=== PATIENT | female | born 1935 | race Caucasian/White ===

== ENCOUNTER 2017-09-16 19:59 | Emergency (ER) | payer MEDICARE, OTHER ==
[2015-10-06 09:55] VITALS: Ht 167.6 cm; Wt 55.8 kg
[~2017-09-16] VITALS: Ht 167.6 cm; Wt 55.8 kg
[~2017-09-16 19:59] MED LIST changes: -DILT-102 PO
--- NOTE | 2017-09-16 20:14 | ER Report ---
History and Physical Time Seen By MD: 20:13 Hx. of Stated Complaint: PT REPORTS PAIN UNDER HER LEFT BREAST WHEN SHE BREATHS. PT REPORTS THAT THE PAIN HAS BEEN THERE FOR A COUPLE OF DAYS. HPI/ROS CHIEF COMPLAINT: short of breath and chest pain HISTORY OF PRESENT ILLNESS: This is an 82 year old female. She has had some pain in the left chest for about 3 days now. Pain worsens with breathing. Has had a cough. No fevers. Daughter states that she was having some confusion at home. Has a history of atrial fibrillation and heart valve repair in the past. No history of HI. No history of PE. She is on a blood thinner, Dabigitran, for her atrial fibrillation. Found to be significantly hypoxic when vital were taken. REVIEW OF SYSTEMS: Constitutional: No fever or chills. ENT: No sore throat. No congestion. Cardiovascular: As above. Respiratory: As above. Gastrointestinal: No abdominal pain. No nausea or vomiting. Genitourinary: No dysuria or trouble urinating. Musculoskeletal: No musculoskeletal pain. Skin: No rashes. Neurological: General weakness, but no focal weakness. Allergies: Coded Allergies: Sulfa (Sulfonamide Antibiotics) (Verified Allergy, Severe, ANAPHYLAXIS, 09/16/17) edoxaban (Verified Allergy, Unknown, 09/16/17) Home Meds Active Scripts Dabigatran Etexilate Mesylate (PRADAXA) 75 Mg Capsule, 1 CAP PO BID, #180 CAPSULE 4 Refills Prov:SOHA ALBRECHT MD 07/22/17 Reported Medications Diltiazem Hcl (CARTIA XT) 120 Mg Cap.er.24h, 120 MG PO DAILY 09/16/17 Lisinopril (LISINOPRIL) 20 Mg Tablet, 20 MG PO QDAY, TAB 04/09/17 Hydrochlorothiazide (HYDROCHLOROTHIAZIDE) 12.5 Mg Capsule, 1 TAB PO QDAY, CAPSULE 04/09/17 Carvedilol (CARVEDILOL) 12.5 Mg Tablet, 6.25 MG PO BID, #10 TAB 04/09/17 Allopurinol (ZYLOPRIM) 300 Mg Tablet, 300 MG PO QDAY, TAB 04/09/17 Discontinued Reported Medications Calcium Carbonate (TUMS) Unknown Strength Tab.chew, PO, TAB.CHEW 04/09/17 Multivitamin (DAILY MULTIPLE VITAMIN) 1 Each Tablet, 1 TAB PO DAILY 04/09/17 Diltiazem Hcl (DILTIAZEM 24HR ER) 240 Mg Cap.er.24h, 120 MG PO QDAY 04/09/17 Fluticasone/Salmeterol (ADVAIR 100-50 DISKUS) 1 Each Disk.w.dev, 1 EACH IH QDAY 04/09/17 Past Medical/Surgical History Hypertension, arthritis, hiatal hernia, uterine prolapse, mitral valve repair in 1992, hernia surgery, tonsillectomy, cataracts Reviewed Nurses Notes: Yes Hx Smoking: Yes Smoking Status: Never Smoker, Former Smoker Hx Substance Use Disorder: No Hx Alcohol Use: Yes Constitutional Vital Sign - Last 24 Hours 09/16/17 09/16/17 09/16/17 09/16/17 20:03 20:05 20:07 20:10 Temp 97.7 Pulse 66 Resp 26 B/P (MAP) 55/44 (48) 87/60 87/60 (69) Pulse Ox 58 O2 Delivery Room Air O2 Flow Rate 10.0 09/16/17 09/16/17 09/16/17 09/16/17 20:14 20:15 20:30 20:30 Pulse 69 70 63 Resp 44 16 46 B/P (MAP) 69/59 (62) Pulse Ox 96 95 O2 Flow Rate 6.0 09/16/17 09/16/17 09/16/17 09/16/17 20:30 20:35 20:45 21:00 Pulse 75 63 70 Resp 16 44 43 B/P (MAP) 72/55 (61) Pulse Ox 96 94 91 O2 Delivery Oxy Mask O2 Flow Rate 10.0 09/16/17 09/16/17 09/16/17 09/16/17 21:30 21:45 21:53 21:55 Pulse 68 70 Resp 39 22 B/P (MAP) 83/63 (70) 86/60 (69) 97/63 (74) Pulse Ox 88 84 09/16/17 09/16/17 09/16/17 09/16/17 22:00 22:15 22:30 22:34 Pulse 70 74 Resp 29 24 41 B/P (MAP) 85/58 (67) 91/59 (70) 113/76 (88) Pulse Ox 78 89 88 09/16/17 09/16/17 09/16/17 22:45 22:50 23:00 Pulse 93 80 Resp 33 48 B/P (MAP) 48/22 (31) 81/58 (66) 100/59 (73) Pulse Ox 86 85 Intake and Output 09/16/17 09/16/17 09/17/17 15:00 23:00 07:00 Intake Total 1000 ml Balance 1000 ml Physical Exam General Appearance: The patient is alert. No acute distress. Eyes: Pupils are equal, round. No pallor, injection or icterus. ENT: Mucous membranes are moist. Normal oral mucosa. Posterior oropharynx is normal. Neck: Supple and non tender. Respiratory: Increased work of breathing. 58% on room air, needing 10 liters by oxymask to get sats into the 90s. Lungs are diminished throughout. There is accessory muscle use. Cardiovascular: Irregularly irregular rhythm, but normal rate. holosystolic murmur, distant sounding, gallops or rubs. Normal capillary refill. No edema. Gastrointestinal: Abdomen is soft and non tender. Nondistended. Neurological: Alert and oriented x3. No focal neurologic deficits. Skin: Warm and dry. No rashes. Musculoskeletal: No tenderness other than with palpation over anterior chest. DIFFERENTIAL DIAGNOSIS: After history and physical exam, differential diagnosis was considered for chest pain including but not limited to myocardial ischemia, pericarditis, pulmonary embolus, chest wall pain, pleural inflammation and pulmonary infectious causes. Medical Decision Making Data Points Result Diagram: 09/16/17200909/16/172009 Laboratory Hematology Test 09/16/17 20:10 09/16/17 21:18 09/16/17 22:30 Red Blood Count 4.87 M/uL (4.17-5.56) Mean Corpuscular Volume 94.3 fL (80.0-96.0) Mean Corpuscular Hemoglobin 30.7 pg (26.0-33.0) Mean Corpuscular Hemoglobin Concent 32.6 g/dL (32.0-36.0) Red Cell Distribution Width 15.7 % (11.5-14.5) Mean Platelet Volume 10.2 fL (7.2-11.1) Neutrophils (%) (Auto) 92.0 % (39.4-72.5) Lymphocytes (%) (Auto) 2.8 % (17.6-49.6) Monocytes (%) (Auto) 4.6 % (4.1-12.4) Eosinophils (%) (Auto) 0.1 % (0.4-6.7) Basophils (%) (Auto) 0.5 % (0.3-1.4) Nucleated RBC Relative Count (auto) 0.0 /100WBC Neutrophils # (Auto) 15.9 K/uL (2.0-7.4) Lymphocytes # (Auto) 0.5 K/uL (1.3-3.6) Monocytes # (Auto) 0.8 K/uL (0.3-1.0) Eosinophils # (Auto) 0.0 K/uL (0.0-0.5) Basophils # (Auto) 0.1 K/uL (0.0-0.1) Nucleated RBC Absolute Count (auto) 0.00 K/uL Peripheral Blood Smear No Y/N D-Dimer Quantitative (PE/DVT) 2.59 ug/ml (0-0.50) Sodium Level 135 mmol/L (137-145) Potassium Level 3.6 mmol/L (3.5-5.0) Chloride Level 93 mmol/L (98-107) Carbon Dioxide Level 29 mmol/L (22-31) Blood Urea Nitrogen 57 mg/dl (7-18) Creatinine 2.80 mg/dl (0.52-1.04) Glomerular Filtration Rate Calc 16.1 Random Glucose 146 mg/dl (75-110) Calcium Level 9.7 mg/dl (8.4-10.2) Total Bilirubin 0.9 mg/dl (0.2-1.3) Aspartate Amino Transf (AST/SGOT) 19 U/L (0-35) Alanine Aminotransferase (ALT/SGPT) 24 U/L (0-56) Alkaline Phosphatase 75 U/L (0-126) Troponin I 0.036 ng/ml B-Type Natriuretic Peptide 646 pg/ml (0-100) Total Protein 7.5 gm/dl (6.3-8.2) Albumin 3.9 g/dl (3.5-5.0) Urine Color [place] Urine Clarity Cloudy Urine pH 5.0 pH (4.8-9.5) Urine Specific [place] 1.018 Urine Protein 100 mg/dL (NEGATIVE) Urine Glucose (UA) Negative mg/dL (NEGATIVE) Urine Ketones Negative mg/dL (NEGATIVE) Urine Blood Negative (NEGATIVE) Urine Nitrite Negative (NEGATIVE) Urine Bilirubin Negative (NEGATIVE) Urine Urobilinogen Negative mg/dL (0.2-1.9) Urine Leukocyte Esterase Moderate (NEGATIVE) Urine RBC 12 /HPF (0-2/HPF) Urine WBC 75 /HPF (0-5/HPF) Urine Squamous Epithelial Cells Many /LPF (</=FEW) Urine Amorphous Crystals Few /HPF Urine Bacteria Negative /HPF (NONE-FEW) Urine Mucus Few /HPF (NONE-FEW) Lactate 1.7 mmol/L (0.7-2.1) Chemistry Test 09/16/17 20:10 09/16/17 21:18 09/16/17 22:30 White Blood Count 17.3 k/uL (4.5-11.0) Red Blood Count 4.87 M/uL (4.17-5.56) Hemoglobin 15.0 g/dL (12.0-16.0) Hematocrit 45.9 % (34.0-47.0) Mean Corpuscular Volume 94.3 fL (80.0-96.0) Mean Corpuscular Hemoglobin 30.7 pg (26.0-33.0) Mean Corpuscular Hemoglobin Concent 32.6 g/dL (32.0-36.0) Red Cell Distribution Width 15.7 % (11.5-14.5) Platelet Count 159 K/uL (150-450) Mean Platelet Volume 10.2 fL (7.2-11.1) Neutrophils (%) (Auto) 92.0 % (39.4-72.5) Lymphocytes (%) (Auto) 2.8 % (17.6-49.6) Monocytes (%) (Auto) 4.6 % (4.1-12.4) Eosinophils (%) (Auto) 0.1 % (0.4-6.7) Basophils (%) (Auto) 0.5 % (0.3-1.4) Nucleated RBC Relative Count (auto) 0.0 /100WBC Neutrophils # (Auto) 15.9 K/uL (2.0-7.4) Lymphocytes # (Auto) 0.5 K/uL (1.3-3.6) Monocytes # (Auto) 0.8 K/uL (0.3-1.0) Eosinophils # (Auto) 0.0 K/uL (0.0-0.5) Basophils # (Auto) 0.1 K/uL (0.0-0.1) Nucleated RBC Absolute Count (auto) 0.00 K/uL Peripheral Blood Smear No Y/N D-Dimer Quantitative (PE/DVT) 2.59 ug/ml (0-0.50) Glomerular Filtration Rate Calc 16.1 Calcium Level 9.7 mg/dl (8.4-10.2) Total Bilirubin 0.9 mg/dl (0.2-1.3) Aspartate Amino Transf (AST/SGOT) 19 U/L (0-35) Alanine Aminotransferase (ALT/SGPT) 24 U/L (0-56) Alkaline Phosphatase 75 U/L (0-126) Troponin I 0.036 ng/ml B-Type Natriuretic Peptide 646 pg/ml (0-100) Total Protein 7.5 gm/dl (6.3-8.2) Albumin 3.9 g/dl (3.5-5.0) Urine Color [place] Urine Clarity Cloudy Urine pH 5.0 pH (4.8-9.5) Urine Specific [place] 1.018 Urine Protein 100 mg/dL (NEGATIVE) Urine Glucose (UA) Negative mg/dL (NEGATIVE) Urine Ketones Negative mg/dL (NEGATIVE) Urine Blood Negative (NEGATIVE) Urine Nitrite Negative (NEGATIVE) Urine Bilirubin Negative (NEGATIVE) Urine Urobilinogen Negative mg/dL (0.2-1.9) Urine Leukocyte Esterase Moderate (NEGATIVE) Urine RBC 12 /HPF (0-2/HPF) Urine WBC 75 /HPF (0-5/HPF) Urine Squamous Epithelial Cells Many /LPF (</=FEW) Urine Amorphous Crystals Few /HPF Urine Bacteria Negative /HPF (NONE-FEW) Urine Mucus Few /HPF (NONE-FEW) Lactate 1.7 mmol/L (0.7-2.1) Coagulation Test 09/16/17 20:10 D-Dimer Quantitative (PE/DVT) 2.59 ug/ml Urinalysis Test 09/16/17 21:18 Urine Color [place] Urine Clarity Cloudy Urine pH 5.0 pH (4.8-9.5) Urine Specific [place] 1.018 Urine Protein 100 mg/dL (NEGATIVE) Urine Glucose (UA) Negative mg/dL (NEGATIVE) Urine Ketones Negative mg/dL (NEGATIVE) Urine Blood Negative (NEGATIVE) Urine Nitrite Negative (NEGATIVE) Urine Bilirubin Negative (NEGATIVE) Urine Urobilinogen Negative mg/dL (0.2-1.9) Urine Leukocyte Esterase Moderate (NEGATIVE) Urine RBC 12 /HPF (0-2/HPF) Urine WBC 75 /HPF (0-5/HPF) Urine Squamous Epithelial Cells Many /LPF (</=FEW) Urine Amorphous Crystals Few /HPF Urine Bacteria Negative /HPF (NONE-FEW) Urine Mucus Few /HPF (NONE-FEW) EKG/Imaging EKG Interpretation 12 lead EKG: Rhythm: Atrial fibrillation, rate 65 [place]: normal QRS: Low voltage ST segments: Nonspecific changes, artifact from her breathing is very significant Monitor Interpretation: Atrial Fibrillation Imaging EXAMINATION: Portable AP Chest HISTORY: Respiratory distress. COMPARISON: 10/03/2015. FINDINGS: Large hiatal hernia behind the heart. Adjacent bibasilar opacities may represent atelectasis or infiltrate. Increased interstitial markings bilaterally may represent a combination of chronic interstitial change and/or interstitial edema. No definite pleural effusion. No pneumothorax. Sternotomy with prior mitral valve surgery. Moderate cardiac enlargement, with central pulmonary vascular congestion. Aortic calcification. No acute osseous findings. IMPRESSION: 1. Large hiatal hernia. Adjacent bibasilar opacities may represent atelectasis and/or infiltrate. 2. Diffuse interstitial changes bilaterally may represent a combination of chronic interstitial change and/or interstitial edema. 3. Moderate cardiac enlargement. Sternotomy with prior mitral valve surgery. Report Dictated By: Arnulfo Hicks MD at 09/16/2017 8:37 PM ED Course/Re-evaluation Clinical Indication for ER IV: Hydration, IV Access ED Course We placed the patient on a nasal cannula at 6 liters per minute, but sats still in the 80s. Switched to an oxy-mask at 10 liters and she is less short of breath now and better mental status. Labs obtained and showed a leukocytosis with shift. She has chronic kidney disease with her creatinine usually about 1.4 , tonight it is 2.8 with a BUN of 57. Sodium mildly low at 135 and Chloride of 93. Troponin 0.036, BNP 646, d-dimer is 2.59. Chest x-ray as noted above, shows some bibasilar changes that radiology states could represent atelectasis or infiltrates. The patient is afebrile. She is on Dabigatran for atrial fibrillation. She does meet criteria for possible sepsis. Cannot rule out PE. Lactate pending. Blood cultures and urinalysis and urine culture ordered as well. NS 1000cc ordered as well and will provide more as needed. Will give Rocephin 1g IV and Azithromycin 500mg IV once the cultures are obtained. Also ordered Hydrocortisone 100mg IV as well for sepsis. She continues to improve. I have discussed the case with our hospitalist and we do not have a bed available for the patient. I spoke to the patient about this and they requested that I call down to [facility] for transfer at this time. Discussed the case with Dr. Darby, hospitalist at [facility]. I have ordered a second liter of fluid. Blood pressures are slightly improved, but still low, 90s over 60s now. Based on available transport options and patient condition, I elected to call for a helicopter for air transport. While awaiting the helicopter. The second liter of fluid was given. Her breathing remains stable on the oxygen and no further decline. Normal mental status. Lactate finally back at 1.7. Decision to Disposition Date: Sep 16, 2017 Decision to Disposition Time: 21:20 Depart Departure Latest Vital Signs Vital Signs Date Time Temp Pulse Resp B/P (MAP) Pulse Ox O2 Delivery O2 Flow Rate FiO2 09/16/17 23:00 80 48 100/59 (73) 85 09/16/17 20:30 Oxy Mask 10.0 09/16/17 20:05 97.7 Impression: Primary Impression: Pneumonia Additional Impressions: Sepsis Chest pain Hypoxia Condition: Condition Unchanged Disposition: XFER TO [facility] Referrals: SOHA ALBRECHT MD (PCP) Problem Qualifiers Primary Impression: Pneumonia Pneumonia type: due to unspecified organism Laterality: bilateral Lung location: lower lobe of lung Qualified Codes: J18.9 - Pneumonia, unspecified organism Additional Impressions: Sepsis Sepsis type: sepsis due to unspecified organism Qualified Codes: A41.9 - Sepsis, unspecified organism Chest pain Chest pain type: chest pain on breathing Qualified Codes: R07.1 - Chest pain on breathing DORIS RIOS MD Sep 16, 2017 20:14
[2017-09-16] MEDS ORDERED: ALBUTEROL/IPRATROPIUM 3 ML NEB ONE (20:17)
[2017-09-16] MEDS ORDERED: DILT-102 PO (20:18)
[2017-09-16] MEDS ORDERED: NS 0.9% 50 ML VIAL 50 ML ONE (20:31)
[2017-09-16] MEDS ORDERED: IOPAMIDOL 76% 75 ML INFUS BTL 0 ML ONE (20:31)
--- NOTE | 2017-09-16 20:32 | EKG ---
FACILITY: [facility] PATIENT NAME: KINGSLEY BRUNER : [id number] MR: [id number] V: [id number] EXAM DATE: ORDERING PHYSICIAN: DORIS RIOS TECHNOLOGIST: SHAY Diaz Reason : CARDIAC Blood Pressure : / mmHG Vent. Rate : 065 BPM Atrial Rate : 050 BPM P-R Int : 000 ms QRS Dur : 106 ms QT Int : 472 ms P-R-T Axes : 000 062 054 degrees QTc Int : 490 ms Atrial fibrillation Low voltage QRS ST and T wave abnormality, consider anterior ischemia or digitalis effect Prolonged QT Abnormal ECG When compared with ECG of 03-OCT-2015 11:00, Significant changes have occurred Confirmed by KAYA WELLINGTON ([id number]) on 09/17/2017 2:03:01 AM Referred By: Confirmed By:KAYA WELLINGTON
[2017-09-16 20:35] LABS: PLATELET COUNT, AUTOMATED 159 K/uL (150-450)
--- NOTE | 2017-09-16 20:48 | RADIOLOGY IMAGING REPORT ---
FACILITY: [facility] PATIENT NAME: Milagros Portillo : 1935 MR: [id number] V: [id number] EXAM DATE: ORDERING PHYSICIAN: DORIS RIOS TECHNOLOGIST: Location: [facility] [place] Patient: Milagros Portillo : 1935 Visit/Account:[id number] Date of Sevice: 09/16/2017 EXAMINATION: Portable AP Chest HISTORY: Respiratory distress. COMPARISON: 10/03/2015. FINDINGS: Large hiatal hernia behind the heart. Adjacent bibasilar opacities may represent atelectasis or infil trate. Increased interstitial markings bilaterally may represent a combination of chronic interstitia l change and/or interstitial edema. No definite pleural effusion. No pneumothorax. Sternotomy with prior mitral valve surgery. Moderate cardiac enlargement, with central pulmonary vasc ular congestion. Aortic calcification. No acute osseous findings. IMPRESSION: 1. Large hiatal hernia. Adjacent bibasilar opacities may represent atelectasis and/or infiltrate. 2. Diffuse interstitial changes bilaterally may represent a combination of chronic interstitial finley e and/or interstitial edema. 3. Moderate cardiac enlargement. Sternotomy with prior mitral valve surgery. Report Dictated By: Arnulfo Hicks MD at 09/16/2017 8:37 PM Report E-Signed By: Arnulfo Hicks MD at 09/16/2017 8:45 PM WSN:[id number]
[2017-09-16] MEDS ORDERED: ONDANSETRON 4 MG/2 ML VIAL IVP ONE (21:45)
[2017-09-16] MEDS ORDERED: MORPHINE 4 MG/ML SYR IVP ONE (21:45)
[2017-09-16] MEDS ORDERED: cefTRIAXone(*) 1 GM VIAL 1 GM in NS(*) 0.9% 100 ML ADDVANT BAG 100 ML IVPB ONE (21:55)
[2017-09-16] MEDS ORDERED: NS(*) 0.9% 1000 ML BAG 1,000 ML IV ONE ×2 (21:55→22:00)
[2017-09-16] MEDS ORDERED: AZITHROMYCIN(*) 500 MG 500 MG in NS(*) 0.9% 250 ML BAG 250 ML IVPB ONE (21:55)
[2017-09-16] MEDS ORDERED: HYDROCORTISONE 100 MG/2 ML IVP ONE (22:00)
[2017-09-16] MEDS ORDERED: HEPARIN (PORC) 5000 UN/ML VIAL IVP ONE (22:00)
[2017-09-16 23:45] VITALS: BP 82/51
== END 2017-09-16 23:55 | disposition short-term general hospital (02) ==
LOC: ER 20:35
DX: J18.9 Pneumonia, unspecified organism (principal); A41.9 Sepsis, unspecified organism
CPT/HCPCS: 36415; 71045; 81001; 83605; 83880; 84484; 85025; 85379; 87040; 87088; 93005; 94640; 96365; 96366; 96375; 99285; J0456; J0696; J1644; J1720; J2270; J2405; J7030; J7050; J7620; 82040; 82247; 82310; 82374; 82435; 82565; 82947; 84075; 84132; 84155; 84295; 84450; 84460; 84520; 87502; Q9967

== ENCOUNTER → 2017-09-16 | Outpatient (REF) ==
[2015-10-06 09:55] VITALS: BMI 26.0
[~2017-09-16] MED LIST: ACE3 PO; ALEN70TA44 PO; ALL300 PO; ALLO-119 PO; AMLO-101 PO; ASPI-1441 PO; ASPI81TA94 PO; BENA1TAB59 PO; CALC-515 PO; CALC-521 PO; CALC-852 PO; CARV12.578 PO; DABI75CA4 PO; DILT-102 PO; DILT180C81 PO; DILT240C PO; DILT240C76 PO; DOCU-416 PO; EDOX30TA PO; FLUT1DIS27 IH; HYDR12.556 PO; LISI-553 PO; LISI1TAB61 PO; LISI20TA29 PO; MULT-865 PO; MULT-885 PO; OXYC-373 PO
== END ==
LOC: AMB 23:28
PROVIDERS: ATTEND Nurse Practitioner
DX: Z02.9 Encounter for administrative examinations, unspecified (principal)

== ENCOUNTER → 2017-10-08 | Outpatient (REF) | payer MEDICARE, OTHER ==
[2015-10-06 09:55] VITALS: BMI 26.0
[~2017-10-08] MED LIST changes: +DILT-102 PO
== END ==
LOC: ZZLCC 13:05
PROVIDERS: ATTEND Family Medicine
DX: R63.4 Abnormal weight loss (principal)
CPT/HCPCS: 82310; 82374; 82435; 82565; 82947; 84132; 84295; 84443; 84520; 85027

== ENCOUNTER → 2017-11-07 | Outpatient (CLI) | payer MEDICARE, OTHER ==
[2015-10-06 09:55] VITALS: BMI 26.0
[~2017-11-07] MED LIST changes: +CAR6.25 PO
[2017-11-07 17:45] LABS: PLATELET COUNT, AUTOMATED 160 K/uL (150-450)
== END ==
LOC: LAB 17:22
PROVIDERS: ATTEND Family Medicine
DX: I10 Essential (primary) hypertension (principal); I48.91 Unspecified atrial fibrillation; M10.9 Gout, unspecified
CPT/HCPCS: 36415; 82040; 82247; 82310; 82374; 82435; 82565; 82947; 84075; 84132; 84155; 84295; 84450; 84460; 84520; 84550; 85025

== ENCOUNTER 2017-12-13 11:49 | Emergency (ER) | payer MEDICARE, OTHER ==
[2015-10-06 09:55] VITALS: Wt 52.2 kg
[~2017-12-13 11:49] MED LIST changes: +FLUT16SP19 NS; +RIVA15TA PO
--- NOTE | 2017-12-13 11:56 | ER Report ---
History and Physical Time Seen By MD: 11:56 HPI/ROS CHIEF COMPLAINT: Fall HISTORY OF PRESENT ILLNESS: This is an 82-year-old female who presents to the emergency department with her daughter status post fall. According to the daughter the patient fell this past Friday, mechanical in nature, hit her head on the oxygen concentrator unsure if she had a positive LOC. Patient was doing okay Friday but since then she has had increased neck pain and decreased cognitive function, the daughter does state that she normally has decreased cognitive function a baseline but seems to be worse over the last couple of days. No bleeding from the nose, ears, mouth. Patient is on Xarelto. Patient denies chest pain, short of breath, aches, fevers, nausea, vomiting, diarrhea, dysuria or headaches. REVIEW OF SYSTEMS: Constitutional: No fever, no chills. Eyes: No discharge. ENT: No sore throat. Cardiovascular: No chest pain, no palpitations. Respiratory: No cough, no shortness of breath. Gastrointestinal: No abdominal pain, no vomiting. Genitourinary: No hematuria. Musculoskeletal: As above. Skin: No rashes. Neurological: As above. Allergies: Coded Allergies: Sulfa (Sulfonamide Antibiotics) (Verified Allergy, Severe, ANAPHYLAXIS, 09/16/17) edoxaban (Verified Allergy, Unknown, 09/16/17) Home Meds Active Scripts Fluticasone Prop 50 Mcg Ns (FLONASE 50 MCG NS) 16 G[address] [place].susp, 2 SPRAYS NS QDAY for 30 Days, #1 BOT 4 Refills Prov:AYAH HINKLE MD 12/01/17 Rivaroxaban 15 Mg (XARELTO 15 MG) 15 Mg Tablet, 15 MG PO QAM for 30 Days, #30 TAB 4 Refills Prov:AYAH HINKLE MD 12/01/17 Diltiazem Hcl (CARTIA XT) 120 Mg Cap.er.24h, 120 MG PO DAILY for 90 Days, #90 CAP Prov:AYAH HINKLE MD 10/19/17 Lisinopril (LISINOPRIL) 20 Mg Tablet, 20 MG PO QDAY for 90 Days, #90 TAB Prov:AYAH HINKLE MD 10/19/17 Carvedilol (CARVEDILOL) 6.25 Mg Tab, 6.25 MG PO BID for 90 Days, #180 TAB Prov:AYAH HINKLE MD 10/19/17 Past Medical/Surgical History Patient has a past medical history of dizziness, hypertension, GERD, hiatal hernia, uterine prolapse with repair, arthritis, wears glasses, has cataracts, osteoporosis, osteopenia, mitral valve repair, tonsillectomy, A. fib. Reviewed Nurses Notes: Yes Hx Smoking: Yes Smoking Status: Never Smoker, Former Smoker Hx Substance Use Disorder: No Hx Alcohol Use: Yes Constitutional Vital Sign - Last 24 Hours 12/13/17 12/13/17 12/13/17 12/13/17 11:55 11:56 12:00 12:19 Temp 98.0 Pulse 95 76 Resp 20 B/P (MAP) 131/103 (112) 131/103 116/87 (97) Pulse Ox 91 89 O2 Delivery Room Air 12/13/17 12/13/17 12/13/17 12/13/17 12:30 12:55 13:00 13:19 Pulse 99 B/P (MAP) 101/75 (84) 109/74 (86) Pulse Ox 92 O2 Flow Rate 2.0 12/13/17 13:30 B/P (MAP) 109/80 (90) Physical Exam General Appearance: The patient is alert, has no immediate need for airway protection and no signs of toxicity, is ambulatory but requires more assistance than normal. Eyes: Pupils equal and round no pallor or injection. Sluggish pupils but responsive. ENT, Mouth: Mucous membranes are dry. No hemotympanum. Respiratory: There are no retractions, lungs are clear to auscultation. Cardiovascular: Irregular rate and rhythm, no murmurs, clicks or rubs. Gastrointestinal: Abdomen is soft and non tender, no masses, bowel sounds normal. Neurological: Alert and oriented to self, daughter and long-term memory however according to daughter she is at baseline for short-term memory. Following all commands. No focal neuro deficits. Moving all extremities. Skin: Warm and dry, no rashes. No abrasions, contusions or Jason sign. Musculoskeletal: Neck is supple, tenderness to the cervical spine around the C6 area. No step-offs, crepitus or bruising. No thoracic discomfort. Extremities are nontender, nonswollen and have full range of motion. DIFFERENTIAL DIAGNOSIS: After history and physical exam differential diagnosis was considered for head injury including but not limited to concussion, skull fracture, intraparenchymal contusion, subarachnoid, subdural and epidural hematoma. Medical Decision Making EKG/Imaging Imaging Location: [facility] Patient: Milagros Portillo : 1935 Visit/Account:[id number] Date of Sevice: 12/13/2017 HEAD W/O CONTRAST HISTORY: Fall COMPARISON STUDIES: Head CT 11/29/2016 TECHNIQUE: Contiguous axial images were obtained from the skull base to the vertex. One of the following dose optimization techniques was utilized in the performance of this exam: automated exposure control; adjustment of the mA and/ or kv according to patient size; or use of iterative reconstruction technique. Specific details can be referenced in the facility's radiology CT exam operational policy. FINDINGS: Hemorrhage: Negative Ventricles / sulci / fissures: Mild prominence of the ventricles and sulci consistent with atrophy, unchanged. Masses / midline shift: Negative White matter: Extensive periventricular/deep cerebral white matter low- attenuation consistent with small vessel disease. Rush-white differentiation: Negative Vessels: Negative Extra-axial spaces: Negative Bones/skull base: Negative Visualized mastoid air cells / paranasal sinuses: Negative Scalp and soft tissues: Negative. Other findings: None significant IMPRESSION: 1. Negative for acute intracranial blood or skull fracture. 2. Stable atrophy and small vessel disease. Report Dictated By: Renato Samuel MD at 12/13/2017 1:19 PM Report E-Signed By: Renato Samuel MD at 12/13/2017 1:21 PM WSN:[id number] Location: [facility] Patient: Milagros Portillo : 1935 Visit/Account:[id number] Date of Sevice: 12/13/2017 C-SPINE W/O CONTRAST HISTORY: Fall COMPARISON STUDIES: none TECHNIQUE: Axial images were obtained from the skull base through the upper thoracic spine without intravenous contrast. Coronal and sagittal reformatted images were obtained from the axial source data. One of the following dose optimization techniques was utilized in the performance of this exam: automated exposure control; adjustment of the mA and/or kv according to patient size; or use of iterative reconstruction technique. Specific details can be referenced in the facility's radiology CT exam operational policy. FINDINGS: Pre-vertebral soft tissues: Negative Fracture/alignment: 3 mm of anterolisthesis at C7-T1. Lucency through the lateral aspect of the C2 lateral mass extending into the vertebral foramen likely is chronic. Otherwise no evidence of acute fracture. Vertebral bodies: Negative Posterior elements: Multilevel advanced facet degeneration. Disc Spaces: Multilevel advanced degenerative disc disease with uncovertebral joint hypertrophy. Visualized soft tissues anterior neck: Negative Visualized lung / mediastinum: Negative Other findings: None significant IMPRESSION: 1. There is 3 mm of anterolisthesis at C7-T1 in a background of extensive degenerative change. 2. Lucency through the tip of the lateral mass of C2 extending into the vertebral foramen is likely chronic. Report Dictated By: Renato Samuel MD at 12/13/2017 1:21 PM Report E-Signed By: Renato Samuel MD at 12/13/2017 1:44 PM WSN:[id number] ED Course/Re-evaluation ED Course The patient was admitted to room. A history of physical obtained. Differential diagnoses were considered. A CT the head and neck were negative for any acute findings. Patient does have chronic degenerative changes in the cervical spine. I did review these results with the patient and the family. I did explain to them this is likely just a muscular type of injury, she can alternate ice and heat. I told them if she continues to have some mental status changes or the next week to 2 weeks to reconsider coming back into the ER or following up with Dr. Hinkle. The patient and family were in agreement with this plan of care and discharged home. Decision to Disposition Date: Dec 13, 2017 Decision to Disposition Time: 13:44 Depart Departure Latest Vital Signs Vital Signs Date Time Temp Pulse Resp B/P (MAP) Pulse Ox O2 Delivery O2 Flow Rate FiO2 12/13/17 13:30 109/80 (90) 12/13/17 13:19 99 92 12/13/17 12:55 2.0 12/13/17 11:56 98.0 20 Room Air Impression: Primary Impression: Fall Additional Impression: Neck pain, musculoskeletal Condition: Improved Disposition: HOME OR SELF-CARE Referrals: AYAH HINKLE MD (PCP) Patient Instructions: Acute Neck Pain (ED), Fall Prevention for Older Adults ( ED) Additional Instructions: Drink plenty of water. Get plenty of rest. Take Tylenol as needed for the neck discomfort. Be sure to remove objects on the floor that can cause a mechanical trip and fall. Follow up with Dr. Hinkle as scheduled. Return to the ED for any other concerns or worsening symptoms. Problem Qualifiers Primary Impression: Fall Encounter type: initial encounter Qualified Codes: W19.XXXA - Unspecified fall, initial encounter LIBRADO RAMAN [employer]GR[employer] DIRECTOR-BC Dec 13, 2017 11:56
--- NOTE | 2017-12-13 13:27 | RADIOLOGY IMAGING REPORT ---
FACILITY: [facility] PATIENT NAME: Milagros Portillo : 1935 MR: [id number] V: [id number] EXAM DATE: ORDERING PHYSICIAN: LIBRADO RAMAN TECHNOLOGIST: Location: [facility] Patient: Milagros Portillo : 1935 Visit/Account:[id number] Date of Sevice: 12/13/2017 HEAD W/O CONTRAST HISTORY: Fall COMPARISON STUDIES: Head CT 11/29/2016 TECHNIQUE: Contiguous axial images were obtained from the skull base to the vertex. One of the 1stdibs dose optimization techniques was utilized in the performance of this exam: automated exposure co ntrol; adjustment of the mA and/or kv according to patient size; or use of iterative reconstruction t echnique. Specific details can be referenced in the facility's radiology CT exam operational policy. FINDINGS: Hemorrhage: Negative Ventricles / sulci / fissures: Mild prominence of the ventricles and sulci consistent with atrophy, u nchanged. Masses / midline shift: Negative White matter: Extensive periventricular/deep cerebral white matter low-attenuation consistent with sm all vessel disease. Rush-white differentiation: Negative Vessels: Negative Extra-axial spaces: Negative Bones/skull base: Negative Visualized mastoid air cells / paranasal sinuses: Negative Scalp and soft tissues: Negative. Other findings: None significant IMPRESSION: 1. Negative for acute intracranial blood or skull fracture. 2. Stable atrophy and small vessel disease. Report Dictated By: Renato Samuel MD at 12/13/2017 1:19 PM Report E-Signed By: Renato Samuel MD at 12/13/2017 1:21 PM WSN:[id number]
[2017-12-13 13:30] VITALS: BP 109/80
--- NOTE | 2017-12-13 13:50 | RADIOLOGY IMAGING REPORT ---
[place] [facility] [place] NAME: Milagros Portillo : 1935 MR: [id number] V: [id number] EXAM DATE: ORDERING PHYSICIAN: LIBRADO RAMAN TECHNOLOGIST: Location: [facility] Patient: Milagros Portillo : 1935 Visit/Account:[id number] Date of Sevice: 12/13/2017 C-SPINE W/O CONTRAST HISTORY: Fall COMPARISON STUDIES: none TECHNIQUE: Axial images were obtained from the skull base through the upper thoracic spine without i ntravenous contrast. Coronal and sagittal reformatted images were obtained from the axial source data . One of the following dose optimization techniques was utilized in the performance of this exam: aut omated exposure control; adjustment of the mA and/or kv according to patient size; or use of iterativ e reconstruction technique. Specific details can be referenced in the facility's radiology CT exam op erational policy. FINDINGS: Pre-vertebral soft tissues: Negative Fracture/alignment: 3 mm of anterolisthesis at C7-T1. Lucency through the lateral aspect of the C2 la teral mass extending into the vertebral foramen likely is chronic. Otherwise no evidence of acute fra cture. Vertebral bodies: Negative Posterior elements: Multilevel advanced facet degeneration. Disc Spaces: Multilevel advanced degenerative disc disease with uncovertebral joint hypertrophy. Visualized soft tissues anterior neck: Negative Visualized lung / mediastinum: Negative Other findings: None significant IMPRESSION: 1. There is 3 mm of anterolisthesis at C7-T1 in a background of extensive degenerative change. 2. Lucency through the tip of the lateral mass of C2 extending into the vertebral foramen is likely c hronic. Report Dictated By: Renato Samuel MD at 12/13/2017 1:21 PM Report E-Signed By: Renato Samuel MD at 12/13/2017 1:44 PM WSN:[id number]
== END 2017-12-13 13:58 | disposition home or self-care (01) ==
LOC: ER 11:55
DX: M54.2 Cervicalgia (principal); W18.30XA Fall on same level, unspecified, initial encounter; M50.33 Other cervical disc degeneration, cervicothoracic region
CPT/HCPCS: 70450; 72125; 99283

== ENCOUNTER → 2018-01-07 | Outpatient (CLI) | payer MEDICARE, OTHER ==
[2015-10-06 09:55] VITALS: BMI 26.0
[2018-01-07 10:56] LABS: PLATELET COUNT, AUTOMATED 165 K/uL (150-450)
== END ==
LOC: LAB 10:17
PROVIDERS: ATTEND Family Medicine
DX: I48.91 Unspecified atrial fibrillation (principal); I10 Essential (primary) hypertension
CPT/HCPCS: 36415; 82310; 82374; 82435; 82565; 82947; 84132; 84295; 84520; 85025

== ENCOUNTER → 2018-06-23 | Outpatient (CLI) | payer MEDICARE, OTHER ==
[2015-10-06 09:55] VITALS: BMI 26.0
[~2018-06-23] MED LIST changes: +FLU180SY11 IM; +PNEU0.5D3 IM
[2018-06-23 14:24] LABS: PLATELET COUNT, AUTOMATED 187 K/uL (150-450)
== END ==
LOC: LAB 13:37
PROVIDERS: ATTEND Family Medicine
DX: I10 Essential (primary) hypertension (principal)
CPT/HCPCS: 36415; 82040; 82247; 82310; 82374; 82435; 82565; 82947; 84075; 84132; 84155; 84295; 84450; 84460; 84520; 85025

== ENCOUNTER 2018-10-30 05:25 | Inpatient (IN) | payer MEDICARE, OTHER ==
[~2018-10-30] VITALS: Ht 162.6 cm; Wt 50.8 kg
--- NOTE | 2018-10-30 05:02 | ER Report ---
History and Physical Time Seen By MD: 05:28 (RIKKI BURKS MD) HPI/ROS CHIEF COMPLAINT: Cough, confusion HISTORY OF PRESENT ILLNESS: Patient is an 83-year-old female from [place] presents to the emergency department by ambulance for approximately one week of cough congestion but increased confusion over the last 24 hours per EMS report. Patient herself is not a reliable historian although she is able to provide a somewhat of a useful history. The electronic medical record was also reviewed to obtain additional past medical history. Patient herself denies fevers or chills. She does report an upper respiratory infection including a cough for the last week. She denies any chest pain or chest pressure. Denies abdominal pain or nausea, vomiting or diarrhea. Per EMS upon arrival patient was found to be dyspneic with an O2 sat of 70%. She was initially placed on 15 L of oxygen with improvement of saturations into the upper 90 percentile range. During transport EMS was able to wean oxygen to 6 L nasal cannula keeping her saturations in the mid 90% range. There is no history of recent trauma. REVIEW OF SYSTEMS: Constitutional: No fever, no chills. Eyes: Clear ENT: No sore throat. No ear pain Cardiovascular: No chest pain, no palpitations. Respiratory: Dry cough with shortness of breath Gastrointestinal: No abdominal pain, no vomiting. Genitourinary: No hematuria. Musculoskeletal: No back pain. Skin: No rashes. Neurological: No headache. (RIKKI BURKS MD) Allergies: Coded Allergies: Sulfa (Sulfonamide Antibiotics) (Verified Allergy, Severe, ANAPHYLAXIS, 09/16/17) edoxaban (Verified Allergy, Unknown, 09/16/17) Home Meds Active Scripts Diltiazem Hcl (CARTIA XT) 120 Mg Cap.er.24h, 1 TAB PO DAILY for 90 Days, #90 CAP 4 Refills Prov:AYAH HINKLE MD 06/10/18 Carvedilol (CARVEDILOL) 6.25 Mg Tab, 6.25 MG PO daily for 90 Days, #180 TAB 4 Refills Prov:AYAH HINKLE MD 04/08/18 Lisinopril (LISINOPRIL) 20 Mg Tablet, 20 MG PO QDAY for 90 Days, #90 TAB 4 Refills Prov:AYAH HINKLE MD 7/25/18 Rivaroxaban 15 Mg (XARELTO 15 MG) 15 Mg Tablet, 1 TAB PO QAM for 90 Days, #90 TAB 4 Refills Prov:AYAH HINKLE MD 04/01/18 Reported Medications Calcium Carbonate (TUMS) 200 Mg Tab.chew, 200 MG PO, TAB.CHEW 10/30/18 Discontinued Scripts Fluticasone Prop 50 Mcg Ns (FLONASE 50 MCG NS) 16 Gm [place].susp, 2 SPRAYS NS QDAY for 30 Days, #1 BOT 4 Refills Prov:AYAH HINKLE MD 12/01/17 Past Medical/Surgical History Past medical history for stroke, atrial fibrillation, hypertension, pulmonary hypertension, gastroesophageal reflux disease, gout, osteoporosis, mitral valve repair in 1992, hysterectomy, hernia repair. Patient is DNR/DNI, (RIKKI BURKS MD) Hx Smoking: Yes Smoking Status: Never Smoker, Former Smoker Hx Substance Use Disorder: No Hx Alcohol Use: Yes (RIKKI BURKS MD) Constitutional Vital Sign - Last 24 Hours 10/30/18 10/30/18 10/30/18 10/30/18 05:04 05:06 05:25 05:40 Temp 100.2 Pulse 100 ? Resp 28 B/P (MAP) 141/120 Pulse Ox 91 O2 Delivery Nasal Cannula O2 Flow Rate 6.0 10/30/18 10/30/18 10/30/18 10/30/18 05:55 06:55 07:03 07:10 Pulse ? 94 Resp 35 34 B/P (MAP) 114/82 (93) Pulse Ox 81 92 10/30/18 07:20 B/P (MAP) 102/75 (84) Intake and Output0 10/29/18 10/29/18 10/30/18 15:00 23:00 07:00 Output Total 100 ml Balance -100 ml (RIKKI MENDIOLA MD) Physical Exam General/Constitutional: Patient is awake, alert, nontoxic and in no acute respiratory distress. Head: Normocephalic and atraumatic. Eyes: Conjunctival clear, Pupils are equal and reactive to light. Extraocular muscles are intact and symmetrical. Sclera are clear and anicteric. Ears:External canals are clear. Tympanic membranes are clear with normal landmarks and light reflex. Nares: No rhinorrhea or bleeding. Turbinates are pink and moist. Oropharyngeal: Mucous membranes are moist. There is no pharyngeal erythema or exudate. There are no palatal petechiae. Uvula is midline and symmetrical. Neck: Supple, no adenopathy. Positive JVD Cardiovascular: Heart is regular rate and rhythm without audible murmurs, rubs or gallops. Pulmonary: Lungs are poor scattered rhonchi throughout, also increased respiratory rate. Abdomen: Soft, nontender, no guarding or peritoneal signs. Extremities: No gross deformities, No peripheral cyanosis. Neuro: Alert, pleasantly confused Skin: No rashes, skin is warm dry and well perfused. (RIKKI BURKS MD) Medical Decision Making Data Points Result Diagram: 10/30/18 04510/30/18 045 Laboratory Hematology Test 10/30/18 04:50 10/30/18 05:30 10/30/18 05:38 10/30/18 08:02 Red Blood Count 4.12 M/uL (4.17-5.56) Mean Corpuscular Volume 89.6 fL (80.0-96.0) Mean Corpuscular Hemoglobin 29.5 pg (26.0-33.0) Mean Corpuscular Hemoglobin Concent 33.0 g/dL (32.0-36.0) Red Cell Distribution Width 15.0 % (11.5-14.5) Mean Platelet Volume 9.2 fL (7.2-11.1) Neutrophils (%) (Auto) 82.4 % (39.4-72.5) Lymphocytes (%) (Auto) 4.8 % (17.6-49.6) Monocytes (%) (Auto) 12.5 % (4.1-12.4) Eosinophils (%) (Auto) 0.1 % (0.4-6.7) Basophils (%) (Auto) 0.2 % (0.3-1.4) Nucleated RBC Relative Count (auto) 0.1 /100WBC Neutrophils # (Auto) 8.8 K/uL (2.0-7.4) Lymphocytes # (Auto) 0.5 K/uL (1.3-3.6) Monocytes # (Auto) 1.3 K/uL (0.3-1.0) Eosinophils # (Auto) 0.0 K/uL (0.0-0.5) Basophils # (Auto) 0.0 K/uL (0.0-0.1) Nucleated RBC Absolute Count (auto) 0.02 K/uL Prothrombin Time 19.4 seconds (12.0-14.4) Prothromb Time International Ratio 1.62 Activated Partial Thromboplast Time 36 seconds (23-35) Sodium Level 139 mmol/L (137-145) Potassium Level 4.5 mmol/L (3.5-5.0) Chloride Level 100 mmol/L (98-107) Carbon Dioxide Level 30 mmol/L (22-31) Blood Urea Nitrogen 52 mg/dl (7-18) Creatinine 1.70 mg/dl (0.52-1.04) Glomerular Filtration Rate Calc 28.6 Random Glucose 159 mg/dl (75-110) Calcium Level 9.5 mg/dl (8.4-10.2) Magnesium Level 1.9 mg/dl (1.7-2.2) Total Bilirubin 0.9 mg/dl (0.2-1.3) Aspartate Amino Transf (AST/SGOT) 46 U/L (0-35) Alanine Aminotransferase (ALT/SGPT) 40 U/L (0-56) Alkaline Phosphatase 154 U/L (0-126) B-Type Natriuretic Peptide 1500 pg/ml (0-100) Total Protein 6.9 g/dl (6.3-8.2) Albumin 3.8 g/dl (3.5-5.0) Human Chorionic Gonadotropin, Qual Negative (NEGATIVE) Influenza Virus Type A (PCR) Negative (NEGATIVE) Influenza Virus Type B (PCR) Negative (NEGATIVE) Urine Color [place] Urine Clarity Cloudy Urine pH 5.0 pH (4.8-9.5) Urine Specific [place] 1.020 Urine Protein 100 mg/dL (NEGATIVE) Urine Glucose (UA) Negative mg/dL (NEGATIVE) Urine Ketones Trace mg/dL (NEGATIVE) Urine Blood Large (NEGATIVE) Urine Nitrite Negative (NEGATIVE) Urine Bilirubin Negative (NEGATIVE) Urine Urobilinogen 4.0 mg/dL (0.2-1.9) Urine Leukocyte Esterase Negative (NEGATIVE) Urine RBC 273 /HPF (0-2/HPF) Urine WBC 145 /HPF (0-5/HPF) Urine Squamous Epithelial Cells Many /LPF (NONE-FEW) Urine Amorphous Crystals Moderate /HPF Urine Bacteria Few /HPF (NONE-FEW) Urine Hyaline Casts Many /LPF (NONE-FEW) Urine Mucus Few /HPF (NONE-FEW) Troponin I 0.053 ng/ml Chemistry Test 10/30/18 04:50 10/30/18 05:30 10/30/18 05:38 10/30/18 08:02 White Blood Count 10.7 k/uL (4.5-11.0) Red Blood Count 4.12 M/uL (4.17-5.56) Hemoglobin 12.2 g/dL (12.0-16.0) Hematocrit 36.9 % (34.0-47.0) Mean Corpuscular Volume 89.6 fL (80.0-96.0) Mean Corpuscular Hemoglobin 29.5 pg (26.0-33.0) Mean Corpuscular Hemoglobin Concent 33.0 g/dL (32.0-36.0) Red Cell Distribution Width 15.0 % (11.5-14.5) Platelet Count 153 K/uL (150-450) Mean Platelet Volume 9.2 fL (7.2-11.1) Neutrophils (%) (Auto) 82.4 % (39.4-72.5) Lymphocytes (%) (Auto) 4.8 % (17.6-49.6) Monocytes (%) (Auto) 12.5 % (4.1-12.4) Eosinophils (%) (Auto) 0.1 % (0.4-6.7) Basophils (%) (Auto) 0.2 % (0.3-1.4) Nucleated RBC Relative Count (auto) 0.1 /100WBC Neutrophils # (Auto) 8.8 K/uL (2.0-7.4) Lymphocytes # (Auto) 0.5 K/uL (1.3-3.6) Monocytes # (Auto) 1.3 K/uL (0.3-1.0) Eosinophils # (Auto) 0.0 K/uL (0.0-0.5) Basophils # (Auto) 0.0 K/uL (0.0-0.1) Nucleated RBC Absolute Count (auto) 0.02 K/uL Prothrombin Time 19.4 seconds (12.0-14.4) Prothromb Time International Ratio 1.62 Activated Partial Thromboplast Time 36 seconds (23-35) Glomerular Filtration Rate Calc 28.6 Calcium Level 9.5 mg/dl (8.4-10.2) Magnesium Level 1.9 mg/dl (1.7-2.2) Total Bilirubin 0.9 mg/dl (0.2-1.3) Aspartate Amino Transf (AST/SGOT) 46 U/L (0-35) Alanine Aminotransferase (ALT/SGPT) 40 U/L (0-56) Alkaline Phosphatase 154 U/L (0-126) B-Type Natriuretic Peptide 1500 pg/ml (0-100) Total Protein 6.9 g/dl (6.3-8.2) Albumin 3.8 g/dl (3.5-5.0) Human Chorionic Gonadotropin, Qual Negative (NEGATIVE) Influenza Virus Type A (PCR) Negative (NEGATIVE) Influenza Virus Type B (PCR) Negative (NEGATIVE) Urine Color [place] Urine Clarity Cloudy Urine pH 5.0 pH (4.8-9.5) Urine Specific [place] 1.020 Urine Protein 100 mg/dL (NEGATIVE) Urine Glucose (UA) Negative mg/dL (NEGATIVE) Urine Ketones Trace mg/dL (NEGATIVE) Urine Blood Large (NEGATIVE) Urine Nitrite Negative (NEGATIVE) Urine Bilirubin Negative (NEGATIVE) Urine Urobilinogen 4.0 mg/dL (0.2-1.9) Urine Leukocyte Esterase Negative (NEGATIVE) Urine RBC 273 /HPF (0-2/HPF) Urine WBC 145 /HPF (0-5/HPF) Urine Squamous Epithelial Cells Many /LPF (NONE-FEW) Urine Amorphous Crystals Moderate /HPF Urine Bacteria Few /HPF (NONE-FEW) Urine Hyaline Casts Many /LPF (NONE-FEW) Urine Mucus Few /HPF (NONE-FEW) Troponin I 0.053 ng/ml Coagulation Test 10/30/18 04:50 Prothrombin Time 19.4 seconds Prothromb Time International Ratio 1.62 Activated Partial Thromboplast Time 36 seconds Urinalysis Test 10/30/18 05:38 Urine Color [place] Urine Clarity Cloudy Urine pH 5.0 pH (4.8-9.5) Urine Specific [place] 1.020 Urine Protein 100 mg/dL (NEGATIVE) Urine Glucose (UA) Negative mg/dL (NEGATIVE) Urine Ketones Trace mg/dL (NEGATIVE) Urine Blood Large (NEGATIVE) Urine Nitrite Negative (NEGATIVE) Urine Bilirubin Negative (NEGATIVE) Urine Urobilinogen 4.0 mg/dL (0.2-1.9) Urine Leukocyte Esterase Negative (NEGATIVE) Urine RBC 273 /HPF (0-2/HPF) Urine WBC 145 /HPF (0-5/HPF) Urine Squamous Epithelial Cells Many /LPF (NONE-FEW) Urine Amorphous Crystals Moderate /HPF Urine Bacteria Few /HPF (NONE-FEW) Urine Hyaline Casts Many /LPF (NONE-FEW) Urine Mucus Few /HPF (NONE-FEW) (RIKKI MENDIOLA MD) EKG/Imaging EKG Interpretation EKG shows A. fib with a ventricular rate of 99 bpm with occasional PVCs. Imaging FACILITY: [facility] PATIENT NAME: Milagros Portillo : 1935 MR: [id number] V: [id number] EXAM DATE: [id number] ORDERING PHYSICIAN: RIKKI BURKS TECHNOLOGIST: Location: [facility] Patient: Milagros Portillo : 1935 Visit/Account:[id number] Date of Sevice: 10/30/2018 CHEST PA LAT HISTORY: Respiratory distress. COMPARISON: 09/16/2017 and studies dating to 10/27/2008. TECHNIQUE: PA and lateral views of the chest. FINDINGS: Tubes/lines/hardware: There are sternal closure wires. There is a cardiac valve prosthesis. Pulmonary/pleura: There are bilateral ill-defined opacities that are new. Several of them are somewhat rounded. There is curvilinear scarring or atelectasis at the left mid lung field, unchanged. There is no pneumothorax or pleural effusion. Cardiomediastinal: The cardiac silhouette is enlarged, stable. The mediastinal s ilhouette is within normal limits. There is mild aortic calcification. Bones/soft tissues: No acute osseous abnormality. There is mild to moderate degenerative change of the spine. There is stable mild wedging of T12 and L1. There is diffuse bony demineralization. The visible abdomen is normal. IMPRESSION: 1. New somewhat rounded but ill-defined opacities within the lungs. Findings may be due to pneumonia, but follow-up chest x-ray is recommended to ensure clearing. 2. Stable enlarged cardiac silhouette. 3. Diffuse bony demineralization. Report Dictated By: Kiara Clark at 10/30/2018 6:17 AM Report E-Signed By: Kiara Clark at 10/30/2018 6:23 AM WSN:[id number] (RIKKI BURKS MD) ED Course/Re-evaluation Clinical Indication for ER IV: IV Access ED Course 10/30/2018 5:32:16 am plan at this time will be an infectious workup including influenza, blood cultures, urine culture. We'll also check cardiac labs. 10/30/2018 6:37:42 am x-ray shows nodular opacities which is felt to be related to pneumonia. Patient also with rales on exam along with JVD and elevated BNP to 1500 last BNP was in the 600 range. We will give a small dose of Bumex this patient has sulfa allergy. Also dosed with Rocephin and Zithromax. Initial troponin was in the indeterminate range to repeat a troponin at 4 hour window. (RIKKI BURKS MD) ED Course Pt t/o to me awaiting rpt trop; ED visit for hypoxia, ams, uri symtpoms; found to have likely pna, chf. Trop and rpt 3 hrs later are in indiscriminate zone without st elevations; likely secondary demand; will admit for continued abx; consider broad spectrum given recent admission for pna 6 wks ago; cultures pending. Pt remains DNR/DNi. Decision to Disposition Date: Oct 30, 2018 Decision to Disposition Time: 09:02 (RIKKI MENDIOLA MD) Depart Departure Latest Vital Signs Vital Signs Date Time Temp Pulse Resp B/P (MAP) Pulse Ox O2 Delivery O2 Flow Rate FiO2 10/30/18 07:20 102/75 (84) 10/30/18 07:10 94 34 92 10/30/18 05:06 6.0 10/30/18 05:04 100.2 Nasal Cannula (RIKKI MENDIOLA MD) Impression: Primary Impression: Congestive heart failure Additional Impression: Pneumonia Condition: Improved Disposition: Admitted from ER Referrals: AYAH HINKLE MD (PCP) Problem Qualifiers Primary Impression: Congestive heart failure Heart failure type: unspecified Heart failure chronicity: acute Qualified Codes: I50.9 - Heart failure, unspecified Additional Impression: Pneumonia Pneumonia type: due to unspecified organism Laterality: bilateral Lung location: unspecified part of lung Qualified Codes: J18.9 - Pneumonia, unspecified organism RIKKI BURKS MD Oct 30, 2018 05:02 RIKKI MENDIOLA MD Oct 30, 2018 09:02
[~2018-10-30 05:25] MED LIST changes: +EMS NS 0.9%(*) 1000 ML BAG 1,000 ML IV ONE
[2018-10-30] MEDS ORDERED: CALC-515 PO (05:26)
[2018-10-30 05:52] LABS: INR 1.62
[2018-10-30 06:04] LABS: PLATELET COUNT, AUTOMATED 153 K/uL (150-450)
[2018-10-30] MEDS ORDERED: BUMETANIDE 1 MG/4 ML SDV IV ONE (06:15)
--- NOTE | 2018-10-30 06:28 | RADIOLOGY IMAGING REPORT ---
FACILITY: [facility] - [place] PATIENT NAME: Milagros Portillo : 1935 MR: [id number] V: [id number] EXAM DATE: ORDERING PHYSICIAN: RIKKI BURKS TECHNOLOGIST: Location: [facility] Patient: Milagros Portillo : 1935 Visit/Account:[id number] Date of Sevice: 10/30/2018 CHEST PA LAT HISTORY: Respiratory distress. COMPARISON: 09/16/2017 and studies dating to 10/27/2008. TECHNIQUE: PA and lateral views of the chest. FINDINGS: Tubes/lines/hardware: There are sternal closure wires. There is a cardiac valve prosthesis. Pulmonary/pleura: There are bilateral ill-defined opacities that are new. Several of them are somewha t rounded. There is curvilinear scarring or atelectasis at the left mid lung field, unchanged. There is no pneumothorax or pleural effusion. Cardiomediastinal: The cardiac silhouette is enlarged, stable. The mediastinal silhouette is within n ormal limits. There is mild aortic calcification. Bones/soft tissues: No acute osseous abnormality. There is mild to moderate degenerative change of th e spine. There is stable mild wedging of T12 and L1. There is diffuse bony demineralization. The visi ble abdomen is normal. IMPRESSION: 1. New somewhat rounded but ill-defined opacities within the lungs. Findings may be due to pneumonia, but follow-up chest x-ray is recommended to ensure clearing. 2. Stable enlarged cardiac silhouette. 3. Diffuse bony demineralization. Report Dictated By: Kiara Clark at 10/30/2018 6:17 AM Report E-Signed By: Kiara Clark at 10/30/2018 6:23 AM WSN:[id number]
--- NOTE | 2018-10-30 06:31 | EKG ---
FACILITY: [facility] - [place], [place] PATIENT NAME: KINGSLEY BRUNER : [id number] MR: [id number] V: [id number] EXAM DATE: ORDERING PHYSICIAN: RIKKI BURKS TECHNOLOGIST: ANGELITO Diaz Reason : Blood Pressure : / mmHG Vent. Rate : 099 BPM Atrial Rate : 084 BPM P-R Int : 000 ms QRS Dur : 096 ms QT Int : 332 ms P-R-T Axes : 000 076 256 degrees QTc Int : 426 ms Atrial fibrillation with premature ventricular or aberrantly conducted complexes ST and T wave abnormality, consider inferior ischemia or digitalis effect Abnormal ECG When compared with ECG of 16-SEP-2017 20:24, T wave inversion now evident in Inferior leads Nonspecific T wave abnormality has replaced inverted T waves in Anterior leads QT has shortened Confirmed by Dinesh Eduardo ([id number]) on 10/30/2018 6:37:51 AM Referred By: Confirmed By:Dinesh Stewart
[2018-10-30] MEDS ORDERED: AZITHROMYCIN(*) 500 MG 500 MG in NS(*) 0.9% 250 ML BAG 250 ML IVPB ONE (06:35)
[2018-10-30] MEDS ORDERED: cefTRIAXone 1 GM VIAL IVP ONE (06:35)
[2018-10-30 10:57] VITALS: BP 142/72
[2018-10-30] MEDS ORDERED: FLUSH 10 ML SYR IVP PRN (11:40)
--- NOTE | 2018-10-30 11:50 | Antimicrobial Stewardship ---
Antimicrobial Stewardship Empiricly appropriate: Yes (Ceftriaxone + Azithromycin) Significant PMH: Yes (Stroke, atrial fibrillation, HTN, pulmonary HTN, GERD, Gout, mitral valve repair) Support empiric regimen: Yes (CAP with acute CHF ) Approriate Cultures done: Yes (Blood Cx pending, UA contaminated) Renal/Hepatic dosing: Yes (Scr 1.7, CrCl ~20ml/min) Appropriate dose for site: Yes (antibiotics do require adjustment for renal function) IV to PO Opportunity: No Determine cumulative duration: Day 1 Determine standard duration: Total of 5-7days Comment 83 yo F with a PMH of Stroke, atrial fibrillation, HTN, pulmonary HTN, GERD, Gout, mitral valve repair, who presented with confusion and cough. She was dyspneic with an O2 sat of 70% initially, now on 4 L oxygen. WBC wnl Tmax 100.2 HR O2 on arrival 70% on RA, now on 4L with sats in 90s Scr 1.7, CrCl ~20ml/min BNP 1500 Influenza (-) Blood Cx x 2 -NGTD Chest xray - pneumonia Troponin in the indeterminate range Plan continue azithromycin and ceftriaxone for CAP, urine contaminated but p atient has a positive history of UTI in the past, if concerned, repeat UA. Total duration of therapy 5-7 days. Will monitor closely. Ignacia Schuster, PharmD, BCOP IGNACIA SCHUSTER Oct 30, 2018 11:50
--- NOTE | 2018-10-30 12:22 | History & Physical ---
History of Present Illness Chief Complaint Short of breath History of Present Illness 83yo female with extensive PMHx including CHF, atrial fibrillation, dementia. She is cared for by her daughter in their home in [place], [place]. Her daughter has noted some slow decline in her mother's functional status over the past several months, but showed dramatic change in her usual abilities over the past 2-3 days. Her daughter also noted apparent dyspnea with increased respiratory rate. She has also been coughing with some thick sputum. They have not appreciated any fevers. She has been incontinent of urine, but not stool. She has had diminished oral intake over the past several days. She was evaluated in the [facility] ER and found to have bilateral opacities consistent with possible infectious etiology (vs. malignancy). She was requiring increased oxygen to maintain saturations. She was recommended for admission. History Problems: (1) Hypertension Status: Chronic (2) Age related osteoporosis Status: Chronic (3) Atrial fibrillation Status: Chronic (4) Bowel obstruction Status: Resolved (5) Dementia Status: Chronic (6) History of mitral valve repair Status: Resolved (7) Pulmonary hypertension Onset Date: ~ 2014 Status: Chronic (8) Heart failure with reduced ejection fraction Status: Chronic Home Meds Active Scripts Diltiazem Hcl (CARTIA XT) 120 Mg Cap.er.24h, 1 TAB PO DAILY for 90 Days, #90 CAP 4 Refills Prov:AYAH HINKLE MD 06/10/18 Carvedilol (CARVEDILOL) 6.25 Mg Tab, 6.25 MG PO daily for 90 Days, #180 TAB 4 Refills Prov:AYAH HINKLE MD 04/08/18 Lisinopril (LISINOPRIL) 20 Mg Tablet, 20 MG PO QDAY for 90 Days, #90 TAB 4 Refills Prov:AYAH HINKLE MD 04/08/18 Rivaroxaban 15 Mg (XARELTO 15 MG) 15 Mg Tablet, 1 TAB PO QAM for 90 Days, #90 TAB 4 Refills Prov:AYAH HINKLE MD 04/01/18 Reported Medications Calcium Carbonate (TUMS) 200 Mg Tab.chew, 200 MG PO, TAB.CHEW 10/30/18 Discontinued Scripts Fluticasone Prop 50 Mcg Ns (FLONASE 50 MCG NS) 16 Gm Florien.susp, 2 SPRAYS NS QDAY for 30 Days, #1 BOT 4 Refills Prov:AYAH HINKLE MD 12/01/17 Allergies: Coded Allergies: Sulfa (Sulfonamide Antibiotics) (Verified Allergy, Severe, ANAPHYLAXIS, 09/16/17) edoxaban (Verified Allergy, Unknown, 09/16/17) Patient History: Cardiomegaly MOTHER, FH: cancer CHILD FH: diabetes mellitus BROTHER OR SISTER CHILD FH: hepatitis CHILD FH: prostate cancer FATHER, Gout BROTHER OR SISTER Hx Smoking: Yes Smoking Status: Never Smoker, Former Smoker Caffeine Intake: Coffee Caffeine/Cups Per Day: 4 Hx Alcohol Use: No Hx Substance Use Disorder: No Social Drug Use: Never Review of Systems Constitutional: No Fever Neurological: Weakness Respiratory: Shortness of Breath, Cough Genitourinary: Urinary Incontinence Musculoskeletal: Impaired Mobility Psychiatric: Other (dementia/increased confusion) Exam Vital Signs Vital Signs Date Time Temp Pulse Resp B/P (MAP) Pulse Ox O2 Delivery O2 Flow Rate FiO2 10/30/18 11:12 90 Nasal Cannula 4.0 10/30/18 10:57 97.9 111 24 142/72 (95) General Appearance: Alert, Awake Neuro: Other (generalized weakness) ENT: Oropharynx Clear, Other (edentulous) Cardiovascular: Other (Irregular with soft systolic murmur) Respiratory: Other (bibasilar rales with scattered rhonchi and soft expiratory wheezes) Chest: No Tenderness, Other (healed sternotomy scar) GI: Abd Soft and Non-Tender (BS present) Extremities: Warm, Perfused Integumentary: Generalized Fragile Skin Psych: Other (oriented to person and place, but not time) Medical Decision Making Data Points Result Diagram: 10/30/1844910/30/18449 Item Value Date Time B-Type Natriuretic Peptide 1500 pg/ml H 10/30/18 045 Troponin I 0.053 ng/ml 10/30/18 0802 Albumin 3.8 g/dl 10/30/18 045 Total Protein 6.9 g/dl 10/30/18 045 Troponin I 0.043 ng/ml 10/30/18 045 Alkaline Phosphatase 154 U/L H 10/30/18 0450 Alanine Aminotransferase (ALT/SGPT) 40 U/L 10/30/18 0450 Aspartate Amino Transf (AST/SGOT) 46 U/L H 10/30/18 0450 Total Bilirubin 0.9 mg/dl 10/30/18449 Calcium Level 9.5 mg/dl 10/30/18449 Magnesium Level 1.9 mg/dl 10/30/18449 Urine Color [place] 10/30/18537 Urine Clarity Cloudy 10/30/18 05 Urine pH 5.0 pH 10/30/18 05 Urine Specific [place] 1.020 10/30/18537 Urine Protein 100 mg/dL 10/30/18537 Urine Glucose (UA) Negative mg/dL 10/30/18537 Urine Ketones Trace mg/dL 10/30/18537 Urine Blood Large 10/30/18537 Urine Nitrite Negative 10/30/18537 Urine Bilirubin Negative 10/30/18537 Urine Urobilinogen 4.0 mg/dL H 10/30/18 05 Urine Leukocyte Esterase Negative 10/30/18 05 Urine RBC 273 /HPF 10/30/18 05 Urine WBC 145 /HPF 10/30/18 05 Urine Squamous Epithelial Cells Many /LPF H 10/30/18 05 Urine Amorphous Crystals Moderate /HPF 10/30/18 05 Urine Bacteria Few /HPF 10/30/18 05 Urine Mucus Few /HPF 10/30/18 05 Urine Hyaline Casts Many /LPF H 10/30/18 05 Influenza Virus Type A (PCR) Negative 10/30/18529 Influenza Virus Type B (PCR) Negative 10/30/18529 EKG / Imaging EKG Interpretation PATIENT NAME: KINGSLEY BRUNER : [id number] MR: [id number] V: [id number] EXAM DATE: ORDERING PHYSICIAN: RIKKI BURKS TECHNOLOGIST: ANGELITO Test Reason : Blood Pressure : / mmHG Vent. Rate : 099 BPM Atrial Rate : 084 BPM P-R Int : 000 ms QRS Dur : 096 ms QT Int : 332 ms P-R-T Axes : 000 076 256 degrees QTc Int : 426 ms Atrial fibrillation with premature ventricular or aberrantly conducted complexes ST and T wave abnormality, consider inferior ischemia or digitalis effect Abnormal ECG When compared with ECG of 16-SEP-2017 20:24, T wave inversion now evident in Inferior leads Nonspecific T wave abnormality has replaced inverted T waves in Anterior leads QT has shortened Confirmed by Dinesh Eduardo ([id number]) on 10/30/2018 6:37:51 AM Referred By: Confirmed By:Dinesh [facility] PATIENT NAME: Kingsley Bruner : 1935 MR: [id number] V: [id number] EXAM DATE: ORDERING PHYSICIAN: RIKKI BURKS TECHNOLOGIST: Location: [facility] Patient: Kingsley Bruner : 1935 Visit/Account:[id number] Date of Sevice: 10/30/2018 CHEST PA LAT HISTORY: Respiratory distress. COMPARISON: 09/16/2017 and studies dating to 10/27/2008. TECHNIQUE: PA and lateral views of the chest. FINDINGS: Tubes/lines/hardware: There are sternal closure wires. There is a cardiac valve prosthesis. Pulmonary/pleura: There are bilateral ill-defined opacities that are new. Several of them are somewhat rounded. There is curvilinear scarring or atelectasis at the left mid lung field, unchanged. There is no pneumothorax or pleural effusion. Cardiomediastinal: The cardiac silhouette is enlarged, stable. The mediastinal silhouette is within normal limits. There is mild aortic calcification. Bones/soft tissues: No acute osseous abnormality. There is mild to moderate degenerative change of the spine. There is stable mild wedging of T12 and L1. There is diffuse bony demineralization. The visible abdomen is normal. IMPRESSION: 1. New somewhat rounded but ill-defined opacities within the lungs. Findings may be due to pneumonia, but follow-up chest x-ray is recommended to ensure clearing. 2. Stable enlarged cardiac silhouette. 3. Diffuse bony demineralization. Report Dictated By: Kiara Clark at 10/30/2018 6:17 AM Report E-Signed By: Kiara Clark at 10/30/2018 6:23 AM [id number] Assessment and Plan Problems: (1) Pneumonia Status: Acute Assessment & Plan: It appears she may have an acute, bilateral, patchy pneumonia. The infiltrates are unusual in appearance and are concerning for the potential of malignancy. Will place on IV antibiotics, supplemental oxygen, and respiratory treatments (if needed). Will also plan on checking CT scan in next few days to evaluate. Her family is interested in evaluating for the potential of malignancy with noninvasive measures, but do not want to have aggressive interventions or treatment. They feel if she had a malignancy she would not want to treat. (2) Atrial fibrillation Status: Chronic Assessment & Plan: She has been managed with carvedilol, diltiazem, and Xarelto. Will stop her diltiazem (due to decreased EF) and increase her carvedilol dose to 6.25mg BID. Watch closely. (3) Dementia Status: Chronic Assessment & Plan: She has significant underlying dementia and appears she may have some acute delirium in addition. Will treat her acute infectious process and try to limit medications which could exacerbate the problem. Watch closely. (4) Heart failure with reduced ejection fraction Status: Chronic Assessment & Plan: Will need to watch volume status closely. She did receive a dose of IV Bumex in the ER. Will stop the diltiazem she has used for her a-fib and increase her carvedilol as noted above. Copies to: AYAH HINKLE MD ; Venous Thromboembolism Antithrombotics Is Pt On Any Antithrombotics?: Yes Exam Sepsis Risk: Severe Sepsis Risk Problem Qualifiers (1) Pneumonia: Pneumonia type: due to unspecified organism Laterality: bilateral Lung location: unspecified part of lung Qualified Codes: J18.9 - Pneumonia, unspecified organism MEAGHAN AKERS MD Oct 30, 2018 12:22
[2018-10-30] MEDS: NS(*) 0.9% 1000 ML BAG 1,000 ML IV PRN (12:24)
[2018-10-30 15:08] VITALS: BP 118/88
[2018-10-30 19:09] VITALS: BP 105/53
[2018-10-30] MEDS: MELATONIN 3 MG TAB PO SCH (20:57)
[2018-10-30] MEDS: CARVEDILOL 6.25 MG TAB PO SCH (20:58)
[2018-10-31 00:45] VITALS: BP 124/99
[2018-10-31] MEDS: AZITHROMYCIN(*) 500 MG 500 MG in NS(*) 0.9% 250 ML BAG 250 ML IVPB SCH (05:32)
[2018-10-31] MEDS: NS(*) 0.9% 1000 ML BAG 1,000 ML IV PRN (05:33)
[2018-10-31 05:54] VITALS: BP 105/77
[2018-10-31 06:28] LABS: PLATELET COUNT, AUTOMATED 155 K/uL (150-450)
[2018-10-31] MEDS: cefTRIAXone(*) 1 GM VIAL 1 GM in NS(*) 0.9% 100 ML ADDVANT BAG 100 ML IVPB SCH (07:20)
[2018-10-31] MEDS ORDERED: CARVEDILOL 6.25 MG TAB PO SCH (09:00)
[2018-10-31] MEDS ORDERED: DILTIAZEM CD 120 MG CAPCR PO SCH (09:00)
[2018-10-31 11:05] VITALS: Ht 162.6 cm; Wt 50.8 kg
[2018-10-31 11:08] VITALS: BP 119/82
[2018-10-31] MEDS: RIVAROXABAN 10 MG TAB PO SCH (11:33)
[2018-10-31] MEDS: CARVEDILOL 6.25 MG TAB PO SCH ×2 (11:33→20:49)
--- NOTE | 2018-10-31 11:44 | Hospitalist Progress Note ---
Subjective Progress Notes Subjective This patient was admitted for pneumonia. She had no acute events overnight. Patient Complains of: Cardiovascular: No: Chest Pain Respiratory: No: Shortness of Breath Physical Exam Vital Signs Date Time Temp Pulse Resp B/P (MAP) Pulse Ox O2 Delivery O2 Flow Rate FiO2 10/31/18 11:16 96 High-Flow Nasal Cannula 7.0 10/31/18 11:08 97.7 95 25 119/82 (94) Intake and Output 10/31/18 07:00 Intake Total 3390 ml Output Total 675 ml Balance 2715 ml Intake Oral 490 ml IV Total 2900 ml Output Urine Total 675 ml # Voids 1 Cardiovascular: Regular Rate and Rhythm Respiratory: Clear to Auscultation Result Diagram: 10/31/18 0538 10/31/18 0538 Assessment and Plan Problems: (1) Pneumonia Status: Acute Assessment & Plan: She did present with shortness of breath. A chest x-ray shows diffuse infiltrates, but are atypical in appearance. She did have a low grade temperature, but her WBC was normal at admission. She is on empiric tr eatment with ceftriaxone and azithromycin. Blood cultures are pending. A CT scan has been ordered to better evaluate the infiltrates. (2) Atrial fibrillation Status: Chronic Assessment & Plan: She has been managed with carvedilol, diltiazem, and Xarelto. An echocardiogram from 2017 showed an ejection fraction of 44%. Her diltiazem has been discontinued and her carvedilol dose has been increased to twice daily. (3) Dementia Status: Chronic Assessment & Plan: She has significant underlying dementia and appears she may have some acute delirium in addition. Will treat her acute infectious process and try to limit medications which could exacerbate the problem. (4) Heart failure with reduced ejection fraction Status: Chronic Assessment & Plan: She does not currently have any symptoms of acute failure. Daily weights are stable. Exam Sepsis Risk: No Definite Risk Problem Qualifiers (1) Pneumonia: Pneumonia type: due to unspecified organism Laterality: bilateral Lung location: unspecified part of lung Qualified Codes: J18.9 - Pneumonia, unspecified organism CAL GRANADOS DO Oct 31, 2018 11:44
[2018-10-31] MEDS ORDERED: IOPAMIDOL 61% 75 ML INFUS BTL 75 ML ONE (15:34)
[2018-10-31 16:01] VITALS: BP 102/71
[2018-10-31 19:30] VITALS: BP 119/90
[2018-10-31] MEDS: MELATONIN 3 MG TAB PO SCH (20:49)
[2018-10-31 22:52] VITALS: BP 102/75
--- NOTE | 2018-10-31 23:53 | RADIOLOGY IMAGING REPORT ---
FACILITY: [facility] PATIENT NAME: Milagros Portillo : 1935 MR: [id number] V: [id number] EXAM DATE: ORDERING PHYSICIAN: CAL GRANADOS TECHNOLOGIST: Location: [facility] Patient: Milagros Portillo : 1935 Visit/Account:[id number] Date of Sevice: 10/31/2018 CT of the chest, before and after contrast: Indication: Evaluation of pneumonia Technique: Helical CT was performed through the chest, before and after contrast enhancement with 75 cc of Isovue-370. Multiplanar reconstructions are reviewed. One of the following dose optimization techniques was utilized in the performance of this exam: Autom ated exposure control; adjustment of the mA and/or kV according to the patient's size; or use of an i terative reconstruction technique. Specific details can be referenced in the facility's radiology CT exam operational policy. Comparison: Chest radiograph dated 10/30/2018. Lung wright: There are multiple small, ill-defined opacities in both lungs, compatible with acute pne umonia. Some of the opacities appear nodular in morphology. There is a focal area of consolidation an d volume loss in the right upper lobe. Small areas of consolidation are present in both lower lobes. Pleural spaces: There is minimal fluid in the pleural spaces. No loculated pleural fluid collections are clearly identified. There is no evidence of pleural mass or calcification. Mediastinum: Multiple small lymph nodes are present, which is a nonspecific finding. There are no sig ns of soft tissue mass or fluid collection. A large hiatal hernia is present. Heart and vascular structures: There is moderate cardiomegaly. Left atrium is dilated. A mitral valve prosthesis is present. There are no signs of pericardial effusion. There is atherosclerotic calcification around the aortic valve. There is moderate atherosclerotic calcification in the aortic wall. Skeletal structures: There are diffuse degenerative changes in the spine. There is evidence of prior median sternotomy. The sutures appear intact. No acute skeletal deformity is clearly identified. Upper abdomen: Unremarkable, as visualized. IMPRESSION: There are multifocal small, ill-defined parenchymal opacities, compatible with acute pneu monia. A focal area of consolidation and volume loss is present in the right upper lobe. No significant pleural abnormalities are identified. Report Dictated By: Justin Hopper MD at 10/31/2018 11:32 PM Report E-Signed By: Justin Hopper MD at 10/31/2018 11:50 PM [id number]
[2018-11-01] MEDS: NS(*) 0.9% 1000 ML BAG 1,000 ML IV PRN (02:08)
[2018-11-01] MEDS: AZITHROMYCIN(*) 500 MG 500 MG in NS(*) 0.9% 250 ML BAG 250 ML IVPB SCH (05:33)
[2018-11-01 05:36] VITALS: BP 113/90
[2018-11-01 05:53] LABS: PLATELET COUNT, AUTOMATED 147 K/uL (150-450)
[2018-11-01] MEDS: cefTRIAXone(*) 1 GM VIAL 1 GM in NS(*) 0.9% 100 ML ADDVANT BAG 100 ML IVPB SCH (06:56)
[2018-11-01 08:04] VITALS: BP 102/72
[2018-11-01] MEDS ORDERED: ALBUTEROL 2.5 MG/3 ML NEB NEB PRN (09:40)
[2018-11-01] MEDS: CARVEDILOL 6.25 MG TAB PO SCH ×2 (09:49→21:29)
[2018-11-01] MEDS: RIVAROXABAN 10 MG TAB PO SCH (09:49)
--- NOTE | 2018-11-01 10:18 | NUR ---
Physical Therapy Impression PT eval completed with pt requiring Max assist by PT to pivot to BSC. Will attempt EZ lift tomorrow during co-treat with OT. Pt demos R) lean while seated at EOB and requires Mod assist to maintain upright balance at times. O2 sats monitored throughout session and pt maintained >90% on current supplemental O2 level wihtout increase needed. Physical Therapy Goals 1. Pt to be Min assist for stand/pivot transfer to/from variety of surfaces 2. Pt to be Min/CGA for supine to/from sit transfers and bed mobility 3. Pt to maintain spO2 in safe range with increased activity. Patient's Goals
--- NOTE | 2018-11-01 10:46 | Medical Nutrition Therapy ---
Nutrition Anthropometrics Height (Inches): 64.00 Height (Calculated Centimeters: 162.077235 Weight (Pounds): 113 Weight (Calculated Kilograms): 51.259 Leopoldo Nutrition Score: Probably Inadequate Leopoldo Nutrition Risk Score: 17 Dietary Referral Nutrition Risk Factors: Nutrition Risk Comment: PT HAS BEEN ILL X 1 WEEK AND WAS ADMITTED FOR REPAIR OF FEMORAL HERNIA Physical Findings Physical Appearance: Skin Appearance Skin Appearance: Edema Edema Location Modifier: Edema Location: Type of Edema: Degree of Edema: Gastrointestinal Symptoms GI Symtoms: Appetite Changes Tube Present: Bowel Sounds: Recent Bowel Pattern: Stool Characteristics: Nutritional Diagnosis Nutritional Risk Acuity 2: CHF w/Complication, Dysphagia, Swallowing Problem Nutritional Risk Acuity 3: Alzheimer's Nutritional Risk Acuity 4: Good Appetite, Age Related Past Medical History: HT, hiatal hernia, uternine prolapse, gout, primary hyperparathyroidism, bowel obstruction, mitral valve repair, pulmonary hypertension, heartfailure, HTN, a-fib, dementia, osteoporosis. Nutritional Acuity: 2-Moderate Nutrition Diagnosis: Swallowing Difficulties Nutrition Etiology: Mechanical/Motor Issues Nutrition Problem/Etiology/Sym: Swallowing difficulties as realted to mechanical/motor issues as evidenced by dysphagia 2 diet. Energy Requirement: 1247 (m st jeor X 1.1 X 1.2) Protein Requirement: 40 (0.8 g protein/kg) Fluid Requirement: 1247 (1mL/kcal) Diet Type: Dysphagia Stage 2 Nutrition Intervention: Cont diet as ordered, Encourage intake Diet Comment To RSA: Dysphagia 2 diet Nutrition Monitoring & Eval Nutrition Goals: Eat 50-100% Meal, Drink > 1500 cc/day Nutrition Follow-Up: Good Intake Nutrition Monitoring: Pt consuming 25-100% of meals RD Patient Assessment Time: [address] Assessment Type: RD Assessment Patient Nutrition Acuity: 2-Moderate Follow Up Date: Nov 04, 2018 Nutritional Comment: Pt admitted with SOB. Dx with pneumonia. Hx of HT, hiatal hernia, uternine prolapse, gout, primary hyperparathyroidism,bowel obstruction, mitral valve repair, pulmonary hypertension, heartfailure, HTN, a-fib, dementia, osteoporosis. Pt on dysphagia 2 diet with 100% intakes. Pt WBC are high at 11.1, RBC are low at 3.75, and hgb of 11.0 is also decreased. Pt BUN of 60 is elevated and creatinie of 1.40 is elevated. Albumin of 2.8 is low as is total protein of 4.9. Monitor for adequate intakes. -[facility] 11/01 Pt continues on the dysphagia 2 diet with 25-100% intakes. Pt taking rivaroxaban. Random glucose of 119 is slightly elevated. RBC of 3.71, Hgb of 10.9, and Hct of 33.8 are decreased. BUN of 67 is elevated as is creatinine of 1.40. Monitor for adeuqte intakes. -[facility] TINY MOURA Nov 01, 2018 10:46
[2018-11-01 11:41] VITALS: BP 105/90
--- NOTE | 2018-11-01 11:49 | Hospitalist Progress Note ---
Subjective Progress Notes Subjective The patient is without complaints. Staff has noted wheezing and the patient is requiring a bit more O2. Physical Exam Vital Signs Date Time Temp Pulse Resp B/P (MAP) Pulse Ox O2 Delivery O2 Flow Rate FiO2 11/01/18 10:28 98 14 11/01/18 10:22 94 Nasal Cannula 5.0 11/01/18 08:04 97.5 102/72 (82) Intake and Output 11/01/18 07:00 Intake Total 1936 ml Balance 1936 ml Intake Oral 436 ml IV Total 1500 ml # Voids 4 General Appearance: Alert, Awake, Other (mild to mod wob) Neck: Other (JVD to angle of jaw when at 30 degrees from horizontal) Respiratory: Other (Diffuse exp wheezing) Extremities: No Edema Result Diagram: 11/01/1851711/01/18517 Assessment and Plan Problems: (1) Pneumonia Status: Acute Assessment & Plan: She did present with shortness of breath. A chest x-ray shows diffuse infiltrates, but are atypical in appearance. A CT scan on 10/31 showed multifocal ill-defined parenchymal opacities and a focal consolidation in the RUL. She did have a low grade temperature, but her WBC was normal at admission. She is on empiric treatment with ceftriaxone and azithromycin. Blood cultures are pending. She is having some wheezing, so will try scheduled DuoNeb and prn albuterol. She might have COPD secondary to previous smoking history. (2) Atrial fibrillation Status: Chronic Assessment & Plan: She has been managed with carvedilol, diltiazem, and Xarelto. An echocardiogram from 2017 showed an ejection fraction of 44%. Her diltiazem has been discontinued and her carvedilol dose has been increased to twice daily. (3) Heart failure with reduced ejection fraction Status: Chronic Assessment & Plan: She does not currently have any symptoms of acute failure. Will check daily wts. Saline lock. She has received about 4.5 liters of IVF since admission, so will follow closely for exacerbation. (4) Pyuria Status: Acute Assessment & Plan: She also had microscopic hematuria on UA, but many SCE. It is growing a pansensitive E. Coli, so will be covered by Ceftriaxone. (5) Dementia Status: Chronic Assessment & Plan: She has significant underlying dementia and appears she may have some acute delirium in addition. Will treat her acute infectious process and try to limit medications which could exacerbate the problem. (6) CKD (chronic kidney disease) stage 3, GFR 30-59 ml/min Status: Chronic Assessment & Plan: Baseline creatinine is 1.1-1.4 Exam Sepsis Risk: Severe Sepsis Risk Problem Qualifiers (1) Pneumonia: Pneumonia type: due to unspecified organism Laterality: bilateral Lung location: unspecified part of lung Qualified Codes: J18.9 - Pneumonia, unspecified organism KAYA WELLINGTON MD Nov 01, 2018 11:49
[2018-11-01] MEDS: ALBUTEROL/IPRATROPIUM 3 ML NEB NEB SCH ×2 (12:41→17:38)
[2018-11-01 15:38] VITALS: BP 107/86
[2018-11-01 19:08] VITALS: BP 119/93
[2018-11-01] MEDS: MELATONIN 3 MG TAB PO SCH (21:29)
[2018-11-02 01:25] VITALS: BP 116/81
[2018-11-02] MEDS: ALBUTEROL/IPRATROPIUM 3 ML NEB NEB SCH ×3 (05:39→17:06)
[2018-11-02] MEDS: AZITHROMYCIN(*) 500 MG 500 MG in NS(*) 0.9% 250 ML BAG 250 ML IVPB SCH (06:33)
[2018-11-02] MEDS: cefTRIAXone(*) 1 GM VIAL 1 GM in NS(*) 0.9% 100 ML ADDVANT BAG 100 ML IVPB SCH (07:40)
[2018-11-02 07:41] VITALS: BP 121/87
[2018-11-02] MEDS ORDERED: FUROSEMIDE 20 MG/2 ML VIAL IVP ONE (09:05)
--- NOTE | 2018-11-02 09:35 | Hospitalist Progress Note ---
Subjective Progress Notes Subjective The patient is awake and answers questions. She denies pain. Physical Exam Vital Signs Date Time Temp Pulse Resp B/P (MAP) Pulse Ox O2 Delivery O2 Flow Rate FiO2 11/02/18 07:41 97.8 94 18 121/87 (98) 97 Nasal Cannula 4.0 Intake and Output 11/02/18 07:00 Intake Total 521 ml Balance 521 ml Intake Oral 276 ml IV Total 245 ml # Voids 5 General Appearance: Alert, Awake, Other (Moderate increased work of breathing noted.) Neuro: Other (Confused.) Eyes: PERRLA ENT: Other (Mouth breather. Lips dry.) Neck: Other (JVD to 1-2 cm below the angle of the jaw.) Cardiovascular: Other (Irregularly irregular.) Respiratory: Other GI: Soft and Non-Tender Extremities: Warm, Perfused Psych: Appropriate Mood & Affect Result Diagram: 11/01/1851711/01/18517 Assessment and Plan Problems: (1) Pneumonia Status: Acute Assessment & Plan: She did present with shortness of breath. A chest x-ray shows diffuse infiltrates, but are atypical in appearance. A CT scan on 10/31 showed multifocal ill-defined parenchymal opacities and a focal consolidation in the RUL. She did have a low grade temperature, but her WBC was normal at ad mission. She was placed on empiric treatment with ceftriaxone and azithromycin. Blood cultures are negative. She is having some wheezing, so will try scheduled DuoNeb and prn albuterol. She might have COPD secondary to previous smoking history. (2) Atrial fibrillation Status: Chronic Assessment & Plan: She has been managed with carvedilol, diltiazem, and Xarelto. An echocardiogram from 2017 showed an ejection fraction of 44%. Her diltiazem has been discontinued and her carvedilol dose has been increased to twice daily. (3) Heart failure with reduced ejection fraction Status: Chronic Assessment & Plan: She now has JVD almost to the angle of her jaw. Her weight is up 2.5 Kg. Her BNP was elevated on admission at 1500. She was initially hydrated and then saline locked. She received about 4.5 liters of IVF before she was saline locked. Will gently diurese today with Lasix 10mg IV. She apparently had a Prince on admission but pulled it out. Will follow weights. (4) Pyuria Status: Acute Assessment & Plan: She also had microscopic hematuria on UA, but many SCE. It is growing a pansensitive E. Coli, so will be covered by Ceftriaxone. (5) Dementia Status: Chronic Assessment & Plan: She has significant underlying dementia and appears she may have some acute delirium in addition. Will treat her acute infectious process and try to limit medications which could exacerbate the problem. (6) CKD (chronic kidney disease) stage 3, GFR 30-59 ml/min Status: Chronic Assessment & Plan: Baseline creatinine is 1.1-1.4 (7) Dysarthria Status: Acute Assessment & Plan: The patient's family notices a definite change in her speech. PT notices the patient is favoring her R side. Will order CT of head to further evaluate. Time Spent on Plan of Care: < 30 min Exam Sepsis Risk: Severe Sepsis Risk Problem Qualifiers (1) Pneumonia: Pneumonia type: due to unspecified organism Laterality: bilateral Lung location: unspecified part of lung Qualified Codes: J18.9 - Pneumonia, unspecified organism REG AKERS MD Nov 02, 2018 09:35
[2018-11-02] MEDS: RIVAROXABAN 10 MG TAB PO SCH (09:44)
[2018-11-02] MEDS: CARVEDILOL 6.25 MG TAB PO SCH ×2 (09:44→20:38)
[2018-11-02] MEDS ORDERED: BUMETANIDE 1 MG/4 ML SDV IV ONE (10:45)
[2018-11-02 12:25] VITALS: BP 116/96
--- NOTE | 2018-11-02 13:01 | RADIOLOGY IMAGING REPORT ---
FACILITY: [facility] PATIENT NAME: Milagros Portillo : 1935 MR: [id number] V: [id number] EXAM DATE: ORDERING PHYSICIAN: REG AKERS TECHNOLOGIST: Location: [facility] Patient: Milagros Portillo : 1935 Visit/Account:[id number] Date of Sevice: 11/02/[address] scan without contrast HISTORY: Change in mental status COMPARISONS: December 13, 2017 TECHNIQUE: Non-contrast head CT was performed with sagittal and coronal reformations. One of the following dose optimization techniques was utilized in the performance of this exam: autom ated exposure control; adjustment of the mA and/or kV according to patient size; or use of iterative reconstruction technique. Specific details can be referenced in the facility's radiology CT exam ope rational policy. FINDINGS: There is no intracranial hemorrhage, hydrocephalus or midline shift. The basal cisterns, shrestha-white differentiation, and convexity sulci are maintained. Cataract postsurgical change noted. 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 Mild unchanged atrophy. Unchanged patchy white matter hypoat tenuation. Clear mastoid air cells, mild left frontoethmoidal recess mucosal thickening. No osseous abnormality . IMPRESSION: No acute intracranial abnormality. Unchanged moderate to severe chronic small vessel ischemic change and unchanged small chronic left ce rebellar infarct. Report Dictated By: Charles Garcia MD at 11/02/2018 12:53 PM Report E-Signed By: Charles Garcia MD at 11/02/2018 12:56 PM WSN:[id number]
--- NOTE | 2018-11-02 14:48 | NUR ---
Occupational Therapy Impression Mod A bed mobility. Max Ax1 seated EOB. Significant forward lean and right lateral lean. Mod Ax2 sit<>special services coordinator EZ lift and assist to maintain upright posture in EZ lift. Recommend further rehab. Long or short term pending PLOF and assist provided at home. Occupational Therapy Goals 1) Pt will be Min A UB/LB dressing. 2) Pt will be Min A grooming/hygiene. 3) Pt will be Min A toilet task. Patient's Goal
--- NOTE | 2018-11-02 14:58 | NUR ---
Physical Therapy Impression Pt requires Mod A for supine<>sit, Max A to maintaining sitting at EOB, and Mod A x2 to stand into EZ lift. Pt will require additional rehab prior to returning home. Physical Therapy Goals 1. Pt to be Min assist for stand/pivot transfer to/from variety of surfaces 2. Pt to be Min/CGA for supine to/from sit transfers and bed mobility 3. Pt to maintain spO2 in safe range with increased activity. Patient's Goals
[2018-11-02 16:12] VITALS: BP 124/92
[2018-11-02 18:50] VITALS: BP 123/86
[2018-11-02] MEDS: MELATONIN 3 MG TAB PO SCH (20:38)
[2018-11-03] MEDS: ALBUTEROL/IPRATROPIUM 3 ML NEB NEB SCH ×3 (05:21→17:12)
[2018-11-03] MEDS: AZITHROMYCIN(*) 500 MG 500 MG in NS(*) 0.9% 250 ML BAG 250 ML IVPB SCH (05:38)
[2018-11-03 06:23] LABS: PLATELET COUNT, AUTOMATED 169 K/uL (150-450)
[2018-11-03] MEDS ORDERED: cefTRIAXone(*) 1 GM VIAL 1 GM in NS(*) 0.9% 100 ML ADDVANT BAG 100 ML IVPB SCH (08:00)
[2018-11-03 09:14] VITALS: BP 125/97
[2018-11-03] MEDS: CARVEDILOL 6.25 MG TAB PO SCH ×2 (09:20→20:59)
[2018-11-03] MEDS: RIVAROXABAN 10 MG TAB PO SCH (09:22)
--- NOTE | 2018-11-03 09:31 | NUR ---
Physical Therapy Impression Pt with improved initiation of bed mobility, supine to sit with Javed and sit to supine with min-modA x2. ModA to sit at EOB today. Pt demonstrating improved ability to rise to standing position in STS lift, but with difficulty achieving full hip extension. ModA and verbal cues to prevent pt from hitting/resting forehead on EZ lift. Rec LT sub acute rehab. Physical Therapy Goals 1. Pt to be Min assist for stand/pivot transfer to/from variety of surfaces 2. Pt to be Min/CGA for supine to/from sit transfers and bed mobility 3. Pt to maintain spO2 in safe range with increased activity. Patient's Goals
--- NOTE | 2018-11-03 10:08 | NUR ---
Occupational Therapy Impression Min Ax1 supine to sit. Mod Ax1 to maintain upright posture seated EOB. Pt frequently leaning forward, occasionally able to reposition with v/c's. 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 Assist x1 to maintain upright posture standing in EZ lift. Min A sit<>supine. Pt fatigues quickly, SpO2 >88% on 4L. Pt will require further rehab prior to discharge to daughter's home. Occupational Therapy Goals 1) Pt will be Min A UB/LB dressing. 2) Pt will be Min A grooming/hygiene. 3) Pt will be Min A toilet task. Patient's Goal
--- NOTE | 2018-11-03 10:38 | Hospitalist Progress Note ---
Subjective Progress Notes Subjective This patient was admitted for pneumonia. She had no acute events overnight. Patient Complains of: Cardiovascular: No: Chest Pain Respiratory: No: Shortness of Breath Physical Exam Vital Signs Date Time Temp Pulse Resp B/P (MAP) Pulse Ox O2 Delivery O2 Flow Rate FiO2 11/03/18 09:14 98.3 95 22 125/97 (106) 92 Nasal Cannula 2.5 Intake and Output 11/03/18 07:00 Intake Total 910 ml Balance 910 ml Intake Oral 560 ml IV Total 350 ml # Voids 4 Cardiovascular: Regular Rate and Rhythm Respiratory: Clear to Auscultation Extremities: Edema Result Diagram: 11/03/1844 11/03/18543 Assessment and Plan Problems: (1) Pneumonia Status: Acute Assessment & Plan: She did present with shortness of breath. A chest x-ray s hows diffuse infiltrates, but are atypical in appearance. A CT scan on 10/31 showed multifocal ill-defined parenchymal opacities and a focal consolidation in the RUL. She did have a low grade temperature, but her WBC was normal at admission. She was placed on empiric treatment with ceftriaxone and azithromycin. Blood cultures are negative. She has been converted to oral cefdinir and azithromycin. (2) Atrial fibrillation Status: Chronic Assessment & Plan: She has been managed with carvedilol, diltiazem, and Xarelto. An echocardiogram from 2017 showed an ejection fraction of 44%. Her diltiazem has been discontinued and her carvedilol dose has been increased to twice daily. (3) Heart failure with reduced ejection fraction Status: Chronic Assessment & Plan: Her BNP has been consistently elevated, but she had been asymptomatic. She is on chronic treatment with carvedilol, but is not on chronic diuretics. Her weight has increased over the past days. She received a small dose of Bumex yesterday. We placed her on scheduled Bumex today. (4) Pyuria Status: Acute Assessment & Plan: Her urine was contaminated, but the culture did grow E. coli. It is sensitive to the ceftriaxone. (5) Dementia Status: Chronic Assessment & Plan: She will likely require alf care at discharge. (6) CKD (chronic kidney disease) stage 3, GFR 30-59 ml/min Status: Chronic Assessment & Plan: Baseline creatinine is 1.1-1.4 (7) Dysarthria Status: Acute Assessment & Plan: The patient's family notices a definite change in her speech. Therapy has also noted that she was favoring the right. A CT scan arlen wed chronic ischemic changes and an old infarct. Exam Sepsis Risk: Sepsis Risk Problem Qualifiers (1) Pneumonia: Pneumonia type: due to unspecified organism Laterality: bilateral Lung location: unspecified part of lung Qualified Codes: J18.9 - Pneumonia, unspecified organism (2) Heart failure with reduced ejection fraction: Heart failure chronicity: acute on chronic Qualified Codes: I50.23 - Acute on chronic systolic (congestive) heart failure CAL GRANADOS DO Nov 03, 2018 10:38
[2018-11-03 11:21] VITALS: BP 129/92
[2018-11-03] MEDS: BUMETANIDE 2 MG TAB PO SCH (11:37)
--- NOTE | 2018-11-03 15:37 | NUR ---
ECF Referral - Met with patient, daughter not in room. Certainly appropriate for skilled rehab services to increase strength prior to returning home with her daughter who provides care. PASRR negative; once medically stable can be admitted to ECF.
[2018-11-03 16:23] VITALS: BP 145/100
[2018-11-03 19:25] VITALS: BP 159/106
[2018-11-03] MEDS: CEFDINIR 300 MG CAP PO SCH (20:59)
[2018-11-03] MEDS: MELATONIN 3 MG TAB PO SCH (20:59)
[2018-11-04 04:22] VITALS: BP 150/107
[2018-11-04] MEDS: ALBUTEROL/IPRATROPIUM 3 ML NEB NEB SCH ×2 (05:01→11:15)
[2018-11-04 07:49] VITALS: BP 148/105
[2018-11-04] MEDS ORDERED: AZITHROMYCIN 250 MG TAB PO SCH (09:00)
[2018-11-04] MEDS: CARVEDILOL 6.25 MG TAB PO SCH (09:06)
[2018-11-04] MEDS: CEFDINIR 300 MG CAP PO SCH (09:07)
[2018-11-04] MEDS: RIVAROXABAN 10 MG TAB PO SCH (09:07)
[2018-11-04] MEDS: BUMETANIDE 2 MG TAB PO SCH (09:08)
[2018-11-04 10:12] LABS: PLATELET COUNT, AUTOMATED 173 K/uL (150-450)
--- NOTE | 2018-11-04 10:50 | Medical Nutrition Therapy ---
Nutrition Anthropometrics Height (Inches): 64.00 Height (Calculated Centimeters: 162.955435 Weight (Pounds): 112 Weight (Calculated Kilograms): 50.802 BMI: 19.2 Leopoldo Nutrition Score: Probably Inadequate Leopoldo Nutrition Risk Score: 14 Dietary Referral Nutrition Risk Factors: Nutrition Risk Comment: PT HAS BEEN ILL X 1 WEEK AND WAS ADMITTED FOR REPAIR OF FEMORAL HERNIA Nutritional Diagnosis Nutritional Risk Acuity 2: CHF w/Complication, Dysphagia, Swallowing Problem Nutritional Risk Acuity 3: Alzheimer's (DEMENTIA DX) Nutritional Risk Acuity 4: Good Appetite, Age Related Past Medical History: HT, hiatal hernia, uternine prolapse, gout, primary hyperparathyroidism, bowel obstruction, mitral valve repair, pulmonary hypertension, heartfailure, HTN, a-fib, dementia, osteoporosis. Nutritional Acuity: 2-Moderate Nutrition Diagnosis: Swallowing Difficulties Nutrition Etiology: Mechanical/Motor Issues Nutrition Problem/Etiology/Sym: Swallowing difficulties as realted to mechanical/motor issues as evidenced by dysphagia 2 diet. Energy Requirement: 1247 (m st jeor X 1.1 X 1.2) Protein Requirement: 40 (0.8 g protein/kg) Fluid Requirement: 1247 (1mL/kcal) Diet Type: Dysphagia Stage 2, Thickened Liquid Nutrition Intervention: Cont diet as ordered, Encourage intake, Between meal supplement Diet Comment To RSA: OFFER NECTAR THICKEN NUTR SUPPLMENT Nutrition Monitoring & Eval Nutrition Goals: Eat 75-100% Meal Nutrition Follow-Up: Fair Intake RD Patient Assessment Time: [address] Assessment Type: RD Re-Assessment Patient Nutrition Acuity: 2-Moderate Follow Up Date: Nov 09, 2018 Nutritional Comment: Pt admitted with SOB. Dx with pneumonia. Hx of HT, hiatal hernia, uternine prolapse, gout, primary hyperparathyroidism,bowel obstruction, mitral valve repair, pulmonary hypertension, heartfailure, HTN, a-fib, dementia, osteoporosis. Pt on dysphagia 2 diet with 100% intakes. Pt WBC are high at 11.1, RBC are low at 3.75, and hgb of 11.0 is also decreased. Pt BUN of 60 is elevated and creatinie of 1.40 is elevated. Albumin of 2.8 is low as is total protein of 4.9. Monitor for adequate intakes. -AKG 11/01 Pt continues on the dysphagia 2 diet with 25-100% intakes. Pt taking rivaroxaban. Random glucose of 119 is slightly elevated. RBC of 3.71, Hgb of 10.9, and Hct of 33.8 are decreased. BUN of 67 is elevated as is creatinine of 1.40. Monitor for adeuqte intakes. -AKG 11/04 Pt cont on dysphagia diet with thicken liquids. Intake averge 49% of small to regular diet. Alb declined to 2.7. BUN cont elevated at 55, creatine elevated at 1.1 but has declined. Will offer nutr supplment to ensure pt is recieving adequate protein. CELIA MILAN Nov 04, 2018 10:50
--- NOTE | 2018-11-04 14:18 | Hospitalist Depart ---
Discharge Summary Reason for Hosp/Final Diag: (1) Weakness Status: Acute Hospital Course & Plan: Secondary to deconditioning and recent illness. She is working with therapy. Going to [facility] for continued therapy. (2) Pneumonia Status: Acute Hospital Course & Plan: She presented with one week of cough congestion but increased confusion over the 24 hours prior to admission. A chest x-ray shows diffuse infiltrates, but were atypical in appearance. A CT scan on 10/31 showed multifocal ill-defined parenchymal opacities and a focal consolidation in the R UL. She did have a low grade temperature, but her WBC was normal at admission. She was placed on empiric treatment with ceftriaxone and azithromycin. Blood cultures are negative. She was converted to oral cefdinir and azithromycin. Azithromycin is done, but she will continue on 5 more days of cefdinir to make a 10 day course. (3) Atrial fibrillation Status: Chronic Hospital Course & Plan: She has been managed with carvedilol, diltiazem, and Xarelto. An echocardiogram from 2017 showed an ejection fraction of 44%. Her diltiazem has been discontinued and her carvedilol dose has been increased to twice daily. (4) Heart failure with reduced ejection fraction Status: Chronic Hospital Course & Plan: Her BNP has been consistently elevated, but she had been asymptomatic. She is on chronic treatment with carvedilol, but is not on chronic diuretics. Her weight had increased over the past days. She was started on Bumex 2mg daily, but her creatinine was increasing. That has been decreased to 1mg a day. BMP tomorrow. (5) Pyuria Status: Acute Hospital Course & Plan: Her urine was contaminated, but the culture did grow E. coli. It is sensitive to the ceftriaxone. (6) Dementia Status: Chronic Hospital Course & Plan: She will likely require usp care at discharge. (7) CKD (chronic kidney disease) stage 3, GFR 30-59 ml/min Status: Chronic Hospital Course & Plan: Baseline creatinine is 1.1-1.4 (8) Dysarthria Status: Acute Hospital Course & Plan: The patient's family notices a definite change in her speech. Therapy has also noted that she was favoring the right. A CT scan show ed chronic ischemic changes and an old infarct. Departure Weight (Pounds): 112 Weight (Ounces): 8.0 Result Diagram: 11/04/18 1006 11/04/18 1006 Item Value Date Time Blood Urea Nitrogen 52 mg/dl H 10/30/18 0450 Creatinine 1.70 mg/dl H 10/30/18 0450 Total Bilirubin 0.9 mg/dl 10/30/18 0450 Aspartate Amino Transf (AST/SGOT) 46 U/L H 10/30/18 0450 Alanine Aminotransferase (ALT/SGPT) 40 U/L 10/30/18 0450 Alkaline Phosphatase 154 U/L H 10/30/18 0450 Troponin I 0.043 ng/ml 10/30/18 0450 B-Type Natriuretic Peptide 1500 pg/ml H 10/30/18 0450 Human Chorionic Gonadotropin, Qual Negative 10/30/18 045 Troponin I 0.053 ng/ml 10/30/18 0802 Magnesium Level 1.9 mg/dl 10/30/18 0450 Blood Urea Nitrogen 60 mg/dl H 10/31/18 0538 Creatinine 1.40 mg/dl H 10/31/18 0538 Blood Urea Nitrogen 67 mg/dl H 11/01/18 0518 Creatinine 1.40 mg/dl H 11/01/18 0518 Blood Urea Nitrogen 55 mg/dl H 11/03/18 0544 Creatinine 1.10 mg/dl H 11/03/18 0544 Blood Urea Nitrogen 47 mg/dl H 11/04/18 1006 Creatinine 1.20 mg/dl H 11/04/18 1006 Random Glucose 110 mg/dl 10/31/18 0538 Random Glucose 126 mg/dl H 11/03/18 0544 Random Glucose 164 mg/dl H 11/04/18 1006 Random Glucose 119 mg/dl H 11/01/18 0518 Total Bilirubin 0.4 mg/dl 10/31/18 0538 Aspartate Amino Transf (AST/SGOT) 42 U/L H 10/31/18 0538 Alanine Aminotransferase (ALT/SGPT) 53 U/L 10/31/18 0538 Alkaline Phosphatase 217 U/L H 10/31/18 0538 Total Bilirubin 0.4 mg/dl 11/03/18 0544 Aspartate Amino Transf (AST/SGOT) 78 U/L H 11/03/18 0544 Alanine Aminotransferase (ALT/SGPT) 109 U/L H 11/03/18 0544 Alkaline Phosphatase 253 U/L H 11/03/18 0544 B-Type Natriuretic Peptide 2350 pg/ml H 11/03/18 0544 Influenza Virus Type A (PCR) Negative 10/30/18 05 Influenza Virus Type B (PCR) Negative 10/30/18 0530 Urine RBC 273 /HPF 10/30/18 0538 Urine WBC 145 /HPF 10/30/18 0538 Urine Squamous Epithelial Cells Many /LPF H 10/30/18 0538 Urine Amorphous Crystals Moderate /HPF 10/30/18 0538 Urine Bacteria Few /HPF 10/30/18 0538 Urine Hyaline Casts Many /LPF H 10/30/18 0538 Urine Urobilinogen 4.0 mg/dL H 10/30/18 0538 White Blood Count 10.7 k/uL 10/30/18 0450 White Blood Count 11.1 k/uL H 10/31/18 0538 White Blood Count 10.2 k/uL 11/01/18 0518 White Blood Count 11.4 k/uL H 11/03/18 0544 White Blood Count 12.0 k/uL H 11/04/18 1006 Hemoglobin 11.7 g/dL L 11/04/18 1006 Hemoglobin 11.7 g/dL L 11/03/18 0544 Hemoglobin 10.9 g/dL L 11/01/18 0518 Hemoglobin 11.0 g/dL L 10/31/18 0538 Hemoglobin 12.2 g/dL 10/30/18 0450 Platelet Count 153 K/uL 10/30/18 0450 Platelet Count 155 K/uL 10/31/18 0538 Platelet Count 147 K/uL L 11/01/18 0518 Platelet Count 169 K/uL 11/03/18 0544 Platelet Count 173 K/uL 11/04/18 1006 Neutrophils % (Manual) 84 % H 11/04/18 1006 Band Neutrophils % 4 % 11/04/18 1006 Lymphocytes % (Manual) 8 % L 11/04/18 1006 Neutrophils % (Manual) 65 % 11/03/18 0544 Band Neutrophils % 10 % 11/03/18 0544 Lymphocytes % (Manual) 14 % L 11/03/18 0544 Band Neutrophils % 33 % 11/01/18 0518 Neutrophils % (Manual) 44 % 11/01/18 0518 Lymphocytes % (Manual) 13 % L 2/17/19 0518 Prothromb Time International Ratio 1.62 10/30/18 0450 Blood Cultures without growth x2 SPEC #: [id number] JENNIE: 10/30/18 STATUS: COMP REQ #: [id number] RECD: 10/30/[address]: RIKKI BURKS MD SOURCE: [facility]IE ENTR: 10/30/[address] [facility] DR: AYAH HINKLE MD SPDESC: ORDERED: CULT URINE ---- -------- Procedure Result Verified URINE CULTURE Final 11/03/18 Organism 1 ESCHERICHIA COLI >100,000 COL/ML Organism 2 AEROCOCCUS URINAE >100,000 COL/ML UNABLE TO PERFORM SENSITIVIES WITH OUR METHODOLOGY ESC COLI M.I.C. RX --------- --- AMPICILLIN 8 S AMPICILLIN/SULBACTAM 4 S CEFAZOLIN <=4 S CEFTAZIDIME <=1 S CEFTRIAXONE <=1 S CEFEPIME <=1 S CEFOXITIN <=4 S ERTAPENEM <=0.5 S CIPROFLOXACIN <=0.25 S GENTAMICIN <=1 S IMIPENEM <=0.25 S LEVOFLOXACIN <=0.12 S NITROFURANTOIN <=16 S PIPERACILLIN/TAZOBACTAM <=4 S TOBRAMYCIN <=1 S TRIMETHOPRIM/SULFAMETHOXAZOLE <=20 S Imaging 11/02/[address] - No acute intracranial abnormality. Unchanged moderate to severe chronic small vessel ischemic change and unchanged small chronic left cerebellar infarct. 10/31/[address] - There are multifocal small, ill-defined parenchymal opacities, compatible with acute pneumonia. A focal area of consolidation and v olume loss is present in the right upper lobe. No significant pleural abnormalities are identified. 10/30/18 CXR - 1. New somewhat rounded but ill-defined opacities within the nancy ngs. Findings may be due to pneumonia, but follow-up chest x-ray is recommended to ensure clearing. 2. Stable enlarged cardiac silhouette. 3. Diffuse bony demineralization. EKG Vent. Rate : 099 BPM Atrial Rate : 084 BPM P-R Int : 000 ms QRS Dur : 096 ms QT Int : 332 ms P-R-T Axes : 000 076 256 degrees QTc Int : 426 ms Atrial fibrillation with premature ventricular or aberrantly conducted complexes ST and T wave abnormality, consider inferior ischemia or digitalis effect Abnormal ECG When compared with ECG of 16-SEP-2017 20:24, T wave inversion now evident in Inferior leads Nonspecific T wave abnormality has replaced inverted T waves in Anterior leads QT has shortened Confirmed by Dinesh Eduardo ([id number]) on 10/30/2018 6:37:51 AM Condition: Improved Discharge: [facility] Discharge Instructions Home Meds Active Scripts Diltiazem Hcl (CARTIA XT) 120 Mg Cap.er.24h, 1 TAB PO DAILY for 90 Days, #90 CAP 4 Refills Prov:AYAH HINKLE MD 06/10/18 Carvedilol (CARVEDILOL) 6.25 Mg Tab, 6.25 MG PO daily for 90 Days, #180 TAB 4 Refills Prov:AYAH HINKLE MD 04/08/18 Lisinopril (LISINOPRIL) 20 Mg Tablet, 20 MG PO QDAY for 90 Days, #90 TAB 4 Refills Prov:AYAH HINKLE MD 04/08/18 Rivaroxaban 15 Mg (XARELTO 15 MG) 15 Mg Tablet, 1 TAB PO QAM for 90 Days, #90 TAB 4 Refills Prov:AYAH HINKLE MD 04/01/18 Reported Medications Calcium Carbonate (TUMS) 200 Mg Tab.chew, 200 MG PO, TAB.CHEW 10/30/18 Discontinued Scripts Fluticasone Prop 50 Mcg Ns (FLONASE 50 MCG NS) 16 Gm [place].susp, 2 SPRAYS NS QDAY for 30 Days, #1 BOT 4 Refills Prov:AYAH HINKLE MD 12/01/17 Activity: As Tolerated Special Instructions: Dysphagia 2 with [place] thick liquids; Medication given in applesauce; unknown last BM Copies to: AYAH HINKLE MD ; Venous Thromboembolism Antithrombotics Is Pt On Any Antithrombotics?: Yes Problem Qualifiers (1) Pneumonia: Pneumonia type: due to unspecified organism Laterality: bilateral Lung location: unspecified part of lung Qualified Codes: J18.9 - Pneumonia, unspecified organism (2) Heart failure with reduced ejection fraction: Heart failure chronicity: acute on chronic Qualified Codes: I50.23 - Acute on chronic systolic (congestive) heart failure KAYA WELLINGTON MD Nov 04, 2018 14:18
== END 2018-11-04 12:50 | DRG 193 ==
LOC: ER 05:30 → MED 10:29
PROVIDERS: ADMIT Internal Medicine; ATTEND Internal Medicine
DX: J18.9 Pneumonia, unspecified organism (principal); I50.23 Acute on chronic systolic (congestive) heart failure; I13.0 Hypertensive heart and chronic kidney disease with heart failure and stage 1 through stage 4 chronic kidney disease, or unspecified chronic kidney disease; J44.0 Chronic obstructive pulmonary disease with (acute) lower respiratory infection; N39.0 Urinary tract infection, site not specified; I48.2 Chronic atrial fibrillation; F03.90 Unspecified dementia, unspecified severity, without behavioral disturbance, psychotic disturbance, mood disturbance, and anxiety; Z88.2 Allergy status to sulfonamides; Z88.8 Allergy status to other drugs, medicaments and biological substances; Z87.891 Personal history of nicotine dependence; I27.20 Pulmonary hypertension, unspecified; K21.9 Gastro-esophageal reflux disease without esophagitis; M1A.9XX0 Chronic gout, unspecified, without tophus (tophi); M81.0 Age-related osteoporosis without current pathological fracture; Z90.710 Acquired absence of both cervix and uterus; Z66 Do not resuscitate; Z86.73 Personal history of transient ischemic attack (TIA), and cerebral infarction without residual deficits; N18.3 Chronic kidney disease, stage 3 (moderate); Z79.01 Long term (current) use of anticoagulants; R47.1 Dysarthria and anarthria; B96.20 Unspecified Escherichia coli [E. coli] as the cause of diseases classified elsewhere
CPT/HCPCS: 36415; 70450; 71046; 71270; 81001; 82040; 82247; 82310; 82374; 82435; 82565; 82947; 83735; 83880; 84075; 84132; 84155; 84295; 84450; 84460; 84484; 84520; 84703; 85025; 85610; 85730; 87040; 87077; 87088; 87186; 87502; 93005; 94640; 96365; 96375; 97161; 97166; 99285; C1758; J0456; J0696; J3490; J7030; J7050; J7613; Q9967

== ENCOUNTER → 2018-10-30 | Outpatient (CLI) | payer MEDICARE, OTHER ==
[2018-10-31 11:05] VITALS: BMI 19.4
== END ==
LOC: AMB 04:19
PROVIDERS: ATTEND Nurse Practitioner
DX: R44.3 Hallucinations, unspecified (principal); R09.02 Hypoxemia; F03.90 Unspecified dementia, unspecified severity, without behavioral disturbance, psychotic disturbance, mood disturbance, and anxiety
CPT/HCPCS: A0425; A0427

== ENCOUNTER 2018-11-04 12:50 | Inpatient (IN) | payer MEDICARE, OTHER ==
[2018-10-31 11:05] VITALS: Ht 165.1 cm; Wt 49.4 kg
[~2018-11-04] VITALS: Ht 165.1 cm; Wt 49.4 kg
[~2018-11-04 12:50] MED LIST changes: -EMS NS 0.9%(*) 1000 ML BAG 1,000 ML IV ONE
[2018-11-04 13:09] VITALS: BP 105/62
[2018-11-04] MEDS ORDERED: CEFDINIR 300 MG CAP PO SCH (13:44)
[2018-11-04] MEDS ORDERED: ALBUTEROL 2.5 MG/3 ML NEB NEB PRN (13:44)
[2018-11-04] MEDS ORDERED: FLUSH 10 ML SYR IVP PRN (13:44)
[2018-11-04] MEDS ORDERED: MAGNESIUM HYDROXIDE* 30ML UDCP PO PRN (13:50)
--- NOTE | 2018-11-04 14:12 | Consultant Pharmacy Review ---
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 MELISSA FORBES Nov 04, 2018 14:12
--- NOTE | 2018-11-04 14:22 | ECF H&P BLANK ---
ECF H&P UPDATE The patient is going to [facility] to continue working with therapy for weakness. See the discharge summary for details and updates. History of Present Illness Chief Complaint Short of breath History of Present Illness 83yo female with extensive PMHx including CHF, atrial fibrillation, dementia. She is cared for by her daughter in their home in [place], [place]. Her daughter has noted some slow decline in her mother's functional status over the past several months, but showed dramatic change in her usual abilities over the past 2-3 days. Her daughter also noted apparent dyspnea with increased respiratory rate. She has also been coughing with some thick sputum. They have not appreciated any fevers. She has been incontinent of urine, but not stool. She has had diminished oral intake over the past several days. She was evaluated in the [facility] ER and found to have bilateral opacities consistent with possible i nfectious etiology (vs. malignancy). She was requiring increased oxygen to maintain saturations. She was recommended for admission. History Problems: (1) Hypertension Status: Chronic (2) Age related osteoporosis Status: Chronic (3) Atrial fibrillation Status: Chronic (4) Bowel obstruction Status: Resolved (5) Dementia Status: Chronic (6) History of mitral valve repair Status: Resolved (7) Pulmonary hypertension Onset Date: ~ 2014 Status: Chronic (8) Heart failure with reduced ejection fraction Status: Chronic Home Meds Active Scripts Diltiazem Hcl (CARTIA XT) 120 Mg Cap.er.24h, 1 TAB PO DAILY for 90 Days, #90 CAP 4 Refills Prov:AYAH HINKLE MD 06/10/18 Carvedilol (CARVEDILOL) 6.25 Mg Tab, 6.25 MG PO daily for 90 Days, #180 TAB 4 Refills Prov:AYAH HINKLE MD 04/08/18 Lisinopril (LISINOPRIL) 20 Mg Tablet, 20 MG PO QDAY for 90 Days, #90 TAB 4 Refills Prov:AYAH HINKLE MD 04/08/18 Rivaroxaban 15 Mg (XARELTO 15 MG) 15 Mg Tablet, 1 TAB PO QAM for 90 Days, #90 TAB 4 Refills Prov:AYAH HINKLE MD 04/01/18 Reported Medications Calcium Carbonate (TUMS) 200 Mg Tab.chew, 200 MG PO, TAB.CHEW 10/30/18 Discontinued Scripts Fluticasone Prop 50 Mcg Ns (FLONASE 50 MCG NS) 16 Gm [employer].susp, 2 SPRAYS NS QDAY for 30 Days, #1 BOT 4 Refills Prov:AYAH HINKLE MD 12/01/17 Allergies: Coded Allergies: Sulfa (Sulfonamide Antibiotics) (Verified Allergy, Severe, ANAPHYLAXIS, 09/16/17) edoxaban (Verified Allergy, Unknown, 09/16/17) Patient History: Cardiomegaly MOTHER, FH: cancer CHILD FH: diabetes mellitus BROTHER OR SISTER CHILD FH: hepatitis CHILD FH: prostate cancer FATHER, Gout BROTHER OR SISTER Hx Smoking: Yes Smoking Status: Never Smoker, Former Smoker Caffeine Intake: Coffee Caffeine/Cups Per Day: 4 Hx Alcohol Use: No Hx Substance Use Disorder: No Social Drug Use: Never Review of Systems Constitutional: No Fever Neurological: Weakness Respiratory: Shortness of Breath, Cough Genitourinary: Urinary Incontinence Musculoskeletal: Impaired Mobility Psychiatric: Other (dementia/increased confusion) Exam Vital Signs Vital Signs Date Time Temp Pulse Resp B/P (MAP) Pulse Ox O2 Delivery O2 Flow Rate FiO2 10/30/18 11:12 90 Nasal Cannula 4.0 10/30/18 10:57 97.9 111 24 142/72 (95) General Appearance: Alert, Awake Neuro: Other (generalized weakness) ENT: Oropharynx Clear, Other (edentulous) Cardiovascular: Other (Irregular with soft systolic murmur) Respiratory: Other (bibasilar rales with scattered rhonchi and soft expiratory wheezes) Chest: No Tenderness, Other (healed sternotomy scar) GI: Abd Soft and Non-Tender (BS present) Extremities: Warm, Perfused Integumentary: Generalized Fragile Skin Psych: Other (oriented to person and place, but not time) Medical Decision Making Data Points Result Diagram: 10/30/18 04510/30/18 045 Item Value Date Time B-Type Natriuretic Peptide 1500 pg/ml H 10/30/18 0450 Troponin I 0.053 ng/ml 10/30/18 0802 Albumin 3.8 g/dl 10/30/18 045 Total Protein 6.9 g/dl 10/30/18 045 Troponin I 0.043 ng/ml 10/30/18 045 Alkaline Phosphatase 154 U/L H 10/30/18 0450 Alanine Aminotransferase (ALT/SGPT) 40 U/L 10/30/18449 Aspartate Amino Transf (AST/SGOT) 46 U/L H 10/30/18449 Total Bilirubin 0.9 mg/dl 10/30/18449 Calcium Level 9.5 mg/dl 10/30/18449 Magnesium Level 1.9 mg/dl 10/30/18449 Urine Color Rozina 10/30/18537 Urine Clarity Cloudy 10/30/18537 Urine pH 5.0 pH 10/30/18537 Urine Specific [place] 1.020 10/30/18537 Urine Protein 100 mg/dL 10/30/18537 Urine Glucose (UA) Negative mg/dL 10/30/18537 Urine Ketones Trace mg/dL 10/30/18537 Urine Blood Large 10/30/18537 Urine Nitrite Negative 10/30/18537 Urine Bilirubin Negative 10/30/18537 Urine Urobilinogen 4.0 mg/dL H 10/30/18537 Urine Leukocyte Esterase Negative 10/30/18537 Urine RBC 273 /HPF 10/30/18537 Urine WBC 145 /HPF 10/30/18 05 Urine Squamous Epithelial Cells Many /LPF H 10/30/18 0538 Urine Amorphous Crystals Moderate /HPF 10/30/18 05 Urine Bacteria Few /HPF 10/30/18537 Urine Mucus Few /HPF 10/30/18 05 Urine Hyaline Casts Many /LPF H 10/30/18 05 Influenza Virus Type A (PCR) Negative 10/30/18529 Influenza Virus Type B (PCR) Negative 10/30/18529 EKG / Imaging EKG Interpretation PATIENT NAME: KINGSLEY BRUNER : [id number] MR: [id number] V: [id number] EXAM DATE: ORDERING PHYSICIAN: RIKKI BURKS TECHNOLOGIST: ANGELITO Test Reason : Blood Pressure : / mmHG Vent. Rate : 099 BPM Atrial Rate : 084 BPM P-R Int : 000 ms QRS Dur : 096 ms QT Int : 332 ms P-R-T Axes : 000 076 256 degrees QTc Int : 426 ms Atrial fibrillation with premature ventricular or aberrantly conducted complexes ST and T wave abnormality, consider inferior ischemia or digitalis effect Abnormal ECG When compared with ECG of 16-SEP-2017 20:24, T wave inversion now evident in Inferior leads Nonspecific T wave abnormality has replaced inverted T waves in Anterior leads QT has shortened Confirmed by Dinesh Eduardo ([id number]) on 10/30/2018 6:37:51 AM Referred By: Confirmed By:Dinesh [facility] PATIENT NAME: Kingsley Bruner : 1935 MR: [id number] V: [id number] EXAM DATE: ORDERING PHYSICIAN: RIKKI BURKS TECHNOLOGIST: [facility] Patient: Kingsley Bruner : 1935 Visit/Account:[id number] Date of Sevice: 10/30/2018 CHEST PA LAT HISTORY: Respiratory distress. COMPARISON: 09/16/2017 and studies dating to 10/27/2008. TECHNIQUE: PA and lateral views of the chest. FINDINGS: Tubes/lines/hardware: There are sternal closure wires. There is a cardiac valve prosthesis. Pulmonary/pleura: There are bilateral ill-defined opacities that are new. Several of them are somewhat rounded. There is curvilinear scarring or atelectasis at the left mid lung field, unchanged. There is no pneumothorax or pleural effusion. Cardiomediastinal: The cardiac silhouette is enlarged, stable. The mediastinal silhouette is within normal limits. There is mild aortic calcification. Bones/soft tissues: No acute osseous abnormality. There is mild to moderate degenerative change of the spine. There is stable mild wedging of T12 and L1. There is diffuse bony demineralization. The visible abdomen is normal. IMPRESSION: 1. New somewhat rounded but ill-defined opacities within the lungs. Findings may be due to pneumonia, but follow-up chest x-ray is recommended to ensure yeny aring. 2. Stable enlarged cardiac silhouette. 3. Diffuse bony demineralization. Report Dictated By: Kiara Clark at 10/30/2018 6:17 AM Report E-Signed By: Kiara Clark at 10/30/2018 6:23 AM [id number] Assessment and Plan Problems: (1) Pneumonia Status: Acute Assessment & Plan: It appears she may have an acute, bilateral, patchy pneumonia. The infiltrates are unusual in appearance and are concerning for the potential of malignancy. Will place on IV antibiotics, supplemental oxygen, and respiratory treatments (if needed). Will also plan on checking CT scan in next few days to evaluate. Her family is interested in evaluating for the potential of malignancy with noninvasive measures, but do not want to have aggressive interventions or treatment. They feel if she had a malignancy she would not want to treat. (2) Atrial fibrillation Status: Chronic Assessment & Plan: She has been managed with carvedilol, diltiazem, and Xarelto. Will stop her diltiazem (due to decreased EF) and increase her carvedilol dose to 6.25mg BID. Watch closely. (3) Dementia Status: Chronic Assessment & Plan: She has significant underlying dementia and appears she may have some acute delirium in addition. Will treat her acute infectious process and try to limit medications which could exacerbate the problem. Watch closely. (4) Heart failure with reduced ejection fraction Status: Chronic Assessment & Plan: Will need to watch volume status closely. She did receive a dose of IV Bumex in the ER. Will stop the diltiazem she has used for her a-fib and increase her carvedilol as noted above. Copies to: AYAH HINKLE MD ; Venous Thromboembolism Antithrombotics Is Pt On Any Antithrombotics?: Yes Exam Sepsis Risk: Severe Sepsis Risk Problem Qualifiers (1) Pneumonia: Pneumonia type: due to unspecified organism Laterality: bilateral Lung location: unspecified part of lung Qualified Codes: J18.9 - Pneumonia, unspecified organism MEAGHAN AKERS MD Oct 30, 2018 12:22 <Electronically signed by MEAGHAN AKERS MD> D/ 1227 21 21 [facility]/ CC: AYAH HINKLE MD, LARS MD Nov 04, 2018 14:22
--- NOTE | 2018-11-04 16:10 | NUR ---
Occupational Therapy Impression OT evaluation completed. Recommend EZ lift with assist x2 for nursing staff and constant supervision when OOB or out of reclined chair. Seated EOB and on BSC, pt with significant forward lean and right lean that daughter reports was at baseline. Pt unsafe to leave unattended when seated EOB, on toilet etc. When in chair, pt must be reclined to prevent forward lean. Occupational Therapy Goals 1) Pt will be Min A UB/LB dressing. 2) Pt will be SBA toilet task. 3) Pt will Min A grooming/hygiene seated. 4) Pt Sparkle Index of ADLs will improve by two points. Patient's Goal
--- NOTE | 2018-11-04 16:24 | OT ECF NOTE ---
Type of Note: Initial Note Primary Medical Diagnosis: Generalized weakness s/p hospital admission for pneumonia Occupational Therapy Evaluation Date: 11/04/18 SUBJECTIVE: Prior Hospitalization: H 10/30/18 thru 11/04/18 Prior Level of Function: Pt resides with daughter in [place], [place]. Pt was independent with dressing, toileting, and feeding. Pt received assist for bathing and all IADLs. She ambulated household distances with a RW. Daughter reports 07/04 supervision for pt provided by family. At baseline, pt had right lateral lean seated and ambulating as well was forward lean when seated. Prior Living Status: Single level house Living with family Assist by family Community Services: Support adequate-07/04 supervision provided by family members No known needs Home Accessibility: Stairs with rails All needs on one level Walk-in shower Equipment Owned: Front wheeled walker Tub/shower chair Medical Complications/Past Medical History: Dementia, CHF, AFib Psychosocial Support: Supportive family. Daughter "CJ" Son "Froylan" Pain Scale (0-10): No paint reported at time of evaluation. Pt reporting significant fatigue. OBJECTIVE: Strength: MMT: Right Left Shoulder Flexion WFL WFL Elbow Flexion WFL WFL Wrist Extension WFL WFL Bar Host/Hostess WFL WFL (5= normal, 4= good, 3= fair, 2= poor, 1= trace) ROM: Both upper extremities, WFL Daughter reports pt had a significant right lateral lean and forward lean at baseline. Needs to be supervised when OOB and not in reclined chair due to high risk of falling. Sensation: Intact, no concerns Functional Transfer: Assistive Device: Gait belt Transfer Ability: 1-person assist, Maximum assistance, Total assistance Unable to tolerate rolling walker at this time. Recommend 2 person assist with EZ lift. ADL: Upper body dressing: Assistive device: Upper body dressing ability: Maximum assistance Lower body dressing: Assistive device: Lower body dressing ability: Maximum assistance Toileting: Assistive device: Bedside Commode Toileting ability: Maximum assistance Grooming/hygiene: Assistive device: Grooming ability: N/T Bathing: Assistive device: Bathing ability: N/T Standardized Assessment: Sparkle Index of Activities of Daily Livin/20 upon initial evaluation (11/04/18). ASSESSMENT: Milagros [facility] to [facility] decreased activity tolerance and independence with ADLs. At [facility], she was independent with toileting/dressing and ambulating household distances with a RW. Currently, she requires 2 person EZ lift and Max- Total A for ADLs. She will benefit from skilled OT services to improve endurance and optimize (I) for ADLs. Problem List/Current Limitations: Decreased activity tolerance Decreased strength Decreased ROM Decreased balance Generalized weakness Poor safety awareness Memory deficits Short Term Goals: 1) Pt will be Min A UB/LB dressing. 2) Pt will be SBA toilet task. 3) Pt will Min A grooming/hygiene seated. 4) Pt Sparkle Index of ADLs will improve by two points. Prison Goals: Return home with continued 24/ assist from family and HH services Patient Goals: Return home Rehabilitation Prognosis: Fair Barriers to Discharge: Cognition, Decreased independence at baseline PLAN: The patient will benefit from skilled occupational therapy services 5 times per week for 2 weeks including: Ther ex ADL training Safety training Ther act IADL training Transfer training Adaptive equip training Bed mobility Energy conservation Thank you for this referral. If you have any questions, concerns, or comments about this report or plan, please contact me at . Meli Oliver MS, OTR/L Occupational Therapist TIP
--- NOTE | 2018-11-04 17:06 | NUR ---
ST Encounter Bedside swallow assessment complete. Recommend dysphagia II diet and thin liquids. Constant supervision with meals due to cognitive dysphagia and difficulty with self-feeding. Pt with single cough response following consumption of thin liquids via cup rim. Cough successfully eliminated with use of small bore straw. All other trials tolerated with no overt signs of aspiration. Brief course of ST is indicated to monitor diet tolerance and provide pt/family/caregiver instruction in compensatory swallow strategies. Deficits appear largely secondary to cognitive impairments, respiratory compromise, and lack of dentition. 1. Diet: dysphagia II (mechanically altered), thin liquids 2. Medications: whole, immersed in puree, one at a time 3. Supervision: constant supervision at meals 4. Compensations: provide small bore straws with liquids, cue to consume small bites and sips, one at a time, encourage mastication cycles, cue to initiate swallow, check for pocketing/residue after meals, ensure upright positioning (up to chair if possible) during all PO intake.
[2018-11-04] MEDS: ALBUTEROL/IPRATROPIUM 3 ML NEB NEB SCH (17:21)
[2018-11-04 19:40] VITALS: BP 117/76
[2018-11-04] MEDS: DOCUSATE SODIUM 100 MG CAP PO SCH (20:31)
[2018-11-04] MEDS: CEFDINIR 300 MG CAP PO SCH (20:31)
[2018-11-04] MEDS: CARVEDILOL 6.25 MG TAB PO SCH (20:31)
[2018-11-04] MEDS: MELATONIN 3 MG TAB PO SCH (20:32)
--- NOTE | 2018-11-04 22:05 | NUR ---
Patient with dementia and has been sundowning tonight. It was reported that patient has fallen out of bed frequently. Bed alarm will be set to prevent falls.
[2018-11-05] MEDS: ALBUTEROL/IPRATROPIUM 3 ML NEB NEB SCH ×3 (05:35→17:21)
[2018-11-05 06:31] LABS: PLATELET COUNT, AUTOMATED 180 K/uL (150-450)
[2018-11-05 08:30] VITALS: BP 115/78
[2018-11-05] MEDS: DOCUSATE SODIUM 100 MG CAP PO SCH ×2 (08:50→20:28)
[2018-11-05] MEDS: POLYETHYLENE GLYCOL 17 GM PKT PO SCH (08:50)
[2018-11-05] MEDS: CARVEDILOL 6.25 MG TAB PO SCH ×2 (08:50→20:28)
[2018-11-05] MEDS: BUMETANIDE 2 MG TAB PO SCH (08:50)
[2018-11-05] MEDS: RIVAROXABAN 10 MG TAB PO SCH (08:50)
[2018-11-05] MEDS: CEFDINIR 300 MG CAP PO SCH ×2 (08:50→20:28)
--- NOTE | 2018-11-05 10:18 | NUR ---
Tabs in place Pt up to chair, tabs alarm on Pt related to recent falls and confusion. Hourly rounds completed, call light with patient.
--- NOTE | 2018-11-05 10:18 | NUR ---
Occupational Therapy Impression Max Ax2 pivot bed<>BSC with RW. Max Ax2 sit<>stand and ambulation x6ft with RW. V/c's and physical assist to manage RW. Mod A UB dressing. Max Ax2 toileting. Pt with improved postural control this date. Recommend EZ lift with assist x1-2 for nursing as pt (I) varies with fatigue and time of day. Discussed with nursing having pt sit upright in w/c or dining room chair for all supervised meals. Occupational Therapy Goals 1) Pt will be Min A UB/LB dressing. 2) Pt will be SBA toilet task. 3) Pt will Min A grooming/hygiene seated. 4) Pt Sparkle Index of ADLs will improve by two points. Patient's Goal
--- NOTE | 2018-11-05 13:06 | Medical Nutrition Therapy ---
Nutrition Anthropometrics Height (Inches): 65.00 Height (Calculated Centimeters: 165.552193 Weight (Pounds): 112 Weight (Calculated Kilograms): 51.029 BMI: 18.7 Leopoldo Nutrition Score: Probably Inadequate Leopoldo Nutrition Risk Score: 13 Dietary Referral Nutrition Risk Factors: Nutrition Risk Comment: PT HAS BEEN ILL X 1 WEEK AND WAS ADMITTED FOR REPAIR OF FEMORAL HERNIA Physical Findings Physical Appearance: Underweight BMI<19 Skin Appearance Skin Appearance: Edema Edema Location Modifier: Edema Location: Type of Edema: Degree of Edema: Gastrointestinal Symptoms GI Symtoms: Appetite Changes Tube Present: Bowel Sounds: Recent Bowel Pattern: Stool Characteristics: Nutritional Diagnosis Nutritional Risk Acuity 2: Dysphagia, Swallowing Problem Nutritional Risk Acuity 3: Alzheimer's (dementia) Past Medical History: HT, hiatal hernia, uternine prolapse, gout, primary hyperparathyroidism, bowel obstruction, mitral valve repair, pulmonary hypertension, heartfailure, HTN, a-fib, dementia, osteoporosis, dementia Nutrition Diagnosis: Swallowing Difficulties Nutrition Etiology: Physiological Causes Nutrition Problem/Etiology/Sym: Swallowing difficulties as realted to mechanical/motor issues as evidenced by dysphagia 2 diet. Energy Requirement: 1250 (MSJ x 1.1x1.2) Protein Requirement: 41 (.8GM/KG) Fluid Requirement: 1250 (1ML/KCAL) Diet Type: Dysphagia Stage 2 Nutrition Intervention: Cont diet as ordered, Encourage intake, HS snack, Be tween meal supplement Additional Diet Restrictions: OFFER NECTAR THICKEN NUTR SUPPLMENTS Diet Comment To [facility]: GROUND MEATS (SOFT FISH OK WHOLE), MASHED VEGGIES- NO WHOLE PIECES Nutrition Monitoring & Eval Nutrition Goals: Eat 75-100% Meal RD Patient Assessment Time: [address] Assessment Type: RD Assessment Patient Nutrition Acuity: 2-Moderate Follow Up Date: Nov 10, 2018 Nutritional Comment: 11/05 Pt admitted s/p pneumonia. Pt on dysphgia 2 diet with thicken liquids. Pt was eating 31% of meals on med FiPathloor. alb low at 2.4, BUN elevated at 43, creatinine elevated at 1.1. Goal is to provide adequate but not excessive protein. Will offer thicken nutr supplment to ensure adequate protein intake. Will cont to monitor and encourage intake. CELIA MILAN Nov 05, 2018 13:06
--- NOTE | 2018-11-05 14:26 | NUR ---
Physical Therapy Impression Pt tolerated ther ex in recliner and sitting upright with back support x 10 reps each. Physical Therapy Goals Patient's Goals
[2018-11-05 16:15] VITALS: BP 110/83
--- NOTE | 2018-11-05 18:48 | Antimicrobial Stewardship ---
Antimicrobial Stewardship Empiricly appropriate: Yes Comment Started on Ceftriaxone and Azithromycin for pneumonia and now currently on Cefdinir 300 mg po bid. Approriate Cultures done: Yes (No growth on Blood cultures) Reviewed for Drug Interaction: Yes Monitored for Toxicities: Yes Determine cumulative duration: 10 days MELISSA FORBES Nov 05, 2018 18:48
--- NOTE | 2018-11-05 19:08 | NUR ---
patient in bed with alarm on. Increased confusion noted. Encouraged to use call light. Will monitor patient closely. All needs met at this time.
[2018-11-05] MEDS: MELATONIN 3 MG TAB PO SCH (20:28)
[2018-11-06] MEDS: ALBUTEROL/IPRATROPIUM 3 ML NEB NEB SCH ×3 (05:44→18:03)
[2018-11-06 08:00] VITALS: BP 118/79
[2018-11-06] MEDS: DOCUSATE SODIUM 100 MG CAP PO SCH ×2 (08:35→20:35)
[2018-11-06] MEDS: POLYETHYLENE GLYCOL 17 GM PKT PO SCH (08:35)
[2018-11-06] MEDS: BUMETANIDE 2 MG TAB PO SCH (08:36)
[2018-11-06] MEDS: CEFDINIR 300 MG CAP PO SCH ×2 (08:36→20:35)
[2018-11-06] MEDS: CARVEDILOL 6.25 MG TAB PO SCH ×2 (08:36→20:35)
[2018-11-06] MEDS: RIVAROXABAN 10 MG TAB PO SCH (08:36)
--- NOTE | 2018-11-06 08:36 | NUR ---
Occupational Therapy Impression Max Ax1 pivot bed<>BSC with RW. Min Ax1 sit<>stand and Mod Ax2 ambulation x10ft with RW. V/c's and physical assist to manage RW. Assistx2 toileting and LB clothing management. Pt very unpredictable with ambulation, as is baseline at home, per daughter. Recommend EZ lift for nursing at this time. Occupational Therapy Goals 1) Pt will be Min A UB/LB dressing. 2) Pt will be SBA toilet task. 3) Pt will Min A grooming/hygiene seated. 4) Pt Sparkle Index of ADLs will improve by two points. Patient's Goal
--- NOTE | 2018-11-06 09:50 | SLP BEDSIDE SWALLOW EVALUATION ---
SPEECH THERAPY ASSESSMENT Bedside dysphagia evaluation Physician: Hospitalist Clinician: Sondra Oliver MS, CCC-SOAP PRESS FEEDER Type of Assessment: Bedside Dysphagia Evaluation Patient: Milagros Portillo : 33, 83yo Evaluation Date: 11/05/2018 Documentation Entry: 11/06/18 BACKGROUND The patient is an 83 year old female admitted to [facility] with pneumonia from 10/30- 11/04/18. She now presents to the [facility] for further rehabilitation due to generalized weakness. An ST consult was requested due to concern for potential swallow dysfunction with lacking dentition and intermittent coughing with thin liquids. Primary Medical Diagnosis: generalized weakness s/p hospital admission for pneumonia PMHx: dementia, CHF, afib Pain Scale (0-10): 0 LOC / Participation: Alert and cooperative Follows instructions: single-level Orientation: oriented to self, caregivers/family members Functional Communication Deficits impact swallow function/safety, or response to therapy: Yes. Pt with moderate to severe cognitive linguistic deficits with baseline dementia diagnosis. Recommend constant supervision during meals to support self-feeding, implementation of compensatory swallow strategies, adherence to diet modification recommendations, and to monitor diet tolerance. DYSPHAGIA Sialorrhea: No Xerostomia: No Hygiene: WFL Supplemental Oxygen Use: Yes. 3 LPM via NC. COPD Dx: No. Pain with Swallow: Denies. Pt seen at the bedside for clinical swallowing assessment. The pt was alert and participatory, oriented to self and caregivers. Son was present for initial portion of evaluation procedures to supplement case history and provide information re: baseline diet. His perception is that the pt consumes softer foods and thin liquids at home. Oromotor exam was unremarkable apart from edentulism. Pt does not wear dentures. Administered PO trials of nectar thick liquids, thin liquids via tsp, cup sip, and straw, pureed solids, and mechanically altered solids. Unable to observe with medication administration due to timing of assessment. Overall, the pt presents with mild oropharyngeal dysphagia characterized by lacking dentition with prolonged mastication and incomplete bolus formation, oral holding of liquids and solids, suspected delay in pharyngeal swallow onset, and suspected premature posterior loss of bolus. Pt also with cognitive dysphagia characterized by decreased task recognition, delayed oral phase initiation, and decreased initiation/persistence for self-feeding. Pt required verbal cues to initiate mastication cycle and to initiate pharyngeal swallow. In the absence of direct instruction, the pt would often swallow whole pieces of mechanically altered solids or hold liquids in oral cavity for 3-4 seconds. Pt exhibited single cough response with thin liquids administered via cup sip due to poor oral control and suspected premature posterior loss of bolus paired with swallow delay. With small bore straw, oral control of bolus appeared to improve. All signs of aspiration were subsequently eliminated. ST ASSESSMENT SUMMARY Aspiration Risk: Mild. Negative prognostic indicators include oral dysphagia, edentulism, cognitive deficits, respiratory compromise, and observed cough response with large sip of thin liquids via cup. PERCY: Level 3, mild dysphagia. Recommend constant supervision with PO intake. Speech Therapy Need ST will continue to analyze swallow status and evolve diet recommendations, compensatory strategies, and aspiration precautions as appropriate. ST will also continue to provide patient and staff education re: aspiration precautions and safe swallow strategies to minimize risk for further respiratory compromise. RECOMMENDATIONS 1.Diet: mechanically altered, thin liquids. 2. Medications: Whole, one at a time, immersed in puree to improve cohesion of multiple textures due to pts reduced oral bolus control. 3. Compensatory Techniques: regular oral hygiene, upright positioning during PO intake (up to chair if possible), cues to consume small bites/sips, one bite/sip at a time, provide small bore straws with liquids, encourage mastication cycle, cue to initiate swallow, check for pocketing/residue after meals 4. Supervision with meals/snacks: constant. POC 1. Caregivers will support patient execution of compensatory swallow and aspiration precautions without need for SOAP PRESS FEEDER assistance during participation in mealtime activities. 2. The patient will safely and efficiently tolerate a mechanically altered diet and thin liquids with max assist for implementation of safe swallow strategies and no s/s of aspiration. Prognosis: good, no previously reported history of aspiration pneumonia, supportive family Thank you for this referral. Sondra Oliver M.S., [facility]-SOAP PRESS FEEDER Speech Therapist [*] TIP
--- NOTE | 2018-11-06 09:53 | NUR ---
ST Encounter Pt seen for dysphagia interventions at morning meal. Analyzed tolerance of mechanically altered diet and thin liquids with max cues for use of aspiration precautions and safe swallow strategies. Pt cont with tendency to hold bolus in oral cavity in the absence of direct cues to initiate swallow. With mechanically altered solids, pt often attempts to swallow whole pieces unless verbally instructed to masticate. All solid trials were tolerated with no overt signs of aspiration. Single cough response noted with thin liquids. Eliminated with reminder to consume small sips, one a time. Continue to rec constant supervision during meals and frequent verbal/tactile cues for adherence to compensations secondary to cognitive dysphagia. 1. Diet: dysphagia II (mechanically altered), thin liquids 2. Medications: whole, immersed in puree, one at a time 3. Supervision: constant supervision at meals 4. Compensations: provide small bore straws with liquids, cue to consume small bites and sips, one at a time, encourage mastication cycles, cue to initiate swallow, check for pocketing/residue after meals, ensure upright positioning (up to chair if possible) during all PO intake.
--- NOTE | 2018-11-06 12:10 | NUR ---
Physical Therapy Impression Pt stood from chair and commode with Mod A initially and Max A by end of treatment. This PT had to maintain Pt in a standing position off commode with nursing pulling gene chair in behind patient by end of short PT session. Pt tolerated ambulation x 15' with RW and Min-Mod A to maintain standing and with constant verbal cueing for standing with improved hip and knee extension. With cueing, Pt is able to improve posture. Pt also performed static sitting without back and UE support for 3 bouts of approximately 1.5 minutes. Pt required constant cueing to maintain posture. Physical Therapy Goals Patient's Goals
--- NOTE | 2018-11-06 14:55 | NUR ---
Pt assisted to bed via sit to stand, bed alarm on r/t recent falls and confusion. 4 rails up per family request and safety. Will monitor.
[2018-11-06 15:17] VITALS: BP 107/73
[2018-11-06] MEDS: MELATONIN 3 MG TAB PO SCH (20:35)
[2018-11-07] MEDS: ALBUTEROL/IPRATROPIUM 3 ML NEB NEB SCH ×2 (05:44→11:22)
[2018-11-07 07:32] VITALS: BP 140/81
[2018-11-07] MEDS: CARVEDILOL 6.25 MG TAB PO SCH ×2 (09:17→21:30)
[2018-11-07] MEDS: RIVAROXABAN 10 MG TAB PO SCH (09:17)
[2018-11-07] MEDS: DOCUSATE SODIUM 100 MG CAP PO SCH ×2 (09:17→21:30)
[2018-11-07] MEDS: BUMETANIDE 2 MG TAB PO SCH (09:18)
[2018-11-07] MEDS: POLYETHYLENE GLYCOL 17 GM PKT PO SCH (09:18)
[2018-11-07] MEDS: CEFDINIR 300 MG CAP PO SCH ×2 (09:18→21:29)
--- NOTE | 2018-11-07 11:28 | NUR ---
to ensure patient's safety, the bed alarm is in place in addition to the tabs unit when OOB r/t to recent fall history and pt's confusion. in addition, bed side rails up x4 per pt family request. hourly rounding taking place to assess and accommodate pt's needs.
--- NOTE | 2018-11-07 14:27 | NUR ---
Restraints 4 side-rails up per family request. Bed alarm and tabs applied due to resident having a history of falling and only being oriented to self. We are rounding hourly.
[2018-11-07 16:05] VITALS: BP 136/83
[2018-11-07] MEDS: MELATONIN 3 MG TAB PO SCH (21:30)
[2018-11-08 07:17] VITALS: BP 117/62
[2018-11-08 07:20] VITALS: BP 131/88
[2018-11-08] MEDS: DOCUSATE SODIUM 100 MG CAP PO SCH ×2 (08:59→21:32)
[2018-11-08] MEDS: CEFDINIR 300 MG CAP PO SCH ×2 (09:00→21:32)
[2018-11-08] MEDS: BUMETANIDE 2 MG TAB PO SCH (09:00)
[2018-11-08] MEDS: CARVEDILOL 6.25 MG TAB PO SCH ×2 (09:00→21:32)
[2018-11-08] MEDS: RIVAROXABAN 10 MG TAB PO SCH (09:00)
[2018-11-08] MEDS: POLYETHYLENE GLYCOL 17 GM PKT PO SCH (09:05)
--- NOTE | 2018-11-08 13:57 | NUR ---
per report, pt attempted to get out of bed w/ bed alarm x4 through screen writer. given pt's orientation to self only and fall hx, bed alarm on when pt alone. reinforcing call light before pt mobilizes. preforming hourly rounding to assess pt's weight. pt's family has requested all 4 bed rails be up when pt in bed. family visiting frequently throughout the day. family appropriate with calling for assistance. not utilizing bed alarm with family in room.
[2018-11-08 14:59] VITALS: BP 119/78
[2018-11-08] MEDS: MELATONIN 3 MG TAB PO SCH (21:31)
[2018-11-09 07:47] VITALS: BP 127/78
[2018-11-09] MEDS: CEFDINIR 300 MG CAP PO SCH ×2 (08:44→20:27)
[2018-11-09] MEDS: POLYETHYLENE GLYCOL 17 GM PKT PO SCH (08:44)
[2018-11-09] MEDS: DOCUSATE SODIUM 100 MG CAP PO SCH ×2 (08:45→20:27)
[2018-11-09] MEDS: RIVAROXABAN 10 MG TAB PO SCH (08:45)
[2018-11-09] MEDS: CARVEDILOL 6.25 MG TAB PO SCH ×2 (08:45→20:26)
[2018-11-09] MEDS: BUMETANIDE 2 MG TAB PO SCH (08:45)
--- NOTE | 2018-11-09 09:20 | Medical Nutrition Therapy ---
Nutrition Anthropometrics Height (Inches): 65.00 Height (Calculated Centimeters: [phone] Weight (Pounds): 109 Weight (Calculated Kilograms): 49.668 BMI: 18.7 Leopoldo Nutrition Score: Probably Inadequate Leopoldo Nutrition Risk Score: 15 Dietary Referral Nutrition Risk Factors: Nutrition Risk Comment: PT HAS BEEN ILL X 1 WEEK AND WAS ADMITTED FOR REPAIR OF FEMORAL HERNIA Physical Findings Physical Appearance: Underweight BMI<19 Skin Appearance Skin Appearance: Edema Edema Location Modifier: Edema Location: Type of Edema: Degree of Edema: Gastrointestinal Symptoms GI Symtoms: Appetite Changes Tube Present: Bowel Sounds: Recent Bowel Pattern: Stool Characteristics: Nutritional Diagnosis Nutritional Risk Acuity 2: Dysphagia, Swallowing Problem Nutritional Risk Acuity 3: Alzheimer's (dementia) Past Medical History: HT, hiatal hernia, uternine prolapse, gout, primary hyperparathyroidism, bowel obstruction, mitral valve repair, pulmonary hypertension, heartfailure, HTN, a-fib, dementia, osteoporosis, dementia Nutrition Diagnosis: Swallowing Difficulties Nutrition Etiology: Physiological Causes Nutrition Problem/Etiology/Sym: Swallowing difficulties as realted to mechanical/motor issues as evidenced by dysphagia 2 diet. Energy Requirement: 1250 (MSJ x 1.1x1.2) Protein Requirement: 41 (.8GM/KG) Fluid Requirement: 1250 (1ML/KCAL) Diet Type: Dysphagia Stage 2 Nutrition Intervention: Cont diet as ordered, Encourage intake, HS snack, Be tween meal supplement Additional Diet Restrictions: OFFER NUTR SUPPLMENTS- PT LIKES PROTEIN MILKSHAKES Diet Comment To RSA: GROUND MEATS (SOFT FISH OK WHOLE), MASHED VEGGIES- NO WHOLE PIECES Nutrition Monitoring & Eval Nutrition Goals: Eat 75-100% Meal Nutrition Follow-Up: Fair Intake RD Patient Assessment Time: [address] Assessment Type: RD Re-Assessment Patient Nutrition Acuity: 2-Moderate Follow Up Date: Nov 17, 2018 Nutritional Comment: 11/05 Pt admitted s/p pneumonia. Pt on dysphgia 2 diet with thicken liquids. Pt was eating 31% of meals on med frloor. alb low at 2.4, BUN elevated at 43, creatinine elevated at 1.1. Goal is to provide adequate but not excessive protein. Will offer thicken nutr supplment to ensure adequate protein intake. Will cont to monitor and encourage intake. BK 11/09 Pt cont on dyspagia diet but no longer thicken liquids. Pt eating 50% of small to regular portions. Will cont nutr supplment to increase kclal and protein intake. BMI is in underweight range. Will cont to monitor and encourage intake. CELIA MILAN Nov 09, 2018 09:20
--- NOTE | 2018-11-09 10:23 | NUR ---
ST Encounter Pt seen for dysphagia interventions at morning meal. Analyzed tolerance of mechanically altered diet and thin liquids with max cues for use of aspiration precautions and safe swallow strategies. Pt cont to require direct cues for mastication and swallow initiation. Oral holding resulted in suspected premature posterior spillage and cough response during/after the swallow x2 w/ thins. Eliminated with cues to reduce bolus size and with direct instruction for swallow initiation. All solid trials were tolerated with no overt signs of aspiration. Pt also seen with med administration in conjunction with RN. Does well with meds provided whole, one at a time, slow rate, immersed in puree. Pt fatigued quickly this date with reduced appetite and request to return to bed. Continue to rec constant supervision during meals and frequent verbal/tactile cues for adherence to compensations secondary to cognitive dysphagia. 1. Diet: dysphagia II (mechanically altered), thin liquids 2. Medications: whole, immersed in puree, one at a time, slow rate 3. Supervision: constant supervision at meals 4. Compensations: provide small bore straws with liquids, cue to consume small bites and sips, one at a time, encourage mastication cycles, cue to initiate swallow, check for pocketing/residue after meals, ensure upright positioning (up to chair if possible) during all PO intake.
--- NOTE | 2018-11-09 10:25 | NUR ---
5-day MDS completed with pt. C: 9, D: 3, E: no concerns, Q: pt plans to be discharged to community and stay with her daughter, no DC referrals made yet, but may be needed. SW will continue to follow for DC plans.
--- NOTE | 2018-11-09 11:06 | NUR ---
Occupational Therapy Impression Independent bed mobility supine to sit. CGA ambulation 5x10ft with RW. Pt requiring v/c's for sequencing safe sit<>stands and occasional Min A to negotiate RW. Pt impulsive with decreased safety awareness during functional mobility. Set-up UB/LB dressing. CGA toileting. Pt progressing well towards goals. Occupational Therapy Goals 1) Pt will be Min A UB/LB dressing. 2) Pt will be SBA toilet task. 3) Pt will Min A grooming/hygiene seated. 4) Pt Sparkle Index of ADLs will improve by two points. Patient's Goal
--- NOTE | 2018-11-09 13:28 | NUR ---
Physical Therapy Impression Pt performed 3 sit<>stand transfers with verbal cueing for safe stand>sit technique and CGA. No carry-over noted. Pt's daughter YOVANA reports she has been working on the same technique at home with no carry-over. Pt ambulated 1 bout of 20' and 2 bouts of 40' with RW and CGA with 1 instance of Min A for loss of balance while turning. Pt's SO2 on 3 L 98%, on 2 L 84% during ambulation. Pt's functional mobility improving, however, Pt will require 24 hour care due to decreased cognition. Physical Therapy Goals Patient's Goals
[2018-11-09 15:55] VITALS: BP 143/87
[2018-11-09] MEDS: MELATONIN 3 MG TAB PO SCH (20:26)
[2018-11-10 08:30] VITALS: BP 114/69
[2018-11-10] MEDS: CARVEDILOL 6.25 MG TAB PO SCH ×2 (08:57→20:27)
[2018-11-10] MEDS: DOCUSATE SODIUM 100 MG CAP PO SCH ×2 (08:57→20:26)
[2018-11-10] MEDS: BUMETANIDE 2 MG TAB PO SCH (08:57)
[2018-11-10] MEDS: RIVAROXABAN 10 MG TAB PO SCH (08:58)
[2018-11-10] MEDS: POLYETHYLENE GLYCOL 17 GM PKT PO SCH (08:58)
--- NOTE | 2018-11-10 09:10 | NUR ---
Physical Therapy Impression PT provided verbal and visual cues for proper sequencing for STS transfers, pt completed 5 STS transfers throughout session and demonstrates no carry over of cues. With cueing, pt demonstrates good safety and completes transfers with CGA. Pt ambulated 15', 25' and 40' with RW and CGA, with seated rest breaks between ambulation bouts. Trial of ambulation on carpeted surface with multiple turns, pt with difficulty managing obstacle negotiation, frequently bumping into objects. Rec 24 hr care at d/c, continue with POC> Physical Therapy Goals Late Entry for eval dated 11/04/18: 1. Pt to tolerate sitting at edge of bed with CGA/SBA and improved trunk stability x 5 minutes. 2. Pt to participate in ther ex for strengthening in reclined and sitting postures with back support x 20 reps each. 3. Pt to be Min assist for supine to/from sit transfers 4. Pt to be Min assist for sit to/from stand transfers 5. Pt to tolerate ambulation x 50' with FWW and CGA 6. Pt to tolerate up/down 4 steps with rail and Min/CGA 7. Pt to tolerate up/down platform step with FWW and Min/CGA Patient's Goals
--- NOTE | 2018-11-10 12:14 | NUR ---
Occupational Therapy Impression CGA ambulation 8x15ft with RW. Incorporating turns to both directions. Pt requiring v/c's for sequencing safe sit<>stands and occasional Min A to negotiate RW. Total assist to manage O2 tubing. Set-up toileting. Set-up LB dressing. Close CGA standing in bathroom for grooming [id number]. Pt progressing well towards OT goals. Occupational Therapy Goals 1) Pt will be Min A UB/LB dressing. 2) Pt will be SBA toilet task. 3) Pt will Min A grooming/hygiene seated. 4) Pt Sparkle Index of ADLs will improve by two points. Patient's Goal
--- NOTE | 2018-11-10 13:38 | NUR ---
Bed alarm a tabs utilized this shift due to patient having a history of falling, not oriented to situation, and being impulsive. Per family request, 4 side-rails are being used. This morning patient was sleeping against 2 side rails with one leg hanging off of bed.
[2018-11-10 16:50] VITALS: BP 101/63
[2018-11-10] MEDS: MELATONIN 3 MG TAB PO SCH (20:27)
--- NOTE | 2018-11-10 21:16 | NUR ---
patient continues to get up without calling. Bed alarm in use.
[2018-11-11 06:22] LABS: PLATELET COUNT, AUTOMATED 181 K/uL (150-450)
[2018-11-11 07:45] VITALS: BP 103/55
[2018-11-11] MEDS: CARVEDILOL 6.25 MG TAB PO SCH ×2 (08:44→20:45)
[2018-11-11] MEDS: BUMETANIDE 2 MG TAB PO SCH (08:44)
[2018-11-11] MEDS: POLYETHYLENE GLYCOL 17 GM PKT PO SCH (08:44)
[2018-11-11] MEDS: DOCUSATE SODIUM 100 MG CAP PO SCH ×2 (08:44→20:45)
[2018-11-11] MEDS: RIVAROXABAN 10 MG TAB PO SCH (08:44)
--- NOTE | 2018-11-11 08:50 | PT ECF NOTE ---
Type of Note: Initial Note Primary Medical Diagnosis: Generalized weakness s/p hospital admission for pneumonia Physical Therapy Evaluation Date: 11/04/18 SUBJECTIVE: Prior Hospitalization: [facility] 10/30/18 thru 11/04/18 Prior Level of Function: Pt resides with daughter in [place], [place]. Pt was independent with dressing, toileting, and feeding. Pt received assist for bathing and all IADLs. She ambulated household distances with a RW. Daughter reports 07/04 supervision for pt provided by family. At baseline, pt had right lateral lean seated and ambulating as well was forward lean when seated. Prior Living Status: Single level house with one platform step reported to access bathroom area and 4 steps with rail to enter home, Living with family and Assist by family Community Services: Support adequate-07/04 supervision provided by family members No known needs Home Accessibility: Stairs with rails All needs on one level Walk-in shower Equipment Owned: Front wheeled walker Tub/shower chair Medical Complications/Past Medical History: Dementia, CHF, AFib Psychosocial Support: Supportive family. Daughter "YOVANA" Son "Froylan" Pain Scale (0-10): No paint reported at time of evaluation. Pt reporting significant fatigue. OBJECTIVE: Strength: B) LE's 3-/5 ROM: (please note any abnormalities) WFL Sensation: (please note any abnormalities) no paresthesias reported Other Neuro findings: Family reports previous R) sided lean and forward lean with sitting prior to this admission Bed Mobility: Mod assist Assistive device: Bed rail, Head of bed elevated Transfers: 1-person assist; Maximum/Total assistance by PT; recommend 2 person with EZ lift with staff for energy conservation and improved functional mobility. Assistive Device: EZ/Patient assisted lift Gait: Not yet tested; unable to safely ambulate at this time Assistive device: Stairs: Not yet tested; unable to safely ambulate at this time Assistive device: Timed Up and Go (>12 seconds indicated increased risk for falls): n/a 10 meter walk test (0.6m/second cannot function independently): n/a Other Objective Measures: unable to complete sit to stand test indep ASSESSMENT: Family indicates that previously this winter, pt was admitted in [place] for B) lung pneumonia that was much worse. Pt may still be weak from that episode as well and was receiving significant assistance in the home. Pt's daughter notes that they do not leave pt alone unless she is reclined, as she tends to lose her balance to the right or forward when sitting upright in a straight back chair. Pt does have to negotiate one platform step with her walker to access the bathroom area and previously was able to do this with SBA/CGA. Pt would benefit from further rehab to address functional safety with ADL's, sitting balance and return to ambulation as well as stair tolerance to allow pt to return home with daughter. Problem List/Current Limitations: Decreased activity meilia, Decreased strength, Decreased coordination, Ataxia, Decreased balance Generalized weakness, Abnormal tonal influence, Poor safety awareness, Memory deficits, Decreased problem solving, Confusion Short Term Goals: 1. Pt to tolerate sitting at edge of bed with CGA/SBA and improved trunk stability x 5 minutes. 2. Pt to participate in ther ex for strengthening in reclined and sitting postures with back support x 20 reps each. 3. Pt to be Min assist for supine to/from sit transfers 4. Pt to be Min assist for sit to/from stand transfers 5. Pt to tolerate ambulation x 50' with FWW and CGA 6. Pt to tolerate up/down 4 steps with rail and Min/CGA 7. Pt to tolerate up/down platform step with FWW and Min/CGA Assisted Goals: Pt to return home with 24 hour care by family Patient Goals: Return to daughter's home Rehabilitation Prognosis: Fair Barriers for Discharge: Pt is currently unable to ambulate; will need to be able to tolerate stairs and ambulation prior to D/C PLAN: The patient will benefit from skilled physical therapy services 5 times per week for 2 weeks including: Therapeutic Exercise Therapeutic Activities, Transfer Training, Gait Training, Stair Training, ADL's, Safety Training, Neuromuscular Re-educ., Pt/Caregiver Training Bed Mobility Thank you for this referral. If you have any questions, concerns, or comments about this report or plan, please contact me at . H. Kasie Munoz, PT, MPT, OMS MTDD
--- NOTE | 2018-11-11 11:05 | NUR ---
ST Encounter Pt seen for dysphagia interventions at morning meal. Pt with increased coughing in response to trials of mech altered solids, no attempt to masticate despite direct instruction. Delayed cough response noted during 50% of attempts. With thin liquids, no signs of aspiration were observed. However, the pt required consistent cueing for appropriate bolus sizes and to support pharyngeal swallow initiation secondary to oral bolus holding. Continue to recommend constant supervision at meals to support cognitive dysphagia. Additionally recommend downgrade to pureed solids. Discussed with RN. Given increased levels of coughing with mech altered solids and ongoing suspicion of pharyngeal dysphagia, completion of an MBSS may be appropriate to r/o aspiration and tailor diet modification recommendations. RN to discuss with the pt's dtr. 1. Diet: dysphagia I (pureed solids), thin liquids 2. Medications: whole, immersed in puree, one at a time, slow rate 3. Supervision: constant supervision at meals 4. Compensations: provide small bore straws with liquids, cue to consume small bites and sips, one at a time, verbally cue to initiate swallow, check for pocketing/residue after meals, ensure upright positioning (up to chair if possible) during all PO intake.
[2018-11-11 15:50] VITALS: BP 117/76
--- NOTE | 2018-11-11 16:33 | Hospitalist Progress Note ---
Physical Exam Vital Signs Date Time Temp Pulse Resp B/P (MAP) Pulse Ox O2 Delivery O2 Flow Rate FiO2 11/11/18 15:50 98.8 86 20 117/76 (90) 96 Nasal Cannula 3.0 Intake and Output 11/11/18 07:00 Intake Total 680 ml Balance 680 ml Intake Oral 680 ml # Voids 3 # Bowel Movements 1 Result Diagram: 11/11/18 0545 11/11/1845 Assessment and Plan Problems: (1) Generalized weakness Status: Acute Assessment & Plan: The patient was transferred from the medical floor to [facility] after an admission for pneumonia. She will receive ongoing rehabilitation with PT and OT. (2) Pneumonia Status: Acute Assessment & Plan: It appeared on admission that she had an acute, bilateral, patchy pneumonia. The infiltrates were unusual in appearance and were concerning for the potential of malignancy. She was placed on IV antibiotics, supplemental oxygen, and respiratory treatments (if needed). CT scan showed pneumonia without concern for malignancy. She was transferred to [facility] for rehabilitation. (3) Dysphagia Status: Chronic Assessment & Plan: The patient has been evaluated by [employer]. Her diet has been mod ified. She may need a swallowing study. (4) Atrial fibrillation Status: Chronic Assessment & Plan: She had been managed with carvedilol, diltiazem, and Xarelto. Her diltiazem was stopped (due to decreased EF) and her carvedilol dose was increased to 6.25mg BID. Watch closely. (5) Dementia Status: Chronic Assessment & Plan: She has significant underlying dementia and she did have some acute delirium on admission. Her acute infectious process was treated and she improved. (6) Heart failure with reduced ejection fraction Status: Chronic Assessment & Plan: Will need to watch volume status closely. She did receive a dose of IV Bumex in the ER prior to admission and is now back on daily oral Bumex. Diltiazem she has used for her a-fib was stopped as above, and her carvedilol was increased. Time Spent on Plan of Care: < 30 min REG AKERS MD Nov 11, 2018 16:32
[2018-11-11] MEDS: MELATONIN 3 MG TAB PO SCH (20:45)
--- NOTE | 2018-11-12 07:52 | NUR ---
Occupational Therapy Impression Independent bed mobility in/out with HOB flat and no rail. CGA ambulation x40ft, x20ft, x15ft, x10ft with RW. Total A for O2 tubing management. SBA with v/c's toileting. Family present for tx session. Reports pt is near baseline for safety. Daughter recognizes need for 24/7 supervision in order to provide safety cues. After discussion with pt and family, plan to address stairs, bathing, and improve activity tolerance prior to discharge home next week. Occupational Therapy Goals 1) Pt will be Min A UB/LB dressing. 2) Pt will be SBA toilet task. 3) Pt will Min A grooming/hygiene seated. 4) Pt Sparkle Index of ADLs will improve by two points. Patient's Goal
[2018-11-12 08:20] VITALS: BP 91/61
[2018-11-12 08:53] VITALS: BP 104/57
[2018-11-12] MEDS: DOCUSATE SODIUM 100 MG CAP PO SCH ×2 (08:56→20:07)
[2018-11-12] MEDS: CARVEDILOL 6.25 MG TAB PO SCH ×2 (08:56→20:07)
[2018-11-12] MEDS: BUMETANIDE 2 MG TAB PO SCH (08:56)
[2018-11-12] MEDS: POLYETHYLENE GLYCOL 17 GM PKT PO SCH (08:56)
[2018-11-12] MEDS: RIVAROXABAN 10 MG TAB PO SCH (08:57)
--- NOTE | 2018-11-12 10:25 | NUR ---
ST Encounter Brief visit to floor to discuss diet tolerance and observe medication admin with RN. Reviewed recs to immerse medications in puree, one at a time. Pt tolerating pureed textures without incident. Continue to recommend constant supervision at meals to support cognitive dysphagia. Additionally discussed MBSS recommendation. Physician, family in agreement to proceed with study. Scheduled for 11/16/18 at 1pm. 1. Diet: dysphagia I (pureed solids), thin liquids 2. Medications: whole, immersed in puree, one at a time, slow rate 3. Supervision: constant supervision at meals 4. Compensations: provide small bore straws with liquids, cue to consume small bites and sips, one at a time, verbally cue to initiate swallow, check for pocketing/residue after meals, ensure upright positioning (up to chair if possible) during all PO intake. 5. MBSS scheduled for 11/16/18 at 1pm with radiology.
--- NOTE | 2018-11-12 11:03 | NUR ---
Occupational Therapy Impression Pt appearing more fatigued this date. VSS throughout. Independent bed mobility supine to sit. Close SBA ambulation 2x45ft with RW. Max A bathing with good tolerance for sit/standing. Set-up UB/LB dressing. Pt progressing well towards OT goals. Occupational Therapy Goals 1) Pt will be Min A UB/LB dressing. 2) Pt will be SBA toilet task. 3) Pt will Min A grooming/hygiene seated. 4) Pt Sparkle Index of ADLs will improve by two points. Patient's Goal
--- NOTE | 2018-11-12 12:35 | NUR ---
Physical Therapy Impression Late Entry for visit completed and billed on 11/11/18.Pt tolerated ambulation first to BR and negotiated walker for 180 turn in narrow space, followed by ambulation to dining room table for noon meal. Physical Therapy Goals Late Entry for eval dated 11/04/18: 1. Pt to tolerate sitting at edge of bed with CGA/SBA and improved trunk stability x 5 minutes. 2. Pt to participate in ther ex for strengthening in reclined and sitting postures with back support x 20 reps each. 3. Pt to be Min assist for supine to/from sit transfers 4. Pt to be Min assist for sit to/from stand transfers 5. Pt to tolerate ambulation x 50' with FWW and CGA 6. Pt to tolerate up/down 4 steps with rail and Min/CGA 7. Pt to tolerate up/down platform step with FWW and Min/CGA Patient's Goals
--- NOTE | 2018-11-12 12:36 | NUR ---
Physical Therapy Impression Pt tolerated ambulation of 70'x 2 with FWW and O2. Pt continues to require SBA/CGA for safety due to narrow base of support and difficulty with fatigue. Physical Therapy Goals Late Entry for eval dated 11/04/18: 1. Pt to tolerate sitting at edge of bed with CGA/SBA and improved trunk stability x 5 minutes. 2. Pt to participate in ther ex for strengthening in reclined and sitting postures with back support x 20 reps each. 3. Pt to be Min assist for supine to/from sit transfers 4. Pt to be Min assist for sit to/from stand transfers 5. Pt to tolerate ambulation x 50' with FWW and CGA 6. Pt to tolerate up/down 4 steps with rail and Min/CGA 7. Pt to tolerate up/down platform step with FWW and Min/CGA Patient's Goals
--- NOTE | 2018-11-12 14:21 | NUR ---
Use of alarms and 4 side-rails Utilizing bed alarms and tabs on patient due to lack awareness to situation, hx of falling, and hx of impulsive behavior. 4 side rails up due to family request and patient regularly sleeping very close to edge of bed. We have been rounding hourly to make sure patients needs are met. Patient has used call-light appropriately once this shift.
[2018-11-12 16:20] VITALS: BP 127/84
[2018-11-12] MEDS: MELATONIN 3 MG TAB PO SCH (20:07)
[2018-11-13] MEDS: POLYETHYLENE GLYCOL 17 GM PKT PO SCH (08:55)
[2018-11-13] MEDS: RIVAROXABAN 10 MG TAB PO SCH (08:55)
[2018-11-13] MEDS: BUMETANIDE 2 MG TAB PO SCH (08:55)
[2018-11-13] MEDS: CARVEDILOL 6.25 MG TAB PO SCH ×2 (08:55→20:28)
[2018-11-13] MEDS: DOCUSATE SODIUM 100 MG CAP PO SCH ×2 (08:55→20:28)
--- NOTE | 2018-11-13 12:49 | NUR ---
Physical Therapy Impression Overall, Pt's strength and tolerance to activity is improved. Not notable improvement in her core strength and ability to maintain appropriate posture for longer periods of time. Pt will require 24 hour assistance due to decreased cognition. Physical Therapy Goals Late Entry for eval dated 11/04/18: 1. Pt to tolerate sitting at edge of bed with CGA/SBA and improved trunk stability x 5 minutes. 2. Pt to participate in ther ex for strengthening in reclined and sitting postures with back support x 20 reps each. 3. Pt to be Min assist for supine to/from sit transfers 4. Pt to be Min assist for sit to/from stand transfers 5. Pt to tolerate ambulation x 50' with FWW and CGA 6. Pt to tolerate up/down 4 steps with rail and Min/CGA 7. Pt to tolerate up/down platform step with FWW and Min/CGA Patient's Goals
[2018-11-13 13:21] VITALS: BP 98/68
[2018-11-13 16:35] VITALS: BP 112/65
[2018-11-13 20:28] VITALS: BP 103/66
[2018-11-13] MEDS: MELATONIN 3 MG TAB PO SCH (20:29)
--- NOTE | 2018-11-13 22:50 | NUR ---
Bed alarms and TABs not used during this shift. Patient has demonstrated ability to press call light when she needs something. 4 side rails up in bed per family request. Patient will cling to edge of bed.
[2018-11-14] VITALS (19 sets, daily range): BP systolic 80–123; BP diastolic 47–75
--- NOTE | 2018-11-14 04:23 | NUR ---
Pt Fall: Per previous report, pt had been using call light appropriately and did not attempt to exit bed without assistance. No bed alarm had been in use up until incidence. At about 0355, nurse checked pt's brief. Pt denied any needs and rolled onto her side to continue to sleep. At approximately 0405, pt was discovered on floor in room right outside of her bathroom. She was sitting up with feet in front of her. She denied any pain. No injuries noted upon exam. Pt then assisted to br via gaitbelt and walker, where she voided. Vitals taken- still denied any pain and no change from baseline. Bed alarm now in place. Will continue to monitor closely and educate pt on importance of call light.
[2018-11-14] MEDS: RIVAROXABAN 10 MG TAB PO SCH (08:42)
[2018-11-14] MEDS: CARVEDILOL 6.25 MG TAB PO SCH ×2 (08:42→20:21)
[2018-11-14] MEDS: DOCUSATE SODIUM 100 MG CAP PO SCH ×2 (08:42→20:21)
[2018-11-14] MEDS: BUMETANIDE 2 MG TAB PO SCH (08:42)
[2018-11-14] MEDS: POLYETHYLENE GLYCOL 17 GM PKT PO SCH (08:42)
--- NOTE | 2018-11-14 10:06 | NUR ---
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 Pt denies pain r/t fall, neuro checks in progress with no changes. Pt is alert to self and place. Will continue to monitor.
[2018-11-14] MEDS: MELATONIN 3 MG TAB PO SCH (20:21)
[2018-11-15] VITALS: BP 118/78
[2018-11-15 07:40] VITALS: BP 129/79
[2018-11-15] MEDS: CARVEDILOL 6.25 MG TAB PO SCH ×2 (08:58→20:29)
[2018-11-15] MEDS: POLYETHYLENE GLYCOL 17 GM PKT PO SCH (08:58)
[2018-11-15] MEDS: BUMETANIDE 2 MG TAB PO SCH (08:58)
[2018-11-15] MEDS: DOCUSATE SODIUM 100 MG CAP PO SCH ×2 (09:00→20:29)
[2018-11-15] MEDS: RIVAROXABAN 10 MG TAB PO SCH (09:02)
[2018-11-15 14:40] VITALS: BP 83/57
[2018-11-15 20:04] VITALS: BP 96/64
[2018-11-15] MEDS: MELATONIN 3 MG TAB PO SCH (20:29)
[2018-11-16 07:40] VITALS: BP 122/79
[2018-11-16] MEDS: DOCUSATE SODIUM 100 MG CAP PO SCH ×2 (08:46→20:38)
[2018-11-16] MEDS: CARVEDILOL 6.25 MG TAB PO SCH ×2 (08:46→20:38)
[2018-11-16] MEDS: RIVAROXABAN 10 MG TAB PO SCH (08:46)
[2018-11-16] MEDS: BUMETANIDE 2 MG TAB PO SCH (08:46)
[2018-11-16] MEDS: POLYETHYLENE GLYCOL 17 GM PKT PO SCH (08:46)
--- NOTE | 2018-11-16 13:30 | NUR ---
ST Encounter MBSS complete. Please see full report for detailed info. Results and recs were discussed with the family immediately following MBSS completion. 1. Diet: upgrade to dysphagia II mech altered solids), thin liquids 2. Medications: whole, immersed in puree, one at a time, slow rate 3. Supervision: constant supervision at meals 2/2 cog deficits 4. Compensations: provide small bore straws with liquids, cue to consume small bites and sips / one at a time, verbally cue to initiate swallow, ensure upright positioning (up to chair if possible) during all PO intake. Consider purchasing volume controlled cup/straw to reduce bolus size with consumption of thin liquids.
--- NOTE | 2018-11-16 14:14 | Medical Nutrition Therapy ---
Nutrition Anthropometrics Height (Inches): 65.00 Height (Calculated Centimeters: 165.310779 Weight (Pounds): 107 Weight (Calculated Kilograms): 48.702 BMI: 18.7 Leopoldo Nutrition Score: Probably Inadequate Leopoldo Nutrition Risk Score: 16 Dietary Referral Nutrition Risk Factors: Nutrition Risk Comment: PT HAS BEEN ILL X 1 WEEK AND WAS ADMITTED FOR REPAIR OF FEMORAL HERNIA Nutritional Diagnosis Nutritional Risk Acuity 2: Dysphagia, Swallowing Problem Nutritional Risk Acuity 3: Alzheimer's (dementia) Past Medical History: HT, hiatal hernia, uternine prolapse, gout, primary hyperparathyroidism, bowel obstruction, mitral valve repair, pulmonary hypertension, heartfailure, HTN, a-fib, dementia, osteoporosis, dementia Nutrition Diagnosis: Swallowing Difficulties Nutrition Etiology: Physiological Causes Nutrition Problem/Etiology/Sym: Swallowing difficulties as realted to mechanical/motor issues as evidenced by dysphagia 2 diet. Energy Requirement: 1250 (MSJ x 1.1x1.2) Protein Requirement: 41 (.8GM/KG) Fluid Requirement: 1250 (1ML/KCAL) Diet Type: Dysphagia Stage 2 Nutrition Intervention: Cont diet as ordered, Encourage intake, HS snack, Between meal supplement Additional Diet Restrictions: OFFER NUTR SUPPLMENTS- PT LIKES PROTEIN MILKSHAKES Diet Comment To RSA: GROUND MEATS (SOFT FISH OK WHOLE), MASHED VEGGIES- NO WHOLE PIECES Nutrition Monitoring & Eval Nutrition Goals: Eat 75-100% Meal Nutrition Follow-Up: Fair Intake RD Patient Assessment Time: [address] Assessment Type: RD Re-Assessment Patient Nutrition Acuity: 2-Moderate Follow Up Date: Nov 24, 2018 Nutritional Comment: 11/05 Pt admitted s/p pneumonia. Pt on dysphgia 2 diet with thicken liquids. Pt was eating 31% of meals on [employer] frloor. alb low at 2.4, BUN elevated at 43, creatinine elevated at 1.1. Goal is to provide adequate but not excessive protein. Will offer thicken nutr supplment to ensure adequate protein intake. Will cont to monitor and encourage intake. BK 11/09 Pt cont on dyspagia diet but no longer thicken liquids. Pt eating 50% of small to regular portions. Will cont nutr supplment to increase kcal and protein intake. BMI is in underweight range. Will cont to monitor and encourage intake. BK 11/16 diet changed to pureed with thin liquids. Pt eating 1005 of small to regular portions. Nursing has not reporting choking in past 3 days. BMI cont in underwt range but wt is stable. Will cont to monitor and encourage intake. CELIA MILAN Nov 16, 2018 14:14
--- NOTE | 2018-11-16 14:18 | NUR ---
14-day MDS completed. C: 9, D: 00, E: no concerns, Q: pt expects to be discharged to community, referrals made for HHS at [facility].
--- NOTE | 2018-11-16 15:54 | NUR ---
Physical Therapy Impression Pt ascended/descended 4 stairs x2. With initial 4 stairs Pt attempted to ascend [id number] during which she ascended with her R LE and required Min A to prevent fall. Pt able to ascend with L LE and CGA. During second attempt, Pt instructed to go "one step at a time" and lead with L LE which significantly increase safety with stair negotiation. Pt will require verbal cueing and CGA/Min A to safely ascend/descend stairs at time of DC. Pt to perform platform step with RW next visit. Physical Therapy Goals Late Entry for eval dated 11/04/18: 1. Pt to tolerate sitting at edge of bed with CGA/SBA and improved trunk stability x 5 minutes. 2. Pt to participate in ther ex for strengthening in reclined and sitting postures with back support x 20 reps each. 3. Pt to be Min assist for supine to/from sit transfers 4. Pt to be Min assist for sit to/from stand transfers 5. Pt to tolerate ambulation x 50' with FWW and CGA 6. Pt to tolerate up/down 4 steps with rail and Min/CGA 7. Pt to tolerate up/down platform step with FWW and Min/CGA Patient's Goals
[2018-11-16 16:10] VITALS: BP 109/67
--- NOTE | 2018-11-16 16:26 | NUR ---
Tabs alarm Pt up in chair, call light within reach. Tabs alarm in place r/t recent fall. Pt educated on use of call light before getting up.
--- NOTE | 2018-11-16 17:54 | RADIOLOGY IMAGING REPORT ---
FACILITY: [facility] [place] PATIENT NAME: Milagros Portillo : 1935 MR: [id number] V: [id number] EXAM DATE: ORDERING PHYSICIAN: MAYDA GARNER TECHNOLOGIST: Location: [facility] Patient: Milagros Portillo : 1935 Visit/Account:[id number] Date of Sevice: 11/16/2018 Exam type: ESOPH VIDEO SWALLOWING History: Dysphagia Comparison: None. Findings: The modified barium swallow was performed by the speech pathologist. Fluoroscopic assistance was pro vided. Patient received thin barium a barium tablet and pureed and soft solid foods. There is moder ate oral dysphagia, mild frontal dysphasia and trace laryngeal penetration with thin liquids. Please see the speech pathologist report for complete details. The fluoroscopy dose area product was 257.9 6 micro-Rush per meter squared IMPRESSION: 1. As above Report Dictated By: Laverne Gutierrez MD at 11/16/2018 5:49 PM Report E-Signed By: Laverne Gutierrez MD at 11/16/2018 5:51 PM WSN:[email or web address]
[2018-11-16] MEDS: MELATONIN 3 MG TAB PO SCH (20:38)
[2018-11-17 07:40] VITALS: BP 112/63
[2018-11-17] MEDS: RIVAROXABAN 10 MG TAB PO SCH (08:45)
[2018-11-17] MEDS: CARVEDILOL 6.25 MG TAB PO SCH ×2 (08:45→20:51)
[2018-11-17] MEDS: BUMETANIDE 2 MG TAB PO SCH (08:45)
[2018-11-17] MEDS: DOCUSATE SODIUM 100 MG CAP PO SCH ×2 (08:45→20:51)
[2018-11-17] MEDS: POLYETHYLENE GLYCOL 17 GM PKT PO SCH (08:46)
--- NOTE | 2018-11-17 09:52 | NUR ---
Physical Therapy Impression Pt provided demonstration and step by step verbal cues for asc/desc platform step with RW to simulate home environment. Emphasis placed on ascent with L) LE. Pt required verbal cues for all stair negotiation, but was able to asc/desc platform step with CGA and good tolerance overall.Pt is likely nearing baseline level of functional mobility, rec that pt have 24 hr assistance and care upon d/c home. Physical Therapy Goals Late Entry for eval dated 11/04/18: 1. Pt to tolerate sitting at edge of bed with CGA/SBA and improved trunk stability x 5 minutes. 2. Pt to participate in ther ex for strengthening in reclined and sitting postures with back support x 20 reps each. 3. Pt to be Min assist for supine to/from sit transfers 4. Pt to be Min assist for sit to/from stand transfers 5. Pt to tolerate ambulation x 50' with FWW and CGA 6. Pt to tolerate up/down 4 steps with rail and Min/CGA 7. Pt to tolerate up/down platform step with FWW and Min/CGA Patient's Goals
--- NOTE | 2018-11-17 11:37 | SLP MODIFIED BARIUM SWALLOW ---
MODIFIED BARIUM SWALLOW STUDY REPORT Provider: Hospitalist Clinician: Sondra Oliver MS, CCC-COVER MARKER Type of Assessment: MBSS Patient: Milagros Portillo : [birth year], 83yo Evaluation Date: 11/16/2018 BACKGROUND The patient is an 83-year-old female who presents for a modified barium swallow study (MBSS) due to elevated signs of aspiration during PO intake. The pt has been participating in ST interventions in the ECF at [facility] since 11/06/18. ASSESSMENT Diagnosis: generalized weakness; dysphagia Past Medical Hx: dementia, CHF, afib Pain Scale (0-10): 0 Orientation: A&O to self, caregivers/family members Sialorrhea: no Xerostomia: no Hygiene: no Supplemental Oxygen Use: yes; 3LPM via NC COPD Dx: No. Pain with Swallow: denies Oral mechanism examination: Edentulous. Does not wear dentures during PO intake. Overall impression: moderate oral and mild pharyngeal with suspected esophageal dysphagiaa. In conjunction with radiology, the pt was seated in the lateral view and analyzed with trials of the following consistencies: thin liquids via cup and straw sip, pureed solids, mechanically altered solids, and a 1cm barium pill immersed in puree. Pt presented with moderate oral phase dysphagia characterized by disorganized mastication, incomplete bolus breakdown, and poor bolus cohesion with mechanically altered solids. Although bolus breakdown was incomplete and mastication lacked coordination, the pt was able to clear the oral cavity with 1-2 swallows and safely clear contents through the pharynx. Pt exhibited good bolus control with trials of thin liquids. Cognitive deficits resulted in oral bolus holding for 6-8 seconds prior to initiating pharyngeal phase with thin liquids and pureed solids. Pt often required direct verbal instruction for swallow initiation. Pharyngeally, mild deficits were characterized by delayed swallow onset varying to the level of the valleculae with trials of solids (puree and mechanically altered), and to the level of the pyriforms with trials of thin liquids. With solid trials, material often remained in the vallecular space for 1-2 seconds prior to swallow onset. Thin liquid material penetrated the airway before the swallow as a result of delayed onset. Quantity of penetrated material correlated with size of bolus, placing the pt at elevated risk for aspirating large sips. Although delayed, pt able to achieve complete closure of the laryngeal vestibule with consistent ejection of penetrated material from the airway without residue (PAS 2). A posterior prominence was noted against contrast at the cricopharyngeus. This resulted in mild residue in the pyriform sinus with thin liquid trials. Residue was mild, and was not observed with solid textures. During completion of an esophageal sweep with barium pill administration, contents passed to the stomach through the LES without obstruction or delay. Penetration/Aspiration Scale (PAS)*: Thin liquids: Score of 2, Material enters the airway (briefly), remains above the vocal folds, and is ejected from the airway. All other consistencies: Score of 1, Material does not enter airway *(Rosenbek et al. 1996) SUMMARY and RECOMMENDATIONS Aspiration Risk: Mild. Negative prognostic indicators include cognitive deficits with oral bolus holding and delayed initiation of pharyngeal swallow resulting in pre-swallow penetration. Dysphagia Outcome Severity Scale: Level 3; recommend constant supervision with meals secondary to cognitive deficits. Speech Therapy Need: ST will continue to provide caregiver and staff education re: aspiration precautions and safe swallow strategies to minimize risk for further respiratory compromise. MBSS results and recommendations were discussed with the patients family and RN immediately following study completion. RECOMMENDATIONS 1. Diet: mechanically altered, thin liquids. 2. Medications: Whole, one at a time, immersed in puree to improve cohesion of multiple textures due to pts reduced oral bolus control. 3. Compensatory Techniques: regular oral hygiene, upright positioning during PO intake (up to chair if possible), cues to consume small bites/sips, one bite/sip at a time, encourage mastication cycle, cue to initiate swallow, consider purchasing volume controlled cup/straw to limit size of bolus with thin liquids. 4. Supervision with meals/snacks: constant. POC 1. Caregivers will support patient execution of compensatory swallow and aspiration precautions without need for COVER MARKER assistance during participation in mealtime activities. 2.The patient will safely and efficiently tolerate a mechanically altered diet and thin liquids with max assist for implementation of safe swallow strategies and no s/s of aspiration. Prognosis: good, supportive family Please call [phone] with any questions or concerns. Respectfully, Sondra Oliver M.S., [facility]-COVER MARKER Speech Therapist [*] ITP
--- NOTE | 2018-11-17 11:58 | NUR ---
Occupational Therapy Impression Pt alert and agreeable to OT tx. Requesting to use toilet upon OT arrival. Incontinent. SBA ambulation with RW. Total A for O2 tubing management, poor safety awareness and sequencing. No carryover from tx to tx. SBA toileting including changing LB clothing. Independent grooming standing sink front. Pt nearing OT goals. Rec d/c home with HH services and continued 24/7 assist from family. Occupational Therapy Goals 1) Pt will be Min A UB/LB dressing. 2) Pt will be SBA toilet task. 3) Pt will Min A grooming/hygiene seated. 4) Pt Sparkle Index of ADLs will improve by two points. Patient's Goal
--- NOTE | 2018-11-17 14:29 | NUR ---
ST Encounter ST goals have been met. Pt is tolerating a mechanically altered diet and thin liquids with max to mod assist via trained caregivers. Family has demonstrated independent comprehension of information re: diet modification recs, aspiration precautions, and compensatory swallow strategies. Dtr ordered volume controlled cup to modify bolus sizes during consumption of thin liquids to further minimize risk for aspiration and compensate for cognitive dysphagia. Provided the pt's family with final review of SIEB[employer] CRM DEVELOPER recommendations, including written handouts. ST to d/c skilled services at this time. Please do not hesitate to contact with further questions or concerns. 1. Diet: mech altered solids, thin liquids 2. Medications: whole, immersed in puree, one at a time, slow rate 3. Supervision: constant supervision at meals 2/2 cog deficits 4. Compensations: cue to consume small bites and sips / one at a time, verbally cue to initiate swallow and to masticate solid textures, ensure upright positioning (up to chair if possible) during all PO intake, perform regular oral hygiene (at least 2x each day). Consider purchasing volume controlled cup/straw to reduce bolus size with consumption of thin liquids.
[2018-11-17 15:55] VITALS: BP 125/71
--- NOTE | 2018-11-17 16:07 | PT ECF NOTE ---
Type of Note: Discharge Summary Primary Medical Diagnosis: Generalized weakness s/p hospital admission for pneumonia Physical Therapy Evaluation Date: 11/04/18 SUBJECTIVE: Prior Hospitalization: [facility] 10/30/18 thru 11/04/18 Prior Level of Function: Pt resides with daughter in [place], [place]. Pt was independent with dressing, toileting, and feeding. Pt received assist for bathing and all IADLs. She ambulated household distances with a RW. Daughter reports 07/04 supervision for pt provided by family. At baseline, pt had right lateral lean seated and ambulating as well was forward lean when seated. Prior Living Status: Single level house with one platform step reported to access bathroom area and 4 steps with rail to enter home, Living with family and Assist by family Community Services: Support adequate-07/04 supervision provided by family members No known needs Home Accessibility: Stairs with rails All needs on one level Walk-in shower Equipment Owned: Front wheeled walker Tub/shower chair Medical Complications/Past Medical History: Dementia, CHF, AFib Psychosocial Support: Supportive family. Daughter "YOVANA" Son "Froylan" Pain Scale (0-10): No pain reported OBJECTIVE: Strength: B) LE's 3-/5 ROM: (please note any abnormalities) WFL Sensation: (please note any abnormalities) no paresthesias reported Other Neuro findings: Family reports previous R) sided lean and forward lean with sitting prior to this admission Bed Mobility: I) per OT notes Transfers: CGA/SBA with RW Gait: 140' with RW Stairs: CGA with RW, emphasis on L) LE ascending ASSESSMENT: The patient is at or near baseline level of functional mobility and has met PT goals and is therefore safe to d/c home from a mobility standpoint when medically appropriate. Due to safety and cognitive concerns it is recommended that the patient have assistance 24hrs of the day. The pt's family is prepared to arrange this type of care. Rec [facility] PT upon d/c. Problem List/Current Limitations: Decreased activity emilia, Decreased strength, Decreased coordination, Ataxia, Decreased balance Generalized weakness, Abnormal tonal influence, Poor safety awareness, Memory deficits, Decreased problem solving, Confusion Short Term Goals: 1. Pt to tolerate sitting at edge of bed with CGA/SBA and improved trunk stability x 5 minutes. 2. Pt to participate in ther ex for strengthening in reclined and sitting postures with back support x 20 reps each. 3. Pt to be Min assist for supine to/from sit transfers 4. Pt to be Min assist for sit to/from stand transfers 5. Pt to tolerate ambulation x 50' with FWW and CGA 6. Pt to tolerate up/down 4 steps with rail and Min/CGA 7. Pt to tolerate up/down platform step with FWW and Min/CGA Motion Picture Set Up Worker Goals: Pt to return home with 24 hour care by family Patient Goals: Return to daughter's home Rehabilitation Prognosis: Fair PLAN: The patient will d/c home with family and 24 hr care and [facility] services Thank you for this referral. If you have any questions, concerns, or comments about this report or plan, please contact me at . Kiki Davila, PT, DPT MTDD
--- NOTE | 2018-11-17 16:08 | NUR ---
PHYSICAL THERAPY INFORMATION TRANSFER SHEET BED MOBILITY: Independent TRANSFERS: Standby Assistance GAIT: 80 ' with O2 RW and CGA Weightbearing Status: STAIRS: 4 with CGA -- pt must lead with L) LE ascending or she requires min-modA to ascend stairs EXERCISES: Verbalizes Needs: Yes Understands Directions Yes- but pleasantly confused Cooperative: Yes Family Teaching: Yes Physical Therapy Comment:
--- NOTE | 2018-11-17 16:32 | NUR ---
OCCUPATIONAL THERAPY Dressing Assistance: Set-up Dressing Aid Required: None Bathing Assistance: Moderate-Maximum assistance Bathing Equipment: Shower Chair Home Assessment: Not Completed Feeding Assistance: Set-up Feeding Specialized Equipment: None Toilet Use: Standby Assistance. Occasional increased assist for gael-care thoroughness due to incontinence Verbalizes Needs: Yes Understands Precautions: Yes Cooperative: Yes Family Teaching: Yes Occupational Therapy Comment:
--- NOTE | 2018-11-17 16:41 | OT ECF NOTE ---
Type of Note: Discharge Note Primary Medical Diagnosis: Generalized weakness s/p hospital admission for pneumonia Occupational Therapy Evaluation Date: 11/04/18 SUBJECTIVE: Prior Hospitalization: H 10/30/18 thru 11/04/18 Prior Level of Function: Pt resides with daughter in [place], [place]. Pt was independent with dressing, toileting, and feeding. Pt received assist for bathing and all IADLs. She ambulated household distances with a RW. Daughter reports 07/04 supervision for pt provided by family. At baseline, pt had right lateral lean seated and ambulating as well was forward lean when seated. Prior Living Status: Single level house Living with family Assist by family Community Services: Support adequate-07/04 supervision provided by family members No known needs Home Accessibility: Stairs with rails All needs on one level Walk-in shower Equipment Owned: Front wheeled walker Tub/shower chair Baby monitors for 07/04 supervision Medical Complications/Past Medical History: Dementia, CHF, AFib Psychosocial Support: Supportive family. Daughter "CJ" Son "Froylan" Pain Scale (0-10): No paint reported at time of discharge. Pt reporting significant fatigue. 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 Occasional increased assist for thoroughness. Grooming/hygiene: Assistive device: Standing Grooming ability: SBA Bathing: Assistive device: Shower chair Bathing ability: Mod-Max A. Good tolerance standing [id number] during bathing. Standardized Assessment: Sparkle Index of Activities of Daily Livin/20 upon initial evaluation (11/04/18). upon discharge (11/17/18). ASSESSMENT: Milagros presented to [facility] with decreased activity tolerance and independence for ADLs. At [facility], she was independent with toileting/dressing and ambulating household distances with a RW. She has met all skilled OT goals. Family has been present for tx session and reporting pt is at baseline. Pt and family with no further questions/concerns regarding discharge home tomorrow. Short Term Goals: 1) Pt will be Min A UB/LB dressing. GOAL MET 2) Pt will be SBA toilet task. GOAL MET 3) Pt will Min A grooming/hygiene seated. GOAL MET 4) Pt Sparkle Index of ADLs will improve by two points.GOAL MET Production Planning Supervisor Goals: Return home with continued 24/7 assist from family and services Patient Goals: Return home Rehabilitation Prognosis: Fair Barriers to Discharge: Cognition, Decreased independence at baseline PLAN: The patient will discharge home with HomeHealth services and 24/7 supervision provided by family and [facility]. Thank you for this referral. If you have any questions, concerns, or comments about this report or plan, please contact me at . Meli Oliver MS, OTR/L Occupational Therapist TIP
[2018-11-17] MEDS: MELATONIN 3 MG TAB PO SCH (20:51)
[2018-11-18 06:37] LABS: PLATELET COUNT, AUTOMATED 208 K/uL (150-450)
[2018-11-18 07:35] VITALS: BP 120/60
--- NOTE | 2018-11-18 08:58 | NUR ---
DC MDS completed with pt. C: 08, D: 00, E: no concerns, Q: HHS arranged through [facility], no other DC needs reported.
[2018-11-18] MEDS: DOCUSATE SODIUM 100 MG CAP PO SCH (09:22)
[2018-11-18] MEDS: POLYETHYLENE GLYCOL 17 GM PKT PO SCH (09:22)
[2018-11-18] MEDS: BUMETANIDE 2 MG TAB PO SCH (09:22)
[2018-11-18] MEDS: CARVEDILOL 6.25 MG TAB PO SCH (09:22)
[2018-11-18] MEDS: RIVAROXABAN 10 MG TAB PO SCH (09:23)
--- NOTE | 2018-11-18 14:21 | Hospitalist Depart ---
Discharge Summary Reason for Hosp/Final Diag: (1) Generalized weakness Status: Acute Hospital Course & Plan: The patient was transferred from the medical floor to [facility] after an admission for pneumonia. She received ongoing rehabilitation with PT and OT. She will continue therapy through Home Health upon discharge. (2) Pneumonia Status: Acute Hospital Course & Plan: It appeared on admission that she had an acute, bilateral, patchy pneumonia. The infiltrates were unusual in appearance and were concerning for the potential of malignancy. She was placed on IV antibiotics, supplemental oxygen, and respiratory treatments. CT scan showed pneumonia witho ut concern for malignancy. She was transferred to [facility] for rehabilitation and improved. (3) Dysphagia Status: Chronic Hospital Course & Plan: The patient was evaluated by [employer]. Her diet was modified. She did have a swallowing study. [employer] made the following recommendations: 1. Diet: mechanically altered, thin liquids. 2. Medications: Whole, one at a time, immersed in puree to improve cohesion of multiple textures due to pts reduced oral bolus control. 3. Compensatory Techniques: regular oral hygiene, upright positioning during PO intake (up to chair if possible), cues to consume small bites/sips, one bite/sip at a time, encourage mastication cycle, cue to initiate swallow, consider purchasing volume controlled cup/straw to limit size of bolus with thin liquids. 4. Supervision with meals/snacks: constant. (4) Atrial fibrillation Status: Chronic Hospital Course & Plan: She had been managed with carvedilol, diltiazem, and Xarelto. Her diltiazem was stopped (due to decreased EF) and her carvedilol dose was increased to 6.25mg BID. (5) Dementia Status: Chronic Hospital Course & Plan: She has significant underlying dementia and she did have some acute delirium on admission. Her acute infectious process was treated and she improved. (6) Heart failure with reduced ejection fraction Status: Chronic Hospital Course & Plan: She did receive a dose of IV Bumex in the ER prior to admission and the was placed on oral Bumex. Diltiazem she has used for her a-fib was stopped as above, and her carvedilol was increased. Her creatinine increased on the Bumex so this was discontinued prior to discharge. Departure Weight (Pounds): 109 Weight (Ounces): 5.9 Result Diagram: 11/18/1861211/18/1813 Condition: Improved Discharge: Home, Home Health PT/OT Follow Up For: PT For Strengthening, OT For ADL's, PT Evaluation and Treat, ST Evaluation and Treat Home Health RN Follow Up For: Nursing Assessment Discharge Code Status: DNR, DNI Time Spent: < 30 min Discharge Instructions Home Meds Active Scripts Diltiazem Hcl (CARTIA XT) 120 Mg Cap.er.24h, 1 TAB PO DAILY for 90 Days, #90 CAP 4 Refills Prov:AYAH HINKLE MD 06/10/18 Carvedilol (CARVEDILOL) 6.25 Mg Tab, 6.25 MG PO daily for 90 Days, #180 TAB 4 Refills Prov:AYAH HINKLE MD 04/08/18 Lisinopril (LISINOPRIL) 20 Mg Tablet, 20 MG PO QDAY for 90 Days, #90 TAB 4 Refills Prov:AYAH HINKLE MD 04/08/18 Rivaroxaban 15 Mg (XARELTO 15 MG) 15 Mg Tablet, 1 TAB PO QAM for 90 Days, #90 TAB 4 Refills Prov:AYAH HINKLE MD 04/01/18 Reported Medications Calcium Carbonate (TUMS) 200 Mg Tab.chew, 200 MG PO, TAB.CHEW 10/30/18 Follow up Referrals: Internal Medicine - In One Week @ [facility]-Primary with AYAH HINKLE MD Activity: As Tolerated Special Instructions: RECOMMENDATIONS FOR DIT 1. Diet: mechanically altered, thin liquids. 2. Medications: Whole, one at a time, immersed in puree to improve cohesion of multiple textures due to pts reduced oral bolus control. 3. Compensatory Techniques: regular oral hygiene, upright positioning during PO intake (up to chair if possible), cues to consume small bites/sips, one bite/sip at a time, encourage mastication cycle, cue to initiate swallow, consider purchasing volume controlled cup/straw to limit size of bolus with thin liquids. 4. Supervision with meals/snacks: constant. Copies to: AYAH HINKLE MD ; Venous Thromboembolism Antithrombotics Is Pt On Any Antithrombotics?: Yes [id number] Certification Face to Face Home Health Certification Patient's Primary Care Provider: Ayah Hinkle MD Institutional Provider conducted the [id number] encounter. Electronic Undersigning Physician Certifies Home Health. I certify that the patient has been under my care and that I had a [id number] encounter that meets the physician [id number] encounter requirements with this patient. This patient is home-bound due to safety issues and continues to require assistance with ADL's. I certify that based on my findings, that Nursing, Aides and the following Home Health services are medically necessary:PT/OT/ST Medical Necessity: Nursing, Rehab Date Face to Face Conducted: Nov 18, 2018 REG AKERS MD Nov 18, 2018 14:21
[2018-11-18] MEDS ORDERED: CAR6.25 PO (14:34)
== END 2018-11-18 15:15 | disposition home health service (06) | DRG 947 ==
LOC: ECF 12:50
PROVIDERS: ADMIT Internal Medicine; ATTEND Internal Medicine
DX: R53.1 Weakness (principal); J18.9 Pneumonia, unspecified organism; I50.22 Chronic systolic (congestive) heart failure; I11.0 Hypertensive heart disease with heart failure; I48.2 Chronic atrial fibrillation; R13.10 Dysphagia, unspecified; F03.90 Unspecified dementia, unspecified severity, without behavioral disturbance, psychotic disturbance, mood disturbance, and anxiety; M81.0 Age-related osteoporosis without current pathological fracture; Z79.01 Long term (current) use of anticoagulants; Z88.2 Allergy status to sulfonamides; Z88.8 Allergy status to other drugs, medicaments and biological substances
CPT/HCPCS: 36415; 74230; 82040; 82247; 82310; 82374; 82435; 82565; 82947; 84075; 84132; 84155; 84295; 84450; 84460; 84520; 85025; 94640; 94667; 94668; 97161; 97166

== ENCOUNTER 2018-12-04 15:54 | Emergency (ER) | payer MEDICARE, OTHER ==
[2018-10-31 11:05] VITALS: Wt 49.9 kg
[2018-12-04] MEDS ORDERED: IOPAMIDOL 76% 150 ML INFUS BTL 150 ML ONE (16:53)
[2018-12-04] MEDS ORDERED: NS 0.9% 25 ML BAG 50 ML ONE (16:55)
--- NOTE | 2018-12-04 16:58 | ER Report ---
History and Physical Time Seen By MD: 16:00 Hx. of Stated Complaint: PATIENT SENT FROM DOCTORS OFFICE FOR CTA HPI/ROS CHIEF COMPLAINT: sent in for CT by pcp HISTORY OF PRESENT ILLNESS: Pt was admitted for R sided pneumonia not two long ago. Pt at home last two days has had some pain on right side of chest that hurts to take a deep breath. Followed up with her pcp today and they did out patient blood work and xray. Pts xray showed improving pneumonia however d- dimer was positive so pcp sent her to ed for CT of chest to rule out PE. Pt is already on xeralto. PCP was concerned she may have missed a dose of her blood thinner. Pts shannan is in room and states that she gives her mom her meds daily and she did not miss any medication. Pt denies pain with eating. No fevers. was dizzy earlier. REVIEW OF SYSTEMS: Constitutional: No fever, no chills. Eyes: No discharge. ENT: No sore throat. Cardiovascular: + chest pain, no palpitations. Respiratory: + cough, + shortness of breath, + pain with deep breath. Gastrointestinal: No abdominal pain, no vomiting. Genitourinary: No hematuria. Musculoskeletal: No back pain. Skin: No rashes. Neurological: No headache. Allergies: Coded Allergies: Sulfa (Sulfonamide Antibiotics) (Verified Allergy, Severe, ANAPHYLAXIS, 09/16/17) edoxaban (Verified Allergy, Unknown, 09/16/17) Home Meds Active Scripts Carvedilol (CARVEDILOL) 6.25 Mg Tab, 6.25 MG PO BID, #60 TAB Prov:REG AKERS MD 11/18/18 Lisinopril (LISINOPRIL) 20 Mg Tablet, 20 MG PO QDAY for 90 Days, #90 TAB 4 Refills Prov:AYAH HINKLE MD 04/08/18 Rivaroxaban 15 Mg (XARELTO 15 MG) 15 Mg Tablet, 1 TAB PO QAM for 90 Days, #90 TAB 4 Refills Prov:AYAH HINKLE MD 04/01/18 Reported Medications Calcium Carbonate (TUMS) 200 Mg Tab.chew, 200 MG PO, TAB.CHEW 10/30/18 Past Medical/Surgical History Pmhx: afib, dementia, cva, htn, phtn, gerd, hiatal hernia, gout, hyperparathyroid, OA Pshx; Hyster, TA, valve repair, hernia, SBO Reviewed Nurses Notes: Yes Old Medical Records Reviewed: Yes Hx Smoking: No Smoking Status: Never Smoker Hx Substance Use Disorder: No Hx Alcohol Use: No Constitutional Vital Sign - Last 24 Hours 12/04/18 12/04/18 15:55 16:08 Temp 98.5 Pulse 98 Resp 18 B/P (MAP) 166/113 Pulse Ox 90 O2 Delivery Nasal Cannula O2 Flow Rate 2.0 Physical Exam General Appearance: The patient is alert, has no immediate need for airway protection and no signs of toxicity. Eyes: Pupils equal and round no pallor or injection, EOMI ENT: no pharyngeal erythema or exudates, Mucous membranes are moist, TM are nl b/l Respiratory: There are no retractions, lungs are clear to auscultation. Cardiovascular: Regular rate and rhythm. pulses are equal and symmetrical, + murmur Gastrointestinal: Abdomen is soft minimally tender ruq, no masses, bowel sounds normal, no guarding, no rigidity or rebound Neurological: Cranial nerves II-XII grossly intact, no sensory or motor loss Skin: Warm and dry, no rashes. Musculoskeletal: Neck is supple non tender, no vertebral tenderness Extremities are non tender, nonswollen and have full range of motion. DIFFERENTIAL DIAGNOSIS: After history and physical exam differential diagnosis was considered for resolving pneumonia, pleurisy, pe, acute cholecystitis Medical Decision Making EKG/Imaging Imaging US: + gallstones but no gallbladder wall thickening. ED Course/Re-evaluation ED Course Pt has ruq pain so will obtain US of gallbladder in addition to her CT of her chest that her pcp requested. Pts labs from earlier today were stable for CT 12/04/2018 5:45:36 pm Pt US shows gallstones. pts labs were stable and no gall bladder wall thickening. Pt did c/o of pain with palpation however pt c/o of palpation almost every place I touched. I suspect may be related to early dementia. Pt is on blood thinners and without abnl labs or fever I feel it will be okay for patient to follow up with surgery as outpt. If she develops fevers or worsening symptoms then she should return for acute cholecystitis. 12/04/2018 5:55:30 pm Spoke with radiologist. No PE. Pt still with some inflammation in lungs from pneumonia but much improved. I suspect pt has some pleurisy from pneumonia. PT to follow up [facility] surgery for gallbladder. Decision to Disposition Date: Dec 04, 2018 Decision to Disposition Time: 17:57 Depart Departure Latest Vital Signs Vital Signs Date Time Temp Pulse Resp B/P (MAP) Pulse Ox O2 Delivery O2 Flow Rate FiO2 12/04/18 16:08 98.5 98 18 166/113 90 Nasal Cannula 12/04/18 15:55 2.0 Core Temperature (Celsius): ??? Impression: Primary Impression: Pleurisy Additional Impression: Cholelithiases Condition: Condition Unchanged Disposition: HOME OR SELF-CARE Referrals: AYAH HINKLE MD (PCP) CAL DICKENS MD Follow up as needed for your gallbladder. Patient Instructions: Gallstones (ED), Pleurisy (ED) Additional Instructions: You do not have a blood clot. You do have some gallstones. Follow up with surgery as an out patient to determine if you should have your gallbladder removed at a later date. Return as needed. Problem Qualifiers Additional Impression: Cholelithiases Cholelithiasis location: gallbladder Cholecystitis presence: without cholecystitis Biliary obstruction: without biliary obstruction Qualified Codes: K80.20 - Calculus of gallbladder without cholecystitis without obs truction SOREN HERNANDEZ DO Dec 04, 2018 16:58
--- NOTE | 2018-12-04 17:37 | RADIOLOGY IMAGING REPORT ---
[place] [facility] [place]IENT NAME: Milagros Portillo : 1935 MR: [id number] V: [id number] EXAM DATE: ORDERING PHYSICIAN: SOREN HERNANDEZ TECHNOLOGIST: Location: [facility] Patient: Milagros Portillo : 1935 Visit/Account:[id number] Date of Sevice: 12/04/2018 EXAMINATION: Right upper quadrant abdominal ultrasound HISTORY: Right upper quadrant pain. COMPARISON: None. FINDINGS: Liver: Normal hepatic echotexture. There is a 1.8 cm cyst in the left lobe of the liver. No other fo farzana liver lesions identified. Antegrade flow is visualized in the main portal vein. Gallbladder: Cholelithiasis. There are several small mobile stones layering in the dependent gallbla dder, measuring up to 4 mm. No gallbladder wall thickening or pericholecystic fluid. The training specialist indicated a positive sonographic Tejada sign. Bile Ducts: No biliary ductal dilatation. The common duct measures 4 mm. Pancreas: The head and body of the pancreas are moderately well visualized and unremarkable where se en. Right kidney: Normal echogenicity of the right kidney. The renal cortical parenchyma is maintained. N o hydronephrosis. The right kidney measures 11.4 cm in length. There is a dominant 4.6 cm cortical c yst arising from the lower pole of the right kidney with an additional 1.1 cm cyst along the upper ri ght kidney. Aorta: Segmentally visualized proximally. Patent and normal in caliber where seen. IVC: Patent. Ascites: None. IMPRESSION: 1. Cholelithiasis, with several small mobile gallstones visualized within the gallbladder. 2. Otherwise normal ultrasound appearance of the gallbladder, but with a reported positive sonographi c Tejada sign. This is of uncertain clinical significance and should be correlated with other clinica l and/or laboratory evidence for cholecystitis. 3. No bile duct dilatation. 4. Hepatic and right renal cysts. Report Dictated By: Arnulfo Hicks MD at 12/04/2018 5:26 PM Report E-Signed By: Arnulfo Hicks MD at 12/04/2018 5:33 PM WSN:[id number]
--- NOTE | 2018-12-04 18:06 | RADIOLOGY IMAGING REPORT ---
[place] [facility] [place]: Milagros Portillo : 1935 MR: [id number] V: [id number] EXAM DATE: ORDERING PHYSICIAN: SOREN HERNANDEZ TECHNOLOGIST: Location: [facility] [place] Patient: Milagros Portillo : 1935 Visit/Account:[id number] Date of Sevice: 12/04/2018 CT CTA CHEST W & W/O CON HISTORY: + d-dimer; pleuritic chest pain One of the following dose optimization techniques was utilized in the performance of this exam: Autom ated exposure control; adjustment of the mA and/or kV according to the patient's size; or use of an i terative reconstruction technique. Specific details can be referenced in the facility's radiology C T exam operational policy.. TECHNIQUE: CTA chest with contrast. 3D coronal slab MIPs and 2D reconstructions in the coronal and sagittal planes were also created. CONTRAST: 75 mL of Isovue-370 COMPARISON: CT scan of the chest from 10/31/2018. FINDINGS: Vessels: Well-opacified pulmonary arteries. No pulmonary emboli identified. Main pulmonary artery measuring measures 3.3 cm. Heart and pericardium: Heart is enlarged. Mitral valve replacement I Mediastinum and hilum: Negative Lymph nodes: Negative. Lungs/pleura: There are patchy interstitial reticular nodular changes within the right lung with foc al areas of soft tissue nodularity in the right lateral lung field corresponding to the previously se en areas of focal consolidation. Persistent volume loss and consolidative changes noted in the right lower lung field. Small left effusion. Generalized increased interlobular septal and curly B mary es suggesting probable compensated mild congestive changes. Visualized upper abdomen: Gastric herniation into the right lower chest medially. Reflux in the rig ht hepatic veins compatible with right heart strain. Lower neck: Negative. Bones/soft tissues: Negative. IMPRESSION: 1. No evidence of pulmonary embolus. Probable compensated mild congestive changes 2. Right lung tree-in-bud" bronchiolitis changes with overall improvement in the degree of the focal parenchymal opacities and consolidations previously seen and described in the right lung. 3. Small left effusion. 4. Large right lung gastric hernia. Report Dictated By: Leonidas Blanco MD at 12/04/2018 5:38 PM Report E-Signed By: Leonidas Blanco MD at 12/04/2018 6:02 PM WSN:[email or web address]
[2018-12-04 18:11] VITALS: BP 148/88
== END 2018-12-04 18:11 | disposition home or self-care (01) ==
LOC: ER 16:12
DX: R09.1 Pleurisy (principal); K80.20 Calculus of gallbladder without cholecystitis without obstruction
CPT/HCPCS: 71275; 76705; 99284; Q9967

== ENCOUNTER → 2018-12-04 | Outpatient (CLI) | payer MEDICARE, OTHER ==
[2018-10-31 11:05] VITALS: BMI 19.4
--- NOTE | 2018-12-04 15:02 | RADIOLOGY IMAGING REPORT ---
FACILITY: [facility] [place] PATIENT NAME: Milagros Portillo : 1935 MR: [id number] V: [id number] EXAM DATE: ORDERING PHYSICIAN: NGA KIRKPATRICK TECHNOLOGIST: [place] [facility] [place] Milagros Port[place] : 1935 Visit/Account:[id number] Date of Sevice: 12/04/2018 Chest with lateral, two views. HISTORY: Right upper abdomen pain. COMPARISON: 10/30/2018. The patient is rotated to the left on the frontal view. Surgical wires are present in the sternum. Metal clips are present in the anterior mediastinum. A metal valve ring projects on the heart. Mode rate cardiomegaly is unchanged. The thoracic aorta is elongated and calcified. Central pulmonary ar teries are mildly enlarged. The lungs are voluminous. Patchy bilateral lung infiltrates have decrea sed. Mild streaky densities are present in the lung bases. No pleural fluid. The bones are osteopo rotic. Degenerative changes are present in the spine. The abdominal aorta is calcified. Calcific d ensities project on the left lateral abdomen. IMPRESSION: Bilateral lung infiltrates, decreased. COPD. Moderate cardiomegaly. Bibasilar subsegmental atelectasis or pleural parenchymal scars. Aortic atherosclerosis. Report Dictated By: Brando Suarez MD at 12/04/2018 2:54 PM Report E-Signed By: Brando Suarez MD at 12/04/2018 2:57 PM WSN:[email or web address]
[2018-12-04 15:30] LABS: PLATELET COUNT, AUTOMATED 141 K/uL (150-450)
== END ==
LOC: LAB 14:11
PROVIDERS: ATTEND Nurse Practitioner Primary Care
DX: I51.7 Cardiomegaly (principal); I70.0 Atherosclerosis of aorta; J98.11 Atelectasis
CPT/HCPCS: 36415; 71046; 82040; 82150; 82247; 82310; 82374; 82435; 82565; 82947; 83690; 84075; 84132; 84155; 84295; 84450; 84460; 84520; 85025; 85379